=== PATIENT | female | born 1960 | race Caucasian/White ===

== ENCOUNTER 2018-10-14 22:18 | Outpatient (REF) | payer BC, SELFPAY ==
[2018-10-15 01:13] LABS: ALT 28 U/L (12-78); AST 15 U/L (15-37); Alkaline Phosphatase 98 U/L (46-116); Anion Gap 9.5 mmol/L (3-11); BUN 26 mg/dL (7-18); Bilirubin, Total 0.2 mg/dL (0.2-1.0); CO2 29.5 mmol/L (21.0-32.0); CREATININE 0.75 mg/dL (0.55-1.02); Calcium 9.5 mg/dL (8.5-10.1); Chloride 104 mmol/L (98-107); Cholesterol 169 mg/dL (50-200); Glucose 95 mg/dL (70-100); HDL Cholesterol 48 mg/dL (40-60); LDL CHOLESTEROL 99 mg/dL (<100); Potassium 4.4 mmol/L (3.5-5.1); Sodium 143 mmol/L (136-145); Total Protein 7.2 g/dL (6.4-8.2); Triglyceride 121 mg/dL (30-150)
== END 2018-10-14 22:38 ==
LOC: NCHCN 22:18
PROVIDERS: PCP Physician Assistant Medical; Visit Provider Physician Assistant Medical
DX: Z00.00 Encounter for general adult medical examination without abnormal findings (principal); R73.01 Impaired fasting glucose; I10 Essential (primary) hypertension
CPT/HCPCS: 80053; 80061; 83721

== ENCOUNTER 2019-02-22 06:06 | Day surgery (SDC) | payer MEDICAID, SELFPAY ==
[2019-02-22 06:32] VITALS: BP 137/83; PULSE 70; RESP 16; TEMP 36.8; O2SAT 99
--- NOTE | 2019-02-22 06:43 | W.COLOREPORT ---
Date of service: 02/22/19 Time of Service: 07: Colonoscopy Report Date of procedure: 02/22/19 Pre-op diagnosis general: Colon Cancer Screening Post-op diagnosis procedure note: same Procedure: Colonoscopy Surgeon: Licha Zepeda Anesthesia proc note operative: other (General/ ASA 2/Philip Benson, ROSE MARIE) Estimated blood loss (mL): 0 Pathology: none sent Complications: None Disposition: same day Indications: Mrs. Le is a pleasant 58 year old female who is here for a colonoscopy. Her last Colonoscopy was in 2008 and was normal. Risks, benefits and complications have been reviewed. Complications include but are not limited to bleeding, pain, perforation, missed small lesion/polyp, sore throat, aspiration and adverse reaction to the medications. Questions were entertained and answered to their satisfaction and they wished to proceed. No guarantees were given or implied. Prep: Miralax/Dulcolax Procedure Start Time: :26 Procedure End Time: :45 Retraction Time: 15 minutes Findings: Normal colon Procedure Description: After informed consent was obtained the patient was taken to the procedure room and placed in a left decubitous position. Monitors were applied and a time out was done. The patients name, date of , procedure, allergies to medications and metal in their body was reviewed. The patient was then sedated. Once sedated and comfortable a rectal exam was done. External exam was normal. Internal exam revealed a normal sphincter tone and no palpable masses. The scope was then introduced and retro-flexed. No internal hemorrhoids, polyps or masses were identified. The scope was then advanced to the cecum without difficulty. The TI and appendiceal orifice were identified. The prep was good. The scope was then slowly retracted over 15 minutes back into the rectum. There were no polyps and no diverticula. The scope was removed and the patient was woken up and taken back to Same day surgery in stable condition. The patient tolerated the procedure well and there were no immediate complications. Follow up: The patient should follow up in 10 years unless they develop changes in bowel habits or other new gastrointestinal complaints.
--- NOTE | 2019-02-22 06:46 | COLE_ITS ---
Date of service: 02/22/19 Time of Service: 07:26 Colonoscopy Report Date of procedure: 02/22/19 Pre-op diagnosis general: Colon Cancer Screening Post-op diagnosis procedure note: same Procedure: Colonoscopy Surgeon: Licha Zepeda Anesthesia proc note operative: other (General/ ASA 2/Philip Benson, ROSE MARIE) Estimated blood loss (mL): 0 Pathology: none sent Complications: None Disposition: same day Indications: Mrs. Le is a pleasant 58 year old female who is here for a colonoscopy. Her last Colonoscopy was in 2008 and was normal. Risks, benefits and complications have been reviewed. Complications include but are not limited to bleeding, pain, perforation, missed small lesion/polyp, sore throat, aspiration and adverse reaction to the medications. Questions were entertained and answered to their satisfaction and they wished to proceed. No guarantees were given or implied. Prep: Miralax/Dulcolax Procedure Start Time: :26 Procedure End Time: :45 Retraction Time: 15 minutes Findings: Normal colon Procedure Description: After informed consent was obtained the patient was taken to the procedure room and placed in a left decubitous position. Monitors were applied and a time out was done. The patients name, date of , procedure, allergies to medications and metal in their body was reviewed. The patient was then sedated. Once sedated and comfortable a rectal exam was done. External exam was normal. Internal exam revealed a normal sphincter tone and no palpable masses. The scope was then introduced and retro-flexed. No internal hemorrhoids, polyps or masses were identified. The scope was then advanced to the cecum without difficulty. The TI and appendiceal orifice were identified. The prep was good. The scope was then slowly retracted over 15 minutes back into the rectum. There were no polyps and no diverticula. The scope was removed and the patient was woken up and taken back to Same day surgery in stable condition. The patient tolerated the procedure well and there were no immediate comp lications. Follow up: The patient should follow up in 10 years unless they develop changes in bowel habits or other new gastrointestinal complaints.
--- NOTE | 2019-02-22 06:46 | W.PM.DSUDISC ---
Discharge Plan Disposition Patient Disposition: HOME Condition: Good Discharge Details Reason For Visit: Colonoscopy Attending Provider: Licha Zepeda Primary Care Provider: Jewel Figueroa Home Meds and New Rx's Prescriptions: Continued glucosamine-chondroitin 900 mg tablet PO RF: 0 lisinopril-hydrochlorothiazide 10-12.5 mg tablet 1 tab PO DAILY RF: 0 aspirin [Adult Low Dose Aspirin] 81 mg tablet,delayed release (DR/EC) 81 mg PO DAILY RF: 0 Glucos Chond Cplx Advanced 750 mg-100 mg- 125 mg-1.65 mg tablet 2 tab PO RF: 0 Discontinued polyethylene glycol 3350 17 gram/dose powder 238 g PO ONCE Qty: 238 RF: 0 bisacodyl [Dulcolax (bisacodyl)] 5 mg tablet,delayed release (DR/EC) 5 mg PO ONCE Qty: 4 RF: 0 Discharge Instructions Instructions: Colonoscopy (DC) Additional Instructions: Findings: Normal large bowel Follow up: 10 years Please call if you develop: fevers >101.5 Nausea or Vomiting Abdominal pain that is not transient DAY SURGERY UNIT POST COLONOSCOPY INSTRUCTIONS 1. Because there will be medication in your system for the next 24 hours, you may feel a little sleepy. Your coordination will be affected. Therefore: a. Do not drive or operate dangerous equipment for 24 hours. b. Do not drink alcohol beverages for 24 hours (not even beer). c. Plan to go home and rest for the day. 2. Generally there are no restrictions on your activity after a day or so has gone by, but you may feel a bit fatigued for a few days. 3 After you arrive home you may have a light meal and return to a normal diet as you can tolerate it without feeling sick to your stomach. 4. After surgery, you may feel pain or discomfort. This should be only transient, but if it persists please contact your doctor. 5. If there are any questions regarding the findings of your procedure, please feel free to contact your doctor. 6. If you are unable to contact your doctor with a problem, contact the hospital at [phone]. 7. Continue all your regular medications unless directed otherwise. I understand the above instructions and have no questions. Signature of Patient or Responsible Adult Escort Date/Time Name of Responsible Adult Escort Signature of Nurse Date/Time Activity:: Activity as Tolerated Diet:: As Tolerated Discharge Orders Discharge Orders: Discharge Order (Routine); Ordered 02/22/19 Ordered By: Licha Zepeda DS: Diagnosis Discharge Diagnosis (1) S/P colonoscopy: Status: Acute
[2019-02-22] MEDS: Lactated Ringers 1,000 ML 80 ML IV (06:49)
[2019-02-22 08:19] VITALS: BP 153/77; PULSE 61; RESP 16; TEMP 35.9; O2SAT 100
== END 2019-02-22 08:46 | disposition home or self-care (01) ==
PROVIDERS: PCP Physician Assistant Medical; Visit Provider Surgery
PROC: 0DJD8ZZ Inspection of Lower Intestinal Tract, Via Natural or Artificial Opening Endoscopic (ICD-10-PCS; CPT 45378; principal; 2019-02-22 07:30)
DX: Z12.11 Encounter for screening for malignant neoplasm of colon (principal); I10 Essential (primary) hypertension
CPT/HCPCS: 45378

== ENCOUNTER 2019-11-23 22:23 | Outpatient (REF) | payer MEDICAID, SELFPAY ==
[2019-11-23 21:08] LABS: Anion Gap 10.1 mmol/L (3-11); BUN 17 mg/dL (7-18); CO2 28.9 mmol/L (21.0-32.0); CREATININE 0.84 mg/dL (0.55-1.02); Calcium 9.7 mg/dL (8.5-10.1); Chloride 103 mmol/L (98-107); Glucose 91 mg/dL (74-106); Potassium 4.4 mmol/L (3.5-5.1); Sodium 142 mmol/L (136-145)
[2019-11-23 21:51] LABS: Hemoglobin A1C 6.1 % (3.8-5.6)
== END 2019-11-23 22:43 ==
LOC: NCHCN 22:23
PROVIDERS: PCP Physician Assistant Medical; Visit Provider Physician Assistant Medical
DX: I10 Essential (primary) hypertension (principal); R73.01 Impaired fasting glucose
CPT/HCPCS: 80048; 83036

== ENCOUNTER 2020-09-18 17:21 | Emergency (ER) | payer MEDICAID, SELFPAY ==
[2020-09-18 17:29] VITALS: BP 198/91; PULSE 115; RESP 20; TEMP 36.8; O2SAT 98
--- NOTE | 2020-09-18 17:45 | DI.CT_ITS ---
EXAM: CT ABDOMEN PELVIS W CLINICAL HISTORY: abdominal pain TECHNIQUE: Imaging Protocol: Axial computed tomography images with coronal and sagittal reformatted images were created and reviewed CONTRAST MATERIAL: Intravenous: Omnipaque 350 Contrast volume:100 mL Oral: No COMPARISON: CT RENAL COLIC WO CONTRAST from 05/09/2011 FINDINGS: ABDOMEN: Lung Bases: And atelectasis. Liver: Diffuse decreased attenuation suggesting fatty infiltration. Simple hepatic cysts are noted. No measurable mass. Portal, Superior Mesenteric, and Splenic Veins: Unremarkable. Gallbladder and Biliary Tract: The gallbladder is absent. There is unchanged dilatation of the extra hepatic bile ducts. Pancreas: Normal density, no abnormal calcifications or inflammatory process. Spleen: There is a 1.3 cm hypodense lesion in the spleen. Adrenals: No masses seen. Kidneys: Normal size, contour and axis. No radiodense stones or obstructive uropathy. Hypodensities a re seen in the kidneys bilaterally. They are too small for further characterization but likely refle ct small cysts. Abdominal Aorta: Abdominal portion non-dilated. Atherosclerosis. Bowel: No obstruction or bowel wall thickening. Appendix is unremarkable. Peritoneal Cavity: No ascites, collection or mesenteric inflammatory response. Lymph Nodes: Within normal limits. Bones: Unremarkable. Soft Tissues: Unremarkable. PELVIS: Bladder: Incompletely distended but grossly unremarkable. Reproductive Organs: Status post hysterectomy. Lymph Nodes: Within normal limits. Bones: Within normal limits. IMPRESSION: No acute abdominal or pelvic process. RADIATION DOSE DELIVERED: 914mGy.cm Total DLP DATA REPOSITORY: All CT scans at this facility are submitted to the National Radiology Data Registry (NRDR) Dose Index Registry (DIR) with the [employer] (A[employer]). RADIATION OPTIMIZATION: All CT scans at this facility use at least one of these dose optimization te chniques: automated exposure control; mA and/or kV adjustment per patient size (includes targeted exa ms where dose is matched to clinical indication); or iterative reconstruction.
--- NOTE | 2020-09-18 17:47 | ED.GENADUL_ITS ---
Discharge Plan Disposition Patient Disposition: HOME Condition: Stable Discharge Details Clinical Impression: Abdominal pain, Hypokalemia Primary Care Provider: Jewel Figueroa ED Provider: Elissa Juan Home Meds and New Rx's Prescriptions: Continued glucosamine-chondroitin 900 mg tablet PO RF: 0 lisinopril-hydrochlorothiazide 10-12.5 mg tablet 1 tab PO DAILY RF: 0 aspirin [Adult Low Dose Aspirin] 81 mg tablet,delayed release (DR/EC) 81 mg PO DAILY RF: 0 Glucos Chond Cplx Advanced 750 mg-100 mg- 125 mg-1.65 mg tablet 2 tab PO DAILY RF: 0 hydrochlorothiazide 12.5 mg tablet 12.5 mg PO DAILY RF: 0 Discharge Instructions Instructions: Hypokalemia (ED), Abdominal Pain (ED) Additional Instructions: Please return immediately to the emergency department if you develop any new or worsening symptoms, if your condition does not improve as expected, or if you become otherwise concerned. It is extremely important that you call soon as possible to make an appointment to be seen in follow-up for this visit by your primary care doctor. Referrals: Jewel Figueroa PA [Primary Care Provider] - Discharge Data Discharge Date/Time-TO BE ENTERED AT DEPARTURE: 09/19/20 00:06 Medical Decision Making Colleen Le is a 60-year-old woman with a history of hypertension who presented to the emergency department with suprapubic pain morning that became generalized abdominal pain, also with some left flank pain, felt similar to prior kidney stone. Accompanied by 1 episode of vomiting earlier this morning. On exam patient is well and nontoxic-appearing. She appears comfortable. There is mild generalized tenderness to palpation of the abdomen. No rebound, no guarding, no pulsatile mass, no other mass, no CVA tenderness to palpation. Concern for kidney stone, UTI, other. Exam/history at this time is not consistent with acute aortic pathology, acute coronary syndrome, sepsis, mesenteric ischemia. Plan for CT abdomen/pelvis, screening labs, IV fluid hydration. Will monitor and reassess. Potassium 2.9, will replete. CT negative for acute pathology. Patient reporting mild suprapubic pain at this time. Discussed plan for discharge pending potassium repletion, patient is amenable. Potassium running slowly due to burning with infusion. P.o. potassium given. Will recheck BMP. Repeat BMP okay. Okay for d/c home. I had a lengthy discussion with Patient regarding return to emergency department precautions, home care, and importance of outpatient follow-up. Pt verbalizes understanding of the plan and is amenable. Patientwith clear plan for outpatient follow-up. All questions were answered. Disposition decision was made weighing the risks and benefits of hospitalization versus outpatient treatment, the risk for further decompensation, and the patient's wishes. Medical Records Medical records reviewed: Yes I reviewed the patient's medical records. Imaging Data Radiologic Study: Attestation: I personally reviewed and interpreted this imaging study as follows: Radiologist's impression: Exam(s) Addendum created by Beny Lawrence MD on 09/18/2020 9:34:25 PM EST: Questionable 2 mm nonobstructing right renal calculus. 6 mm right renal cortical cyst, appears to be simple. The gallbladder is not identified. CBD is mildly dilated, approximately 13 mm within the proximal portion, tapers distally. Trace intrahepatic biliary ductal dilatation proximally. Initial report created on 09/18/2020 7:40:29 PM EST: PROCEDURE INFORMATION: Exam: CT Abdomen And Pelvis With Contrast Exam date and time: 09/18/2020 7:04 PM Age: 60 years old Clinical indication: Abdominal pain; Generalized TECHNIQUE: Imaging protocol: Computed tomography of the abdomen and pelvis with intravenous contrast. COMPARISON: No relevant prior studies available. FINDINGS: Lungs: Nonspecific bilateral dependent pleuroparenchymal changes in the lungs. Liver: 8 mm cyst between hepatic segments Nito numeral 8 and IV. Hepatic segment cyst measuring approximately 16 mm in diameter. Enlarged liver measures 17.4 cm in craniocaudal dimension. Gallbladder and bile ducts: No calcified stones. No ductal dilation. Pancreas: Unremarkable. No ductal dilation. Spleen: Hypodense splenic lesion, approximately 13 mm in diameter, possible cyst. Faint calcifications along the capsule of the spleen, may represent sequela of an old trauma or old splenic hemorrhage. Adrenal glands: Normal. No mass. Kidneys and ureters: Unremarkable. No hydronephrosis. Stomach and bowel: Unremarkable. No obstruction. No mucosal thickening. Appendix: Normal appendix. Intraperitoneal space: No free air. No significant fluid collection. Vasculature: Atherosclerotic distal abdominal aorta and branches. Lymph nodes: No enlarged lymph nodes. Urinary bladder: Unremarkable as visualized. Reproductive: Status post hysterectomy. Bones/joints: Unremarkable. No acute fracture. Soft tissues: The abdomen is obese. IMPRESSION: No acute intra-abdominal pathology. Lab Data Lab results reviewed: Yes I reviewed the patient's lab results. Labs: Laboratory Tests Range/Units 09/18/20 09/18/20 09/18/20 18:00 18:00 18:00 WBC (4.4-10.8) 10^3/uL 11.41 H RBC (3.93-5.22) 10^6/uL 4.36 Hgb (11.2-15.7) g/dL 11.1 L Hct (36.0-46.0) % 34.8 L MCV (80-95) fL 79.8 L MCH (27.0-33.0) pg 25.5 L MCHC (32.0-36.0) % 31.9 L RDW (11.7-14.6) % 19.1 H Plt Count (130-400) 10^3/uL 354 MPV (8.0-11.0) fL 9.9 Immature Gran % 0.5 Neutrophils % 79.8 Lymphocytes % 11.9 Monocytes % 6.4 Eosinophils % 1.0 Basophils % 0.4 Nucleated RBC % % 0 Absolute Neutrophils (1.2-6.7) 10^3/uL 9.11 H Absolute Lymphocytes (1.2-3.4) 10^3/uL 1.36 Absolute Monocytes (0.1-0.8) 10^3/uL 0.73 Absolute Eosinophils (0.0-0.7) 10^3/uL 0.11 Absolute Basophils (0.0-0.2) 10^3/uL 0.05 Sodium (136-145) mmol/L 136 Potassium (3.5-5.1) mmol/L 2.9 L* Chloride (98-107) mmol/L 99 Carbon Dioxide (21.0-32.0) mmol/L 28.7 Anion Gap (3-11) mmol/L 8.3 BUN (7-18) mg/dL 25 H Creatinine (0.55-1.02) mg/dL 0.88 Estimated GFR/1.73 m2 (mL/min/1.73m2) >= 60.00 Glucose (74-106) mg/dL 157 H Calcium (8.5-10.1) mg/dL 9.7 Magnesium (1.8-2.4) mg/dL 2.0 Total Bilirubin (0.2-1.0) mg/dL 0.2 AST (15-37) U/L 15 ALT (14-59) U/L 29 Alkaline Phosphatase (46-116) U/L 91 Total Protein (6.4-8.2) g/dL 7.4 Albumin (3.4-5.0) g/dL 3.9 Lipase (73-393) U/L 101 Urine Color (Yellow) Urine Clarity (Clear) Urine pH (5-8) Ur Specific [place] (1.005-1.025) Urine Protein (Negative) mg/dL Urine Ketones (Negative) mg/dL Urine Blood (Negative) Urine Nitrite (Negative) Urine Bilirubin (Negative) Urine Urobilinogen (Up TO 0.2) EU/dL Ur Leukocyte Esterase (Negative) Urine RBC (0-2) HPF Urine WBC (0-5) HPF Ur Epithelial Cells (Negative) HPF Urine Crystals (Negative) HPF Urine Bacteria (Negative) HPF Urine Mucus (Negative) Ur Culture Indicated? Urine Glucose (Negative) mg/dL Range/Units 09/18/20 18:53 WBC (4.4-10.8) 10^3/uL RBC (3.93-5.22) 10^6/uL Hgb (11.2-15.7) g/dL Hct (36.0-46.0) % MCV (80-95) fL MCH (27.0-33.0) pg MCHC (32.0-36.0) % RDW (11.7-14.6) % Plt Count (130-400) 10^3/uL MPV (8.0-11.0) fL Immature Gran % Neutrophils % Lymphocytes % Monocytes % Eosinophils % Basophils % Nucleated RBC % % Absolute Neutrophils (1.2-6.7) 10^3/uL Absolute Lymphocytes (1.2-3.4) 10^3/uL Absolute Monocytes (0.1-0.8) 10^3/uL Absolute Eosinophils (0.0-0.7) 10^3/uL Absolute Basophils (0.0-0.2) 10^3/uL Sodium (136-145) mmol/L Potassium (3.5-5.1) mmol/L Chloride (98-107) mmol/L Carbon Dioxide (21.0-32.0) mmol/L Anion Gap (3-11) mmol/L BUN (7-18) mg/dL Creatinine (0.55-1.02) mg/dL Estimated GFR/1.73 m2 (mL/min/1.73m2) Glucose (74-106) mg/dL Calcium (8.5-10.1) mg/dL Magnesium (1.8-2.4) mg/dL Total Bilirubin (0.2-1.0) mg/dL AST (15-37) U/L ALT (14-59) U/L Alkaline Phosphatase (46-116) U/L Total Protein (6.4-8.2) g/dL Albumin (3.4-5.0) g/dL Lipase (73-393) U/L Urine Color (Yellow) Yellow Urine Clarity (Clear) Clear Urine pH (5-8) 6.0 Ur Specific [place] (1.005-1.025) 1.020 Urine Protein (Negative) mg/dL Negative Urine Ketones (Negative) mg/dL Negative Urine Blood (Negative) Trace-intact H Urine Nitrite (Negative) Negative Urine Bilirubin (Negative) Negative Urine Urobilinogen (Up TO 0.2) EU/dL 0.2 Ur Leukocyte Esterase (Negative) Negative Urine RBC (0-2) HPF 0-2 Urine WBC (0-5) HPF 0-2 Ur Epithelial Cells (Negative) HPF Few Urine Crystals (Negative) HPF Negative Urine Bacteria (Negative) HPF Negative Urine Mucus (Negative) Negative Ur Culture Indicated? No Urine Glucose (Negative) mg/dL Negative ECG Data Attestation: I personally reviewed and interpreted this ECG (s) as follows: Interpretation: EKG shows sinus rhythm at 74, normal axis, no acute ischemic changes, nondiagnostic EKG HPI General Mode of arrival: ambulatory . Date/Time Provider Initiated Documentation: 09/18/20 17:46 . Limitations to Documentation: no limitations . Information obtained by: patient, RN notes reviewed and old records reviewed . HPI Narrative: Colleen Le is a 60-year-old woman with a history of hypertension presenting to emergency department with abdominal pain. Patient reports that this morning she noticed suprapubic pain and had one episode of nonbloody nonbilious vomiting. Patient reports that pain seemed to wax and wane. As it has progressed patient reports generalized abdominal pain, and pain in her left flank. Patient reports that she currently feels fairly well, with minimal pain. She reports that pain has been waxing and waning throughout the day. Patient reports history of kidney stones, and states that this feels similar to her as kidney stone she has had in the past. She denies any other pain, fevers, other vomiting, diarrhea, numbness, weakness, rash. Patient reports she has been eating and drinking as usual. She reports that she has had some mild constipation recently, and took MiraLAX this morning after suprapubic pain and vomiting, and did have a bowel movement subsequently that was normal. Patient does report that her lower abdominal pain feels like cramping, as if she needs to have a bowel movement. Patient reports that she does have this type of pain intermittently every few months or so. Related Data Home Medications Medication Instructions Recorded Confirmed aspirin 81 mg tablet,delayed 81 mg PO DAILY 12/14/18 09/18/20 release [id number] 2 tab PO DAILY tab 12/14/18 09/18/20 750 mg-100 mg-125 mg-1.65 mg tablet lisinopril 10 1 tab PO DAILY 12/14/18 09/18/20 mg-hydrochlorothiazide 12.5 mg tablet antiarthritic combination no.2 900 mg PO tab 01/25/19 01/25/19 mg tablet hydrochlorothiazide 12.5 mg PO DAILY 09/18/20 09/18/20 Allergies Allergy/AdvReac Type Severity Reaction Status Date / Time amoxicillin Allergy Severe Swelling/Ed Verified 09/18/20 17:35 jorge Cephalosporins Allergy Severe unknown Verified 09/18/20 17:35 amitriptyline Allergy Mild unknown Verified 09/18/20 17:35 metoprolol [From Lopressor] Allergy Mild unknown Verified 09/18/20 17:35 Penicillins Allergy Mild unknown Verified 09/18/20 17:35 rofecoxib [From Vioxx] Allergy Mild unknown Verified 09/18/20 17:35 General Stated Complaint: Abd Prob STEVE: 3 Review of Systems Narrative: Constitutional: denies fevers Eyes: denies eye pain ENT: denies ear pain, dental pain, sore throat Cardiovascular: denies chest pain Respiratory: denies SOB, cough GI: denies diarrhea, reports abdominal pain, vomiting : denies dysuria, reports left flank pain MSK: denies back pain, neck pain, arthralgias, myalgias Skin: denies rash Neuro: denies headaches, numbness, weakness [facility] Medical History Hypertension Surgical History (Updated 02/22/19 @ 06:46 by Licha Zepeda MD) H/O section History of colonoscopy History of partial hysterectomy Hx of cholecystectomy S/P colonoscopy (~02/22/19) 2009- Family History (Updated 02/22/19 @ 06:31 by Kristi Christian) Other COPD (chronic obstructive pulmonary disease) Diabetes Heart disease Social History Smoking/Tobacco Use Status: Former Tobacco Use Smoking risk assessment performed?: Yes Alcohol Intake: current Alcohol Intake frequency: a few times a month Alcohol type: wine Drug use: Never Substance use type: does not use Do you feel safe at home: Yes Do you feel safe in your relationship?: Yes Exam Narrative Exam Narrative: Constitutional: well and [id number], pleasant, conversing normally HENT: head atraumatic/normocephalic/normal inspection, mucous membranes moist Eyes: conjunctiva normal, sclera normal, pupils 3mm b/l Neck: no stridor, normal ROM, trachea midline Chest: normal inspection Resp: normal work of breathing, LCTAB Cardio: normal rate, normal rhythm, no murmur appreciated GI: abdomen soft, mild generalized tenderness to palpation, no rebound, no guarding, no pulsatile mass, no other mass, no CVA tenderness to palpation, non- distended Back: normal inspection, no rash Skin: warm, dry, normal color, no rash Neuro: alert, not altered, grossly non-focal, normal tone Ext: no edema Psych: normal mood, normal affect, normal behavior Course Vital Signs Vital signs: Vital Signs Temperature 36.8 C 09/18/20 17:29 Pulse 115 H 09/18/20 17:29 Respiratory Rate 20 09/18/20 17:29 Blood Pressure 198/91 H 09/18/20 17:29 Pulse Oximetry 98 09/18/20 17:29 Temperature 36.8 C 09/18/20 17:29 Temperature Source Temporal Artery Scan 09/18/20 17:29 Pulse 115 H 09/18/20 17:29 Respiratory Rate 20 09/18/20 17:29 Respiratory Effort Non-Labored 09/18/20 17:34 Blood Pressure 198/91 H 09/18/20 17:29 Blood Pressure Position Sitting 09/18/20 17:29 Pulse Oximetry 98 09/18/20 17:29 Oxygen Delivery Method Room Air 09/18/20 17:29 Oxygen Flow Rate 0 09/18/20 17:29 Pain Level 6 09/18/20 17:29
--- NOTE | 2020-09-18 18:00 | RT.EKG_ITS ---
APPROVED REPORT Exam: Resting ECG Patient Location: E HR:74 bpm ECG Measurements Heart Rate 74 AXIS ID 171 P 46 QRSd 77 QRS 20 QT 395 T 39 QTc 438 Conclusion Sinus rhythm...normal P axis, V-rate 60- 99 sinus rhythm at 74, normal axis, no acute ischemic changes, nondiagnostic EKG
[2020-09-18] MEDS: Normal Saline 250 ML 500 ML IV (18:07)
[2020-09-18 18:13] LABS: Abs Immature Grans 0.06 10^3/uL (0.0-0.06); Absolute Basophil Count 0.05 10^3/uL (0.0-0.2); Absolute Eosinophil Count 0.11 10^3/uL (0.0-0.7); Absolute Lymphocyte Count 1.36 10^3/uL (1.2-3.4); Absolute Monocyte Count 0.73 10^3/uL (0.1-0.8); Basophils % 0.4; HCT 34.8 % (36.0-46.0); HGB 11.1 g/dL (11.2-15.7); Immature Grans % 0.5; Lymphocytes % 11.9; MCH 25.5 pg (27.0-33.0); MCHC 31.9 % (32.0-36.0); MCV 79.8 fL (80-95); MPV 9.9 fL (8.0-11.0); Monocytes % 6.4; Neutrophils % 79.8; Nucleated RBC 0 %; Platelet Count 354 10^3/uL (130-400); RBC 4.36 10^6/uL (3.93-5.22); RDW 19.1 % (11.7-14.6); RDW-SD 54.4 fL; WBC 11.41 10^3/uL (4.4-10.8)
[2020-09-18 18:21] LABS: Absolute Neutrophil Count 9.11 10^3/uL (1.2-6.7)
[2020-09-18 18:27] LABS: ALT 29 U/L (14-59); AST 15 U/L (15-37); Albumin 3.9 g/dL (3.4-5.0); Alkaline Phosphatase 91 U/L (46-116); Anion Gap 8.3 mmol/L (3-11); BUN 25 mg/dL (7-18); Bilirubin, Total 0.2 mg/dL (0.2-1.0); CO2 28.7 mmol/L (21.0-32.0); CREATININE 0.88 mg/dL (0.55-1.02); Calcium 9.7 mg/dL (8.5-10.1); Chloride 99 mmol/L (98-107); Glucose 157 mg/dL (74-106); Lipase 101 U/L (73-393); Sodium 136 mmol/L (136-145); Total Protein 7.4 g/dL (6.4-8.2)
[2020-09-18 18:40] LABS: Potassium 2.9 mmol/L (3.5-5.1)
[2020-09-18 19:09] LABS: Bilirubin Negative (Negative); Blood Trace-intact (Negative); Clarity Clear (Clear); Glucose Negative (Negative); Ketones Negative (Negative); Leukocyte Esterase Negative (Negative); Nitrite Negative (Negative); Urobilinogen 0.2 EU/dL (Up TO 0.2)
[2020-09-18] MEDS: Omnipaque 350 MG/ML 100 ML BTL IJ (19:12)
[2020-09-18] MEDS: Normal Saline - Diluent 50 ML VIAL IV (19:13)
[2020-09-18 19:26] LABS: Bacteria Negative HPF (Negative); C & S Indicated? No; Crystals Negative HPF (Negative); Epithelial Cells Few HPF (Negative); Mucus Negative (Negative); RBC 0-2 HPF (0-2); WBC 0-2 HPF (0-5)
[2020-09-18] MEDS: POTASSIUM CHLORIDE 20 MEQ/100 ML BAG 50 MEQ IVPB ×2 (19:31→22:06)
--- NOTE | 2020-09-18 19:40 | DI.VRAD_ITS ---
Addendum created by Beny Lawrence MD on 09/18/2020 9:34:25 PM EST: Questionable 2 mm nonobstructing right renal calculus. 6 mm right renal cortical cyst, appears to be simple. The gallbladder is not identified. CBD is mildly dilated, approximately 13 mm within the proximal portion, tapers distally. Trace intrahepatic biliary ductal dilatation proximally. Initial report created on 09/18/2020 7:40:29 PM EST: PROCEDURE INFORMATION: Exam: CT Abdomen And Pelvis With Contrast Exam date and time: 09/18/2020 7:04 PM Age: 60 years old Clinical indication: Abdominal pain; Generalized TECHNIQUE: Imaging protocol: Computed tomography of the abdomen and pelvis with intravenous contrast. COMPARISON: No relevant prior studies available. FINDINGS: Lungs: Nonspecific bilateral dependent pleuroparenchymal changes in the lungs. Liver: 8 mm cyst between hepatic segments Nito numeral 8 and IV. Hepatic segment cyst measuring approximately 16 mm in diameter. Enlarged liver measures 17.4 cm in craniocaudal dimension. Gallbladder and bile ducts: No calcified stones. No ductal dilation. Pancreas: Unremarkable. No ductal dilation. Spleen: Hypodense splenic lesion, approximately 13 mm in diameter, possible cyst. Faint calcifications along the capsule of the spleen, may represent sequela of an old trauma or old splenic hemorrhage. Adrenal glands: Normal. No mass. Kidneys and ureters: Unremarkable. No hydronephrosis. Stomach and bowel: Unremarkable. No obstruction. No mucosal thickening. Appendix: Normal appendix. Intraperitoneal space: No free air. No significant fluid collection. Vasculature: Atherosclerotic distal abdominal aorta and branches. Lymph nodes: No enlarged lymph nodes. Urinary bladder: Unremarkable as visualized. Reproductive: Status post hysterectomy. Bones/joints: Unremarkable. No acute fracture. Soft tissues: The abdomen is obese. IMPRESSION: No acute intra-abdominal pathology. Dictated and Authenticated by: Beny Lawrence MD. Ordering:ASHISH Bowers MD
--- NOTE | 2020-09-18 20:10 | NUR.NOTE ---
Pt reports pain at LAC site, potassium slowed.
[2020-09-18 21:52] VITALS: BP 147/72; PULSE 68; RESP 16; TEMP 36.4; O2SAT 100
--- NOTE | 2020-09-18 22:00 | NUR.NOTE ---
Pt provided with jory covarrubias and akiko culp.
[2020-09-18] MEDS: Potassium Chloride 20 MEQ TABCR 40 MEQ PO (22:17)
[2020-09-18 23:34] LABS: Anion Gap 8.1 mmol/L (3-11); BUN 19 mg/dL (7-18); CO2 26.9 mmol/L (21.0-32.0); CREATININE 0.97 mg/dL (0.55-1.02); Calcium 8.7 mg/dL (8.5-10.1); Chloride 104 mmol/L (98-107); Estimated GFR 58.19 (mL/min/1.73m2); Glucose 193 mg/dL (74-106); Potassium 3.6 mmol/L (3.5-5.1); Sodium 139 mmol/L (136-145)
[2020-09-19 00:03] VITALS: BP 134/59; PULSE 80; RESP 16; O2SAT 97
== END 2020-09-19 00:06 | disposition home or self-care (01) ==
PROVIDERS: Emergency Provider Student in an Organized Health Care Education/Training Program; PCP Physician Assistant Medical
DX: E87.6 Hypokalemia (principal); R10.84 Generalized abdominal pain; I10 Essential (primary) hypertension; Z87.891 Personal history of nicotine dependence
CPT/HCPCS: 36415; 80048; 80053; 83690; 93005; 96361; 96365; 96366; 99285; 74177; 81003; 81015; 83735; 85025; 93010; 99284; J3480; J3490

== ENCOUNTER 2020-09-20 19:20 | Outpatient (REF) | payer MEDICAID, SELFPAY ==
[2020-09-20 20:16] LABS: Anion Gap 12.1 mmol/L (3-11); BUN 20 mg/dL (7-18); CO2 26.9 mmol/L (21.0-32.0); CREATININE 0.75 mg/dL (0.55-1.02); Chloride 100 mmol/L (98-107); Glucose 91 mg/dL (74-106); Potassium 3.5 mmol/L (3.5-5.1); Sodium 139 mmol/L (136-145)
== END 2020-09-20 19:40 ==
LOC: NCHCN 19:20
PROVIDERS: PCP Physician Assistant Medical; Visit Provider Physician Assistant Medical
DX: E87.6 Hypokalemia (principal)
CPT/HCPCS: 80048

== ENCOUNTER 2020-09-27 16:25 | Outpatient (REF) | payer MEDICAID, SELFPAY ==
[2020-09-27 20:50] LABS: BUN 20 mg/dL (7-18); CREATININE 0.85 mg/dL (0.55-1.02); Calcium 9.4 mg/dL (8.5-10.1); Chloride 101 mmol/L (98-107); Glucose 92 mg/dL (74-106); Sodium 139 mmol/L (136-145)
== END 2020-09-27 16:45 ==
LOC: NCHCN 16:25
PROVIDERS: PCP Physician Assistant Medical; Visit Provider Physician Assistant Medical
DX: E87.6 Hypokalemia (principal)
CPT/HCPCS: 80048

== ENCOUNTER 2021-12-26 15:28 | Outpatient (REF) | payer MEDICAID, SELFPAY ==
[2021-12-26 20:35] LABS: ALT 25 U/L (14-59); AST 16 U/L (15-37); Albumin 4.1 g/dL (3.4-5.0); Alkaline Phosphatase 101 U/L (46-116); Anion Gap 9.6 mmol/L (3-11); BUN 24 mg/dL (7-18); Bilirubin, Total 0.2 mg/dL (0.2-1.0); CO2 27.4 mmol/L (21.0-32.0); CREATININE 0.8 mg/dL (0.55-1.02); Calculated LDL 81 mg/dL (<100); Chloride 105 mmol/L (98-107); Cholesterol 157 mg/dL (<200); Glucose 97 mg/dL (74-106); HDL Cholesterol 47 mg/dL (40-60); Potassium 3.6 mmol/L (3.5-5.1); Sodium 142 mmol/L (136-145); Triglyceride 149 mg/dL (<150)
== END 2021-12-26 15:29 | disposition home or self-care (01) ==
LOC: NCHCN 15:28
PROVIDERS: PCP Physician Assistant Medical; Visit Provider Physician Assistant Medical
DX: R73.03 Prediabetes (principal); I10 Essential (primary) hypertension
CPT/HCPCS: 80053; 80061; 83036

== ENCOUNTER 2022-12-27 17:10 | Outpatient (REF) | payer MEDICAID, SELFPAY ==
[2022-12-27 19:09] LABS: HCT 37.9 % (36.0-46.0); HGB 12.6 g/dL (11.2-15.7); MCHC 33.2 % (32.0-36.0); MCV 87 fL (80-95); MPV 10.5 fL (8.0-11.0); Platelet Count 292 10^3/uL (130-400); RBC 4.34 10^6/uL (3.93-5.22); RDW 15.3 % (11.7-14.6); RDW-SD 49.1 fL; WBC 6.08 10^3/uL (4.4-10.8)
[2022-12-27 19:30] LABS: ALT 22 U/L (14-59); AST 16 U/L (15-37); Alkaline Phosphatase 92 U/L (46-116); Anion Gap 8.4 mmol/L (3-11); BUN 20 mg/dL (7-18); Bilirubin, Total 0.2 mg/dL (0.2-1.0); CO2 28.6 mmol/L (21.0-32.0); CREATININE 0.8 mg/dL (0.55-1.02); Calcium 9.5 mg/dL (8.5-10.1); Calculated LDL 85 mg/dL (<100); Chloride 102 mmol/L (98-107); Cholesterol 155 mg/dL (<200); Estimated GFR 82.23 (mL/min/1.73m2); Glucose 98 mg/dL (74-106); HDL Cholesterol 55 mg/dL (40-60); Potassium 3.6 mmol/L (3.5-5.1); Sodium 139 mmol/L (136-145); Total Protein 7.3 g/dL (6.4-8.2); Triglyceride 76 mg/dL (<150)
[2022-12-27 19:35] LABS: Hemoglobin A1C 5.8 % (<5.7)
== END 2022-12-27 17:11 | disposition home or self-care (01) ==
LOC: NCHCN 17:10
PROVIDERS: PCP Physician Assistant Medical; Visit Provider Physician Assistant Medical
DX: I10 Essential (primary) hypertension (principal); R73.03 Prediabetes; K76.0 Fatty (change of) liver, not elsewhere classified
CPT/HCPCS: 80053; 80061; 85027; 83036

== ENCOUNTER 2023-12-18 04:39 | Observation (INO) | payer MEDICARE, SELFPAY ==
[2023-12-18] VITALS (23 sets, daily range): BP systolic 121–210; BP diastolic 58–99; PULSE 68–104; RESP 5–18; TEMP 36.4–37.8; O2SAT 91–99
--- NOTE | 2023-12-18 04:30 | RT.EKG_ITS ---
APPROVED REPORT Exam: Resting ECG Reason for Exam: chest pain Patient Location: E HR:98 bpm ECG Measurements Heart Rate 98 AXIS KS 159 P 5 QRSd 75 QRS 1 QT 351 T 60 QTc 450 Conclusion Sinus rhythm.[address] ST depressions V5,V6, II
--- NOTE | 2023-12-18 05:00 | DI.CT_ITS ---
Exam(s) CT THORAX ABD/PEL CTA EXAM: CT THORAX ABD/PEL CTA CLINICAL HISTORY: eval aorta. TECHNIQUE: Imaging Protocol: Axial computed tomography images with coronal and sagittal reformatted images were created and reviewed CONTRAST MATERIAL: Intravenous: Omnipaque 350 Contrast volume:100 ml Oral: None COMPARISON: CT CT ABDOMEN PELVIS W from 09/18/2020 FINDINGS: CHEST: AORTA: The diameter of the ascending thoracic aorta is within normal limits. There is no evidence of aortic dissection. Only mild atherosclerotic changes. Diameter of the arch and descending thoracic aorta are within normal limits and there is no evidence of abdominal aortic aneurysm nor dissection. The celiac and superior mesenteric arteries are patent. There is calcification-calcified plaque at the origin of the right renal artery. Inferior mesenteric artery is patent. Aortic bifurcation is unremarkable. There is some calcified plaque on the medial wall the left common iliac artery but wit hout significant stenosis and no dissection. Right common iliac artery is unremarkable. Both youth ministry director al iliac arteries are unremarkable as are the bilateral common femoral arteries. PULMONARY ARTERIES: There are no intraluminal filling defects to suggest the presence of a acute pulm onary emboli. LUNGS: No infiltrates nor pleural effusions. No ominous pulmonary nodules.. MEDIASTINUM: There is no hilar nor mediastinal adenopathy. Visualized thyroid unremarkable. CARDIAC: Heart size is normal. There is mild thickening of the anterior pericardium. Maximum thickn ess 4 millimeters. ABDOMEN: There is no evidence of abdominal aortic aneurysm nor dissection.There is no aneurysmal dilatation of the common iliac arteries.The celiac and superior mesenteric arteries are patent. There is no ascites. LIVER: There are benign-appearing cysts in the liver, 1 of which has increased in size from 2020, pre viously measuring 1 cm and presently measuring 1.5 cm.. The largest cyst is located inferiorly in th e right hepatic lobe and measures 2.5 cm, unchanged. Hepatic steatosis is noted. GALLBLADDER/BILIARY: Gallbladder is not seen and presumed to be surgically absent. The CBD diameter is again noted to be enlarged, measuring 1.8 cm proximally and 0.8 cm distally, but exhibiting minima l change from the prior study. There are no radiopaque calculi seen in the lower CBD and no obvious mass at this level. STOMACH/SMALL BOWEL: The gastric wall appears thickened-edematous as does the pylorus and there is an I ileus appearance of the duodenal C-loop which is fluid-filled and exhibits diameter 3 cm. Distal to the ligament of Treitz is small-bowel loops exhibit normal diameter but many are fluid-filled and upper normal diameter. There is no evidence of small-bowel obstruction. No free air. No abscess. Colon is mostly collapsed. Appendix unremarkable.. PANCREAS: No evidence of pancreatic mass nor dilatation of the pancreatic duct. SPLEEN: Spleen is not enlarged. There are no intrasplenic lesions. Splenic and portal veins are fountain nt. ADRENALS: There are no significant adrenal masses. KIDNEYS: There is a small nonobstructive 2 millimeter calculus in the right kidney. No other calculi nor hydronephrosis. No solid renal masses.. ABDOMINAL AORTA: The abdominal aorta is not enlarged. LYMPH NODES: There is no retroperitoneal nor para-aortic adenopathy. No obvious mesenteric masses. ABDOMINAL WALL: No evidence of significant anterior abdominal wall hernia. PELVIS: LYMPH NODES: There is no intrapelvic nor inguinal adenopathy. GI: No evidence of appendicitis.There is no significant sigmoid diverticular disease. URINARY BLADDER: Partially collapsed. Slightly thickened wall either related to cystitis or under di stension REPRODUCTIVE: Uterus surgically absent. No abnormal adnexal masses. No free fluid in the pelvis. OSSEOUS: No fractures. No significant osseous lesions. IMPRESSION: 1. No evidence of aortic aneurysm nor aortic dissection, as per request. 2. Slight thickening of the anterior pericardium which probably indicates a small pericardial effusio n. Normal heart size. 3. No evidence of acute pulmonary emboli. 4. Abnormal appearing stomach and duodenal wall probably consistent with gastritis/duodenitis. Also multiple fluid filled but nondilated small bowel loops/enteritis pattern. The colon is collapsed. T here is no small bowel obstruction. 5. Previous cholecystectomy and hysterectomy. 6. Solitary small 2 mm nonobstructive calculus in the inferior pole region of the right kidney. First read by [facility]. Final report called by myself to ER physician 12/18/2023 8:30 a.m. RADIATION DOSE DELIVERED: Total DLP DATA REPOSITORY: All CT scans at this facility are submitted to the National Radiology Data Registry (NRDR) Dose Index Registry (DIR) with the [employer] (ACR). RADIATION OPTIMIZATION: All CT scans at this facility use at least one of these dose optimization te chniques: automated exposure control; mA and/or kV adjustment per patient size (includes targeted exa ms where dose is matched to clinical indication); or iterative reconstruction.
[2023-12-18 05:03] LABS: Abs Immature Grans 0.03 10^3/uL (0.0-0.06); Absolute Basophil Count 0.06 10^3/uL (0.0-0.2); Absolute Eosinophil Count 0.05 10^3/uL (0.0-0.7); Absolute Lymphocyte Count 1.06 10^3/uL (1.2-3.4); Absolute Monocyte Count 0.45 10^3/uL (0.1-0.8); Absolute Neutrophil Count 8.89 10^3/uL (1.2-6.7); Basophils % 0.6; Eosinophils % 0.5; HCT 44.8 % (36.0-46.0); HGB 15.3 g/dL (11.2-15.7); Immature Grans % 0.3; Lymphocytes % 10.1; MCH 30.5 pg (27.0-33.0); MCHC 34.2 % (32.0-36.0); MCV 89 fL (80-95); MPV 9.3 fL (8.0-11.0); Monocytes % 4.3; Neutrophils % 84.2; Platelet Count 342 10^3/uL (130-400); RBC 5.01 10^6/uL (3.93-5.22); RDW 13.1 % (11.7-14.6); RDW-SD 43.1 fL; WBC 10.54 10^3/uL (4.4-10.8)
[2023-12-18] MEDS: Ondansetron 4 MG/2 ML VIAL IVP (05:09)
[2023-12-18] MEDS: MORPHine 4 MG/ML SYR IVP (05:11)
--- NOTE | 2023-12-18 05:17 | ED.GENADUL_ITS ---
Discharge Plan Discharge Details Chief Complaint: Abd Prob Primary Care Provider: Jewel Figueroa ED Provider: Jessica Chavez Home Meds and New Rx's Prescriptions: No Action glucosamine-chondroitin 900 mg tablet 500 mg PO lisinopril-hydrochlorothiazide 10-12.5 mg tablet 1 tab PO DAILY Glucos Chond Cplx Advanced 750 mg-100 mg- 125 mg-1.65 mg tablet 2 tab PO DAILY Victoza 2-Vijay 0.6 mg/0.1 mL (18 mg/3 mL) pen injector 1.2 mg subcut DAILY HPI General Date/Time Provider Initiated Documentation: 12/18/23 04:56 . Limitations to Documentation: no limitations . Information obtained by: patient . HPI Narrative: 63-year-old female with past medical history of hypertension, prediabetes. Patient has limited appreciation of her medical history and medications. She presents with severe epigastric pain radiating to her back. Onset of symptoms last night. She states that has been constant throughout the day, but waxes and wanes in severity. She reports the coming and going nature of the pain is similar to prior kidney stones, but this pain and location is different. She reports several days ago she had left shoulder pain. Her daughter, nurse, was concerned and thought she should come in for an EKG, but she did not. She reports some epigastric burning heartburn type sensation associated with the pain. She reports 2 episodes of vomiting and that the burning improved after the vomiting. She does not smoke. Related Data Home Medications Medication Instructions Recorded Confirmed [id number] 2 tab PO DAILY 12/14/18 09/18/20 750 mg-100 mg-125 mg-1.65 mg tablet (Glucosamine Chondroit Complx Advan) lisinopril 10 1 tab PO DAILY 12/14/18 12/18/23 mg-hydrochlorothiazide 12.5 mg tablet antiarthritic combination no.2 900 500 mg PO 01/25/19 01/25/19 mg tablet (glucosamine-chondroitin) liraglutide 0.6 mg/0.1 mL (18 mg/3 1.2 mg subcut DAILY 12/18/23 12/18/23 mL) subcutaneous pen injector (Victoza 2-Vijay) Allergies Allergy/AdvReac Type Severity Reaction Status Date / Time amoxicillin Allergy Severe Swelling/Ed Verified 12/18/23 04:56 jorge Cephalosporins Allergy Severe unknown Verified 12/18/23 04:56 Penicillins Allergy Mild unknown Verified 12/18/23 04:56 General Stated Complaint: Abd Prob STEVE: 3 Exam Narrative Exam Narrative: Review of Systems: All systems reviewed & are unremarkable except as noted in HPI and below Well-developed, appears uncomfortable NCAT PERRL, normal conjunctiva RRR, no murmur, clear bilaterally, no crackles Unlabored respiratory effort Nondistended abdomen, soft, mild generalized tenderness in the epigastric area, no guarding or rebound, no CVA tenderness Extremities w/o deformity, no cyanosis, no edema No rashes or lesions. no focal neurologic deficits Appropriate mood and affect Course Vital Signs Vital signs: Vital Signs Temperature 36.4 C L 12/18/23 04:50 Pulse 104 H 12/18/23 04:50 Respiratory Rate 18 12/18/23 04:50 Blood Pressure 210/89 H 12/18/23 04:50 Pulse Oximetry 97 12/18/23 04:50 Temperature 36.4 C L 12/18/23 04:50 Temperature Source Temporal Artery Scan 12/18/23 04:50 Pulse 92 H 12/18/23 04:59 Pulse Rhythm Regular 12/18/23 04:59 Respiratory Rate 17 12/18/23 04:59 Respiratory Effort Normal 12/18/23 04:52 Respiratory Depth Normal 12/18/23 04:59 Respiratory Pattern Normal 12/18/23 04:59 Blood Pressure 134/99 H 12/18/23 04:59 Blood Pressure Mean 110 12/18/23 04:59 Blood Pressure Position Sitting 12/18/23 04:59 Pulse Oximetry 97 12/18/23 04:59 Oxygen Delivery Method Room Air 12/18/23 04:59 Oxygen Flow Rate 0 12/18/23 04:59 Pain Level 5 12/18/23 04:50 Lab/Test Results Lab/Test Results: Laboratory Tests Range/Units 12/18/23 04:50 WBC (4.4-10.8) 10^3/uL 10.54 RBC (3.93-5.22) 10^6/uL 5.01 Hgb (11.2-15.7) g/dL 15.3 Hct (36.0-46.0) % 44.8 MCV (80-95) fL 89 MCH (27.0-33.0) pg 30.5 MCHC (32.0-36.0) % 34.2 RDW (11.7-14.6) % 13.1 Plt Count (130-400) 10^3/uL 342 MPV (8.0-11.0) fL 9.3 Immature Gran % 0.3 Neutrophils % 84.2 Lymphocytes % 10.1 Monocytes % 4.3 Eosinophils % 0.5 Basophils % 0.6 Nucleated RBC % (0.0-0.3) % 0.0 Absolute Neutrophils (1.2-6.7) 10^3/uL 8.89 H Absolute Lymphocytes (1.2-3.4) 10^3/uL 1.06 L Absolute Monocytes (0.1-0.8) 10^3/uL 0.45 Absolute Eosinophils (0.0-0.7) 10^3/uL 0.05 Absolute Basophils (0.0-0.2) 10^3/uL 0.06 Medical Decision Making Emergent evaluation of epigastric abdominal pain. Initial differential includes ACS, aortic pathology, pancreatitis. Patient presents tachycardic, hypertensive. Vital signs did improve after getting into the room. Her EKG demonstrates depressions in V5 V6 and lead II. These are new from prior. Given the location of the symptoms and the radiation to the back, she was sent for CTA to evaluate the aorta. Lab work including cardiac enzymes have been ordered. Once the aorta has been evaluated, I will give aspirin if this test is normal. Nausea medication and pain medication were given. Will monitor closely. 0630 patient's symptoms resolved says that now she just feels hungry. initial trop and other lab work unremarkable. No elevation in lipase. No leukocytosis or anemia. CT read pending. 0720 signed out to oncoming provider pending CTA read, repeat EKG and trop. if CTA read is negative, aspirin can be giving. If patient is feeling better and repeat testing unremarkable, can likely be discharged home with PCP follow up. Medical Records Medical records reviewed: Yes I reviewed the patient's medical records. Lab Data Lab results reviewed: Yes I reviewed the patient's lab results. ECG Data Attestation: I personally reviewed and interpreted this ECG (s) as follows: Prior ECG tracings: available for review Interpretation: Sinus 98, ST depressions V5 V6 lead II, no ST elevations Quality:[facility] Related Social Needs: No Data to Display PFSH All Active Problems S/P colonoscopy (Acute ~02/22/19) 2009- Encounter for screening colonoscopy (Acute) Medical History Hypertension Surgical History History of partial hysterectomy H/O section Hx of cholecystectomy History of colonoscopy Family History Other COPD (chronic obstructive pulmonary disease) Diabetes Heart disease Social History Smoking/Tobacco Use Status: Former Tobacco Use Smoking risk assessment performed?: Yes Alcohol Intake: current Alcohol Intake frequency: a few times a month Alcohol type: wine Drug use: Never Substance use type: does not use Do you feel safe at home: Yes Do you feel safe in your relationship?: Yes Sign Out Sign Out Data: Sign Out Comment: 63y F with HTN, ? DM presents with epigastric pain, vomit x2. EKG with new depressions. Trop negative. pending: CTA read- if CTA read is n egative, aspirin can be given repeat EKG - eval for dynamic change trop#2 If patient is feeling better and repeat testing unremarkable, can likely be discharged home with PCP follow up. Last updated by Jessica Chavez MD at 12/18/23 07:25
[2023-12-18 05:18] LABS: Prothrombin Time 9.9 sec (9.1-11.1)
[2023-12-18 05:26] LABS: ALT 21 U/L (14-59); AST 15 U/L (15-37); Albumin 4.1 g/dL (3.4-5.0); Alkaline Phosphatase 94 U/L (46-116); Anion Gap 8.8 mmol/L (3-11); BUN 19 mg/dL (7-18); Bilirubin, Total 0.4 mg/dL (0.2-1.0); CO2 31.2 mmol/L (21.0-32.0); CREATININE 0.8 mg/dL (0.55-1.02); Calcium 9.5 mg/dL (8.5-10.1); Chloride 103 mmol/L (98-107); Estimated GFR 81.72 (mL/min/1.73m2); Glucose 127 mg/dL (74-106); Lipase 43 U/L (16-77); Magnesium 2.1 mg/dL (1.8-2.4); Potassium 3.3 mmol/L (3.5-5.1); Sodium 143 mmol/L (136-145); Total Protein 7.9 g/dL (6.4-8.2); Troponin I < 50 ng/L (< or =60)
[2023-12-18] MEDS: Omnipaque 350 MG/ML 100 ML BTL IJ (05:40)
[2023-12-18] MEDS: Normal Saline - Diluent 50 ML VIAL IJ (05:41)
[2023-12-18] MEDS: Famotidine 20 MG/2 ML VIAL IVP (06:49)
[2023-12-18] MEDS: Potassium Chloride Liquid 20 MEQ PKT PO (06:49)
--- NOTE | 2023-12-18 07:45 | RT.EKG_ITS ---
APPROVED REPORT Exam: Resting ECG Reason for Exam: repeat Patient Location: E HR:79 bpm ECG Measurements Heart Rate 79 AXIS [place] 165 P -13 QRSd 76 QRS -1 QT 390 T 44 QTc 447 Conclusion Sinus rhythm...normal P axis, V-rate 60- 99 Low voltage, precordial leads...precordial leads <1.0mV
--- NOTE | 2023-12-18 07:55 | DI.VRAD_ITS ---
PROCEDURE INFORMATION: Exam: CTA Chest With Contrast CTA Abdomen and Pelvis With Contrast Exam date and time: 12/18/2023 5:27 AM Age: 63 years old Clinical indication: Other: Upper back and anterior chest pain; Additional info: Eval aorta TECHNIQUE: Imaging protocol: Computed tomographic angiography of the chest with contrast. Exam focused on the arteries. Computed tomographic angiography of the abdomen and pelvis with contrast. Exam focused on the arteries. 3D rendering (Not supervised by radiologist): MIP and/or 3D reconstructed images were created by the technologist. Contrast material: OMNI 350; Contrast volume: 100 ml; Contrast route: INTRAVENOUS (IV); COMPARISON: CT ABDOMEN PELVIS W 09/18/2020 6:57 PM FINDINGS: Vascular: Thoracic aorta and abdominal aorta have normal caliber without flow-limiting stenosis or dissection. Very mild atherosclerotic calcifications of the aortic arch. Mild aortoiliac atherosclerotic calcifications. No significant stenosis at the origin of the celiac artery, SMA, or ANGEL. Calcification involves proximal renal arteries without definite flow limiting stenosis. Mild iliac artery atherosclerosis without significant stenosis of bilateral common, internal, or external iliac arteries. No appreciable coronary artery calcifications are identified on this non gated exam. Chest: Exam not tailored specifically for assessment of pulmonary arteries but no large or central pulmonary embolus is detected. No mediastinal adenopathy. A few borderline prominent axillary nodes, nonspecific. There are no pleural or pericardial effusions. No focal pulmonary consolidation or suspicious pulmonary mass. Minimal posterior dependent atelectasis or subpleural fibrosis. No acute osseous abnormality detected. Abdomen/pelvis: A few small hepatic cysts are present. No obvious acute abnormality of the liver, spleen, pancreas, adrenal glands, or kidneys is identified. Punctate nonobstructing stone in the lower pole of the right kidney. No hydronephrosis involving either kidney. The gallbladder is surgically absent. Common bile duct is dilated, but without significant change since 2020. The appendix is unremarkable. Images through the pelvis demonstrate no evidence of bowel obstruction or obvious acute pelvic abnormality. Prior hysterectomy. No acute osseous abnormality detected. IMPRESSION: 1. No evidence of aortic dissection or aneurysm. 2. No obvious acute abnormality detected within the chest, abdomen, or pelvis. Various incidental and nonacute findings as reported above. Dictated and Authenticated by: Winston Salmon MD. Ordering:[facility] Scott Fitzpatrick MD
--- NOTE | 2023-12-18 08:08 | W.EDPROG ---
Date of service: 12/18/23 Time of Service: 08:34 Medical Decision Making 730??care was signed out by Dr. Chavez, please see her documentation regarding initial ED presentation and course. Plan at signout was to follow-up on CTA, reassess patient, repeat EKG and troponin. 835??CTA was interpreted by radiology initially as no evidence of aortic dissection or aneurysm. No obvious acute abnormality detected within the chest, abdomen or pelvis. There is incidental and nonacute findings reported including liver cyst and renal stone and atherosclerotic calcifications. CTA was over read by radiology to include no PE, thick pericardium 3 to 4 mm with questionable concern for small pericardial effusion. Also of note duodenum and stomach concerning for gastroenteritis. Repeat EKG was reviewed and interpreted by me: Sinus rhythm, low voltage precordial leads, significant flattening of T waves laterally V4 to V6 as well as inferiorly 2 3 aVF compared to prior from earlier today. I did check with the tech who performed EKG and notes lead placement did not change as she used prior stickers. -- results were discussed with the patient. Patient notes pain improved. Given EKG changes and CT findings I do think the patient should have a formal echocardiogram and be hospitalized for further diagnostic workup and cardiac monitoring. 852 --I spoke with Dr. Camacho, on-call hospitalist, discussed ED presentation and course, he will admit the patient. Lab Data Lab results reviewed: Yes I reviewed the patient's lab results. Labs: Laboratory Tests Range/Units 12/18/23 04:50 WBC (4.4-10.8) 10^3/uL 10.54 RBC (3.93-5.22) 10^6/uL 5.01 Hgb (11.2-15.7) g/dL 15.3 Hct (36.0-46.0) % 44.8 MCV (80-95) fL 89 MCH (27.0-33.0) pg 30.5 MCHC (32.0-36.0) % 34.2 RDW (11.7-14.6) % 13.1 Plt Count (130-400) 10^3/uL 342 MPV (8.0-11.0) fL 9.3 Immature Gran % 0.3 Neutrophils % 84.2 Lymphocytes % 10.1 Monocytes % 4.3 Eosinophils % 0.5 Basophils % 0.6 Nucleated RBC % (0.0-0.3) % 0.0 Absolute Neutrophils (1.2-6.7) 10^3/uL 8.89 H Absolute Lymphocytes (1.2-3.4) 10^3/uL 1.06 L Absolute Monocytes (0.1-0.8) 10^3/uL 0.45 Absolute Eosinophils (0.0-0.7) 10^3/uL 0.05 Absolute Basophils (0.0-0.2) 10^3/uL 0.06 PT (9.1-11.1) sec 9.9 INR (0.9-1.1) 1.0 Sodium (136-145) mmol/L 143 Potassium (3.5-5.1) mmol/L 3.3 L Chloride (98-107) mmol/L 103 Carbon Dioxide (21.0-32.0) mmol/L 31.2 Anion Gap (3-11) mmol/L 8.8 BUN (7-18) mg/dL 19 H Creatinine (0.55-1.02) mg/dL 0.8 Est GFR (CKD-EPI 2020) (mL/min/1.73m2) 81.72 Glucose (74-106) mg/dL 127 H Calcium (8.5-10.1) mg/dL 9.5 Magnesium (1.8-2.4) mg/dL 2.1 Total Bilirubin (0.2-1.0) mg/dL 0.4 AST (15-37) U/L 15 ALT (14-59) U/L 21 Alkaline Phosphatase (46-116) U/L 94 Troponin I (< or =60) ng/L < 50 Total Protein (6.4-8.2) g/dL 7.9 Albumin (3.4-5.0) g/dL 4.1 Lipase (16-77) U/L 43 Quality:SDOH Health Related Social Needs: No Data to Display Sign Out Sign Out Data: Sign Out Comment: 63y F with HTN, ? DM presents with epigastric pain, vomit x2. EKG with new depressions. Trop negative. pending: CTA read- if CTA read is negative, aspirin can be given repeat EKG - eval for dynamic change trop#2 If patient is feeling better and repeat testing unremarkable, can likely be discharged home with PCP follow up. Last updated by Jessica Chavez MD at 12/18/23 07:25 Discharge Plan Disposition Patient Disposition: Admit to [facility] Condition: Stable Discharge Details Chief Complaint: Abd Prob Clinical Impression: Acute electrocardiogram changes, Hepatic cyst, Kidney stone on right side, Gastroenteritis Primary Care Provider: Jewel Figueroa ED Provider: Juanpablo Juan Home Meds and New Rx's Prescriptions: No Action glucosamine-chondroitin 900 mg tablet 500 mg PO lisinopril-hydrochlorothiazide 10-12.5 mg tablet 1 tab PO DAILY Glucos Chond Cplx Advanced 750 mg-100 mg- 125 mg-1.65 mg tablet 2 tab PO DAILY Victoza 2-Vijay 0.6 mg/0.1 mL (18 mg/3 mL) pen injector 1.2 mg subcut DAILY
--- NOTE | 2023-12-18 08:45 | DI.US_ITS ---
APPROVED REPORT EXAM: Comprehensive 2D, Doppler, and color-flow Echocardiogram Patient Location: In-Patient Room/Bed: [facility] Sil[place] Snapper: Kendal Abreu RDCS (AE) Indications: EKG Changes, Pericardial thickening on CT Other Information Study Quality: Adequate Conclusion Normal left ventricular wall thickness and chamber size. Ejection fraction is 60%. Wall motion is no rmal Normal right ventricular size and function Both atria are normal in size There is an atrial septal aneurysm There are no structural or hemodynamically significant valvular abnormalities Estimated right ventricular systolic pressure is 22 mmHg Wall motion Left Ventricle The left ventricle is normal size. The left ventricular systolic function is normal. The left ventric ular ejection fraction is within the normal range. There is normal left ventricular wall thickness. T here is normal LV segmental wall motion. There is no ventricular septal defect visualized. LVEF is 60 %. Right Ventricle The right ventricle is normal size. The right ventricular systolic function is normal. Atria The left atrium size is normal. The right atrium size is normal. Atrial septal aneurysm is present. Aortic Valve The aortic valve is normal in structure. Aortic valve is trileaflet. There is no aortic valvular sten osis. No aortic regurgitation is present. Mitral Valve The mitral valve is normal in structure. No evidence of mitral valve stenosis. Trace mitral regurgita tion. Tricuspid Valve The tricuspid valve is normal in structure. There is no tricuspid valve stenosis. Trace tricuspid reg urgitation. The RVSP is 22.7 mmHg. Pulmonic Valve The pulmonary valve is normal in structure. There is no pulmonic valvular stenosis. There is no pulmo gayle valvular regurgitation. Great Vessels The aortic root is normal in size. The ascending aorta is normal. Aortic arch is normal in caliber. I VC is normal in size and collapses >50% with inspiration. Pericardium There is no pericardial effusion. 2D Dimensions IVSD d PLAX 1.03 cm F: 0.6-1.0 Ao Root d 2.99 cm F: 2.7 - 3.3 LVPW d PLAX 1.00 cm F: 0.6 - 1.0 Ao Asc Diam d 3.30 cm F: 2.3 - 3.1 LVID d PLAX 4.00 cm F: 3.8 - 5.2 LVDs 2.70 cm F: 2.2 - 3.5 LV EF Teichholz 60.6 % FS 31.91 % LV EDV (Teich) 68.3 mL LV ESV (Teich) 26.9 mL M-Mode TAPSE 1.49 cm (M/F) >1.7 Auto EF LV EDV A4C 71.8 mL LV EDV A2C 81.9 mL LV EDV BP 75.9 mL LV ESV A4C 31.1 mL LV ESV A2C 36.3 mL LV ESV BP 33.6 mL LVEF(%) A4C 56.7 % LVEF(%) A2C 55.7 % LVEF(%) BP 55.7 % LV SV A4C 40.7 ml LV SV A2C 45.6 ml LV SV BP 42.3 ml LV CO A4C 2.8 L/min LV CO A2C 3.2 L/min LV CO BP 3.0 L/min HR A4C 69.10 BPM HR A2C 69.91 BPM LV EDV Index (BP) LA Volume LA Length A4C 4.6 cm LA Length A2C 4.9 cm LA Area A4C s 10.89 cm2 LA Area A2C s 15.48 cm2 LA Vol A4C A-L 22.13 mL LA Vol A2C A-L 41.24 mL LA Vol Biplane A-L 31.5 mL LA Vol/BSA A4C A-L LA Vol/BSA A2C A-L LA Vol/BSA BP A-L 18.8 mL/m2 LA Vol A4C MOD 20.3 mL LA Vol A2C MOD 38.7 mL LA Vol BP MOD 29.1 mL RA Volume RA Area A4C 7.0 cm2 RA ESV A4C (A-L) 12.3mL RA Vol/BSA A4C A-L RA Length A4C 3.3 cm RA ESV A4C (MOD) 11.6mL LV Diastology MV E' medial 0.080 (>0.07 m/s) MV E Vmax 0.70 (0.4-1.3 m/s) MV E/E' MED 8.73 (<14) MV A Vmax 0.90 (0.4-1.3 m/s) E/A Ratio 0.8 Aortic Valve AoV Vmax 1.56 m/s LVOT Vmax 1.14 m/s AoV Peak Grad 9.7 mmHg LVOT Peak Grad 5.2 mmHg AoV Area (Vmax) 2.04 cm2 LVOT VTI 0.299 m AoV VTI 0.298 m LVOT Mean Grad 3.2 mmHg AoV Mean Luis. 1.12 m/s LVOT SV 83.23 mL AoV Mean Grad 5.6 mmHg LVOT Diam s 1.85 cm AoV Area (VTI) 2.79 cm2 Velocity Ratio 0.73 Mitral Valve MV DT 304 (160-240 msec) MV Vmax TIPS 0.95 m/s MV Mean Grad 1.6 (<2mmHg) MV VTI 0.290 m Pulmonary Valve PV Vmax 0.87 (0.5-1.5 m/s) RVOT Vmax 0.65 m/s PV Peak Grad 3.0 mmHg RVOT Peak Gr. 1.7 mmHg PV Mean Luis 0.60 m/s RVOT VTI 0.154 m PV Mean Grad 1.6 mmHg RVOT Mean Gr. 0.8 mmHg Tricuspid Valve RA Pressure 3.00 mmHg TR Vmax 2.22 m/s TV S' 0.16 m/s TR Peak Grad 19.6 mmHg RVSP (TR) 22.7 mmHg
[2023-12-18 08:52] LABS: Troponin I < 50 ng/L (< or =60)
--- NOTE | 2023-12-18 08:54 | HPE_ITS ---
Date of service: 12/18/23 Time of Service: 09:50 Assessment and Plan Assessment and plan (1) Acute electrocardiogram changes: Status: Acute Assessment and plan: - While patient was being evaluated for epigastric and back pain large portion of workup was negative -However, patient did have EKG changes over a few hours that were significant enough to prompt admission under observation status -Follow-up telemetry -Echocardiogram ordered, will follow-up results (2) Gastroenteritis: Status: Acute Assessment and plan: - Given mild inflammatory findings on CT chest abdomen pelvis, patient's nausea, vomiting and overall improved symptoms likely due to viral gastroenteritis -Appears to be resolved at this time -Will offer patient antiemetics if nausea/vomiting recur (3) HTN (hypertension): Status: Chronic Assessment and plan: Continue home lisinopril/HCTZ History of Present Illness History of Present Illness Chief Complaint: chest, abdominal pain Narrative: 63-year-old female with past medical history of hypertension presenting the emergency department complaints of epigastric pain other been radiating to her back. Patient states that her symptoms began the night prior to presentation and that they have been constant throughout the day, though it waxes and wanes in severity. She said it feels somewhat similar to when she previously had kidney stones but that the location is different. She also states that few days ago she had some left shoulder pain as well as associated epigastric burning that feels like heartburn and was associated with 2 episodes of emesis that resulted in improvement of the epigastric burning. She denies any fever, lightheadedness, dizziness, chills, diarrhea or constipation. In the emergency department patient was noted as having normal vital signs, normal CBC and CMP. She had 3 negative troponins, but she did have an EKG which initially showed some mild less than [address] depressions in V5 and V6 but subsequent EKG showed flattening of T waves. Additionally, patient had CT abdomen and pelvis to rule out aortic dissection but did show some possible signs of gastritis and a questionable pericardial thickening. Given patient's EKG changes and questionable pericardial thickening on CT, emergency room physician paged hospitalist for patient to be admitted under observation status for telemetry and echocardiogram. Review of Systems All systems reviewed & are unremarkable except as noted in HPI and below PFSH All Active Problems (Updated 12/18/23 @ 09:56 by Paulino Camacho MD) HTN (hypertension) (Chronic) Gastroenteritis (Acute) Acute electrocardiogram changes (Acute) Kidney stone on right side (Acute) Hepatic cyst (Acute) S/P colonoscopy (Acute ~02/22/19) 2009- Encounter for screening colonoscopy (Acute) Medical History Hypertension Surgical History History of partial hysterectomy H/O section Hx of cholecystectomy History of colonoscopy Family History Other COPD (chronic obstructive pulmonary disease) Diabetes Heart disease Social History Smoking/Tobacco Use Status: Former Tobacco Use Smoking risk assessment performed?: Yes Alcohol Intake: current Alcohol Intake frequency: a few times a month Alcohol type: wine Drug use: Never Substance use type: does not use Do you feel safe at home: Yes Do you feel safe in your relationship?: Yes Meds Allergies and Home Medications Allergies Allergy/AdvReac Type Severity Reaction Status Date / Time amoxicillin Allergy Severe Swelling/Ed Verified 12/18/23 04:56 jorge Cephalosporins Allergy Severe unknown Verified 12/18/23 04:56 Penicillins Allergy Mild unknown Verified 12/18/23 04:56 Home Medications Medication Instructions Recorded Confirmed Type [id number] 2 tab PO DAILY 12/14/18 09/18/20 History 750 mg-100 mg-125 mg-1.65 mg tablet (Glucosamine Chondroit Complx Advan) lisinopril 10 1 tab PO DAILY 12/14/18 12/18/23 History mg-hydrochlorothiazide 12.5 mg tablet antiarthritic combination no.2 900 500 mg PO 01/25/19 01/25/19 History mg tablet (glucosamine-chondroitin) liraglutide 0.6 mg/0.1 mL (18 mg/3 1.2 mg subcut DAILY 12/18/23 12/18/23 History mL) subcutaneous pen injector (Victoza 2-Vijay) Exam Narrative Exam Narrative: Well-appearing female laying in bed in no acute distress, ANO x 4, heart regular rhythm, lungs clear to auscultation bilaterally, abdomen soft, nontender, nondistended Results Labs 12/18/23 04:50 12/18/23 04:50 Labs: Laboratory Results - last 24 hr 12/18/23 12/18/23 04:50 08:10 WBC 10.54 RBC 5.01 Hgb 15.3 Hct 44.8 MCV 89 MCH 30.5 MCHC 34.2 RDW 13.1 Plt Count 342 MPV 9.3 Immature Gran % 0.3 Neutrophils % 84.2 Lymphocytes % 10.1 Monocytes % 4.3 Eosinophils % 0.5 Basophils % 0.6 Nucleated RBC % 0.0 Absolute Neutrophils 8.89 H Absolute Lymphocytes 1.06 L Absolute Monocytes 0.45 Absolute Eosinophils 0.05 Absolute Basophils 0.06 PT 9.9 INR 1.0 Sodium 143 Potassium 3.3 L Chloride 103 Carbon Dioxide 31.2 Anion Gap 8.8 BUN 19 H Creatinine 0.8 Est GFR (CKD-EPI 2020) 81.72 Glucose 127 H Calcium 9.5 Magnesium 2.1 Total Bilirubin 0.4 AST 15 ALT 21 Alkaline Phosphatase 94 Troponin I < 50 < 50 Total Protein 7.9 Albumin 4.1 Lipase 43 Last Vital Signs Temp 97.5 F L 12/18/23 04:50 Pulse 71 12/18/23 06:31 Resp 17 12/18/23 06:31 BP 148/74 H 12/18/23 06:31 Pulse Ox 98 12/18/23 06:31 Time Spent Time spent with Patient: >75 minutes Time was spent: preparing to see the patient(eg.review tests), obtaining and/or reviewing separately otained hiistory, ordering medications,tests, procedures, referring, communicating with other health acute care certified nursing assistant, indepentently interpreting results, counseling the patient and care coordination
[2023-12-18] MEDS: Acetaminophen 325 MG TAB PO ×2 (17:38→23:09)
[2023-12-18] MEDS: Calcium Carbonate *TUMS* 500 MG CHEW 1000 MG PO ×2 (17:43→21:11)
[2023-12-18] MEDS: Normal Saline Flush 10 ML SYR IVP (21:12)
[2023-12-19 01:07] VITALS: PULSE 65
[2023-12-19 02:54] VITALS: BP 134/54; PULSE 74; RESP 18; TEMP 37.1; O2SAT 95
[2023-12-19] MEDS: Calcium Carbonate *TUMS* 500 MG CHEW 1000 MG PO (02:54)
[2023-12-19 06:41] VITALS: BP 128/71; PULSE 82; RESP 16; TEMP 36.6; O2SAT 96
[2023-12-19 06:52] LABS: HCT 40.7 % (36.0-46.0); HGB 13.7 g/dL (11.2-15.7); MCH 30.2 pg (27.0-33.0); MCHC 33.7 % (32.0-36.0); MCV 90 fL (80-95); MPV 9.6 fL (8.0-11.0); Platelet Count 281 10^3/uL (130-400); RBC 4.53 10^6/uL (3.93-5.22); RDW 13.2 % (11.7-14.6); RDW-SD 43.4 fL; WBC 6.35 10^3/uL (4.4-10.8)
--- NOTE | 2023-12-19 07:00 | RT.EKG_ITS ---
APPROVED REPORT Exam: Resting ECG Reason for Exam: f/u on changes seen in ED Patient Location: I HR:73 bpm ECG Measurements Heart Rate 73 AXIS AL 153 P -16 QRSd 83 QRS 2 QT 384 T 41 QTc 424 Conclusion Sinus rhythm...normal P axis, V-rate 50- 99 Normal Electrocardiogram
[2023-12-19 07:03] LABS: Anion Gap 11.3 mmol/L (3-11); BUN 16 mg/dL (7-18); CO2 28.7 mmol/L (21.0-32.0); CREATININE 0.9 mg/dL (0.55-1.02); Chloride 104 mmol/L (98-107); Estimated GFR 70.95 (mL/min/1.73m2); Glucose 179 mg/dL (74-106); Magnesium 1.8 mg/dL (1.8-2.4); Potassium 3.3 mmol/L (3.5-5.1); Sodium 144 mmol/L (136-145)
[2023-12-19] MEDS: hydroCHLOROthiazide 12.5 MG TAB PO (08:13)
[2023-12-19] MEDS: Lisinopril 10 MG TAB PO (08:13)
[2023-12-19] MEDS: Normal Saline Flush 10 ML SYR IVP (08:13)
--- NOTE | 2023-12-19 09:06 | W.PM.DS.N ---
Date of service: 12/19/23 Time of Service: 09:19 DS: Diagnosis Discharge Diagnosis (1) Acute electrocardiogram changes: Status: Acute Asessment and Plan: Patient initially presented to the ED with signs and symptoms that were ultimately determined to likely be due to viral gastritis. However, while patient was being evaluated in the emergency department despite having 3 negative troponins that she had EKG changes that included flattening of T waves that prompted patient to be admitted to observation status. She had an echocardiogram which was without any acute findings and repeat EKGs were unremarkable. Ultimately, it was determined that the patient was stable for discharge home. (2) Gastroenteritis: Status: Acute (3) HTN (hypertension): Status: Chronic Asessment and Plan: -continue home regimen Discharge Plan Disposition Patient Disposition: Home Condition: Good Discharge Details Reason For Visit: EKG changes Admit Date/Time: 12/18/23 08:54 Admit Provider: Paulino Camacho Attending Provider: Paulino Camacho Primary Care Provider: Jewel Figueroa Hospital Course Hospital Course: Patient initially presented to the ED with signs and symptoms that were ultimately determined to likely be due to viral gastritis. However, while patient was being evaluated in the emergency department despite having 3 negative troponins that she had EKG changes that included flattening of T waves that prompted patient to be admitted to observation status. She had an echocardiogram which was without any acute findings and repeat EKGs were unremarkable. Ultimately, it was determined that the patient was stable for discharge home. Home Meds and New Rx's Prescriptions: New pantoprazole [Protonix] 40 mg tablet,delayed release (DR/EC) 40 mg PO DAILY Qty: 90 0RF Continued glucosamine-chondroitin 900 mg tablet 500 mg PO DAILY lisinopril-hydrochlorothiazide 10-12.5 mg tablet 1 tab PO DAILY Glucos Chond Cplx Advanced 750 mg-100 mg- 125 mg-1.65 mg tablet 2 tab PO DAILY Victoza 2-Vijay 0.6 mg/0.1 mL (18 mg/3 mL) pen injector 1.2 mg subcut DAILY furosemide [Lasix] 20 mg tablet 20 mg PO DAILY Patient Comments: PRN for foot swelling, has never taken Discharge Instructions Stand Alone Forms: Nursing Discharge Form Referrals: Jewel Figueroa PA [Primary Care Provider] - 12/31/23 5:00 pm (keep your same appointment you had before! ) Activity:: Activity as Tolerated Equipment/Supplies:: No Equipment Needed Diet:: As Tolerated Discharge Orders Discharge Orders: Discharge Order (Routine); Ordered 12/19/23 Ordered By: Paulino Camacho DS: Summary Time Spent with Patient providing and/or coordinating discharge services: Greater than 30 minutes Status at Discharge Functional status at discharge: independent ambulation Overall status at discharge: patient is back to baseline Mental Status: mental status grossly normal Speech and Movement: speech and movement normal Mood: congruent mood Affect: normal affect Quality:SDOH Health Related Social Needs: No Data to Display Exam Narrative Exam Narrative: Well-appearing female laying in bed in no acute distress, ANO x 4, heart regular rhythm, lungs clear to auscultation bilaterally, abdomen soft, nontender, nondistended Psych Mental Status: mental status grossly normal Speech and Movement: speech and movement normal Mood: congruent mood Affect: normal affect DS: Data Vitals/I&O Vitals and I&O: Vital Signs Temperature 97.9 F 12/19/23 06:41 Temperature Source Tympanic 12/19/23 06:41 Pulse 82 12/19/23 06:41 Pulse Rhythm Regular 12/18/23 21:00 Pulse 72 12/18/23 06:31 Respiratory Rate 16 12/19/23 06:41 Respiratory Effort Normal 12/18/23 21:00 Respiratory Depth Normal 12/18/23 21:00 Respiratory Pattern Normal 12/18/23 21:00 Blood Pressure 128/71 12/19/23 06:41 Blood Pressure Mean 98 12/18/23 06:31 Blood Pressure Position Sitting 12/18/23 09:32 Pulse Oximetry 96 12/19/23 06:41 Oxygen Delivery Method Room Air 12/19/23 06:41 Oxygen Flow Rate 0 12/19/23 06:41 Pain Level 8 12/19/23 02:54 Comment lying on right side 12/19/23 02:54 Intake & Output 12/18/23 12/19/23 12/19/23 17:59 05:59 17:59 Intake Total 240 / 240 Output Total 450 / 450 Balance -210 / -210 Weight 155 lb 11.464 oz Intake: Oral 240 / 240 Output: Urine 450 / 450 Other: Urine Color Yellow Urine Appearance Clear Urine Odor Normal Voiding Methods Toilet Data Completed and Pending Labs on day of discharge: Labs from last 24 hours 12/19/23 06:08 WBC 6.35 RBC 4.53 Hgb 13.7 Hct 40.7 MCV 90 MCH 30.2 MCHC 33.7 RDW 13.2 Plt Count 281 MPV 9.6 Sodium 144 Potassium 3.3 L Chloride 104 Carbon Dioxide 28.7 Anion Gap 11.3 H BUN 16 Creatinine 0.9 Est GFR (CKD-EPI 2020) 70.95 Glucose 179 H Calcium 9.0 Magnesium 1.8 PFSH All Active Problems (Updated 12/18/23 @ 09:56 by Paulino Camacho MD) HTN (hypertension) (Chronic) Gastroenteritis (Acute) Acute electrocardiogram changes (Acute) Kidney stone on right side (Acute) Hepatic cyst (Acute) S/P colonoscopy (Acute ~02/22/19) 2008- Encounter for screening colonoscopy (Acute) Medical History Hypertension Surgical History History of partial hysterectomy H/O section Hx of cholecystectomy History of colonoscopy Family History Other COPD (chronic obstructive pulmonary disease) Diabetes Heart disease Social History Smoking/Tobacco Use Status: Former Tobacco Use Smoking risk assessment performed?: Yes Alcohol Intake: current Alcohol Intake frequency: a few times a month Alcohol type: wine Drug use: Never Substance use type: does not use Housing: house Do you feel safe at home: Yes Do you feel safe in your relationship?: Yes Time Spent with Patient Time Spent with Patient: <45 minutes Time was spent: preparing to see the patient(eg.review tests), obtaining and/or reviewing separately otained hiistory, ordering medications,tests, procedures, referring, communicating with other health healthcare administrative assistant, indepentently interpreting results, counseling the patient and care coordination
--- NOTE | 2023-12-19 13:35 | PDOC.CMPRO ---
Date of service: 12/19/23 Time of Service: 13:35 Care Management Progress Note Progress Note Text Progress Note Text: Colleen was admitted on 12/18/23 with EKG changes. Her troponins were negative and a repeat EKG and ECHO did not indicate an acute coronary process. Colleen was determined to be safe for discharge with no new services needed. She will follow up with her community providers and plan of care and transport with friend/family. SDOH(Care Management) Screening Will the Patient Participate in the Screening?: Declined to provide
== END 2023-12-19 10:26 | disposition home or self-care (01) ==
LOC: ER 08:53 → MS 09:30
PROVIDERS: Emergency Medicine; Admitting Provider Family Medicine; Emergency Provider Student in an Organized Health Care Education/Training Program; PCP Physician Assistant Medical; Visit Provider Family Medicine
DX: R94.31 Abnormal electrocardiogram [ECG] [EKG] (principal); A08.4 Viral intestinal infection, unspecified; N20.0 Calculus of kidney; R10.13 Epigastric pain; R73.03 Prediabetes; I10 Essential (primary) hypertension; Z79.899 Other long term (current) drug therapy; R11.10 Vomiting, unspecified; Z87.442 Personal history of urinary calculi; Z87.891 Personal history of nicotine dependence
CPT/HCPCS: 00123; 36415; 71275; 80048; 80053; 83690; 85027; 93005; 96374; 96375; 99285; 74174; 83735; 84484; 85025; 85610; 93010; 93306; 99223; 99238; G0378; J2270; J2405; J3490

== ENCOUNTER 2024-05-20 18:16 | Outpatient (REF) | payer MEDICARE, SELFPAY ==
--- OUTSIDE RECORDS SUMMARY | 2024-05-20 18:19 | XMS_ITS | Data Portability ---
Author Organization MD - [facility] Address [address] [place] [address] Care Team Providers Care Police Lieutenant Name Role Phone [facility] Dentist Assessment Encounter Date Assessment Date Assessment LastModified by Organization Details LastModified Time 05/20/2024 05/20/2024 Patient presents with symptoms of UTI. Results of dipstick were positive for UTI. Advised to drink clear fluids, Tylenol for pain and take prescribed medications as instructed. Patient encouraged to follow up within 1 week if not improving. Not available 05/20/2024 15:54:13 Plan of Treatment Reminders Order Date Submit Date Provider Last Modified By Organization Details Last Modified Time Details Appointments Acute 30 2023 03:30P M Not available Not available Not available Lab hemogl obin A1C, finger stick 2023 024 [email or web address] [facility], [address] [place], [address], 12/31/2023 18:46:52 urinal ysis, dipsti ck 2023 024 [facility], [address] [place], [address], 05/20/2024 17:08:48 cultur e, urine + sensit ivity 2023 024 [facility] (Registration ), [address] [place] [address] [place], [address], 05/20/2024 17:08:48 Referral None record ed. Procedures None record ed. Surgeries None record ed. Imaging None record ed. Medication Orders Victoz a 3-Vijay 0.6 mg/0.1 mL (18 mg/3 mL) subcut aneous pen inject or 2023 024 [facility], [address] [facility], [facility] [address], [place], [address], 11/19/2023 17:25:54 nitrof uranto in monohy drate/ macroc rystal s 100 mg capsul e 2023 024 [facility], [address] [place], [address], 05/20/2024 16:31:05 Patient TargetsNo targets recorded. Patient InstructionsNo instructions recorded. Reason for Referral None Reported. Results Created Date Observation Date Name Description Value Unit Range Abnormal Flag Note LastModifiedBy Organization Detail LastModifiedTime 12/18/19 24 12/18/2023 COMPL ETE BLOOD COUNT W/DIF F WBC 10.54 10_3/ uL 4.4-10 .8 normal Not Available [address] [facility] [place], [address] 12/19/2023 10:20:14 12/18/19 24 12/18/2023 COMPL ETE BLOOD COUNT W/DIF F RBC 5.01 10_6/ uL 3.93-5 .22 normal Not Available [address] [place], [address] 12/19/2023 10:20:14 12/18/19 24 12/18/2023 COMPL ETE BLOOD COUNT W/DIF F HGB 15.3 g/dL 11.2-1 5.7 normal Not Available [address] [place], [address] 12/19/2023 10:20:14 12/18/19 24 12/18/2023 COMPL ETE BLOOD COUNT W/DIF F HCT 44.8 % 36.0-4 6.0 normal Not Available [address] [place], [address] 12/19/2023 10:20:14 12/18/19 24 12/18/2023 COMPL ETE BLOOD COUNT W/DIF F MCV 89 fL 80-95 normal Not Available [address] [place], [address] 12/19/2023 10:20:14 12/18/19 24 12/18/2023 COMPL ETE BLOOD COUNT W/DIF F MCH 30.5 pg 27.0-3 3.0 normal Not Available [address] [place], [address] 12/19/2023 10:20:14 12/18/19 24 12/18/2023 COMPL ETE BLOOD COUNT W/DIF F MCHC 34.2 % 32.0-3 6.0 normal Not Available [address] [place], [address] 12/19/2023 10:20:14 12/18/19 24 12/18/2023 COMPL ETE BLOOD COUNT W/DIF F RDW 13.1 % 11.7-1 4.6 normal Not Available [address] [place], [address] 12/19/2023 10:20:14 12/18/19 24 12/18/2023 COMPL ETE BLOOD COUNT W/DIF F platelet count 342 10_3/ uL 130-40 0 normal Not Available [address] [place], [address] 12/19/2023 10:20:14 12/18/19 24 12/18/2023 COMPL ETE BLOOD COUNT W/DIF F MPV 9.3 fL 8.0-11 .0 normal Not Available [address] [place], [address] 12/19/2023 10:20:14 12/18/19 24 12/18/2023 COMPL ETE BLOOD COUNT W/DIF F neutrophils % 84.2 Not Available [address], [address] 12/19/2023 10:20:14 12/18/19 24 12/18/2023 COMPL ETE BLOOD COUNT W/DIF F lymphocytes % 10.1 Not Available [address] [place], [address] 12/19/2023 10:20:14 12/18/19 24 12/18/2023 COMPL ETE BLOOD COUNT W/DIF F monocytes % 4.3 Not Available [address] [place], [address] 12/19/2023 10:20:14 12/18/19 24 12/18/2023 COMPL ETE BLOOD COUNT W/DIF F eosinophils % 0.5 Not Available [address] [place], [address] 12/19/2023 10:20:14 12/18/19 24 12/18/2023 COMPL ETE BLOOD COUNT W/DIF F basophils % 0.6 Not Available [address] [place], [address] 12/19/2023 10:20:14 12/18/19 24 12/18/2023 COMPL ETE BLOOD COUNT W/DIF F immature grans % 0.3 Not Available [address] [place], [address] 12/19/2023 10:20:14 12/18/19 24 12/18/2023 COMPL ETE BLOOD COUNT W/DIF F nucleated RBC 0.0 % 0.0-0. 3 normal Not Available [address] [place], [address] 12/19/2023 10:20:14 12/18/19 24 12/18/2023 COMPL ETE BLOOD COUNT W/DIF F absolute neutrophil count 8.89 10_3/ uL 1.2-6. 7 high Not Available [address] [place], [address] 12/19/2023 10:20:14 12/18/19 24 12/18/2023 COMPL ETE BLOOD COUNT W/DIF F absolute lymphocyte count 1.06 10_3/ uL 1.2-3. 4 low Not Available [address] [place], [address] 12/19/2023 10:20:14 12/18/19 24 12/18/2023 COMPL ETE BLOOD COUNT W/DIF F absolute monocyte count 0.45 10_3/ uL 0.1-0. 8 normal Not Available [address] [place], [address] 12/19/2023 10:20:14 12/18/19 24 12/18/2023 COMPL ETE BLOOD COUNT W/DIF F absolute eosinophil count 0.05 10_3/ uL 0.0-0. 7 normal Not Available [address] [place], [address] 12/19/2023 10:20:14 12/18/19 24 12/18/2023 COMPL ETE BLOOD COUNT W/DIF F absolute basophil count 0.06 10_3/ uL 0.0-0. 2 normal Not Available [address] [place], [address] 12/19/2023 10:20:14 12/18/19 24 12/18/2023 PROTH ROMBI N TIME prothrombin time 9.9 sec 9.1-11 .1 normal Not Available [address] [place], [address] 12/19/2023 10:20:15 12/18/19 24 12/18/2023 PROTH ROMBI N TIME INR 1.0 0.9-1. 1 normal Recom karol d INR thera peuti c range s for orall y admin ister ed drugs are as follo ws: -Jase dard Inten sity 2.0 to 3.0 -High er Inten sity 3.0 to 4.5 Not Available [address] [place], [address] 12/19/2023 10:20:15 12/18/19 24 12/18/2023 COMPR EHENS HIRO METAB OLIC PANEL calcium 9.5 mg/dL 8.5-10 .1 normal Not Available [address] [place], [address] 12/19/2023 10:20:16 12/18/19 24 12/18/2023 COMPR EHENS HIRO METAB OLIC PANEL glucose 127 mg/dL 74-106 high Not Available Sourav sharif [address] [place], [address] 12/19/2023 10:20:16 12/18/19 24 12/18/2023 COMPR EHENS HIRO METAB OLIC PANEL BUN 19 mg/dL 7-18 high Not Available Sourav sharif [address] [place] [place], [address] 12/19/2023 10:20:16 12/18/19 24 12/18/2023 COMPR EHENS HIRO METAB OLIC PANEL creatinine 0.8 mg/dL 0.55-1 .02 normal Not Available [address] [place], [address] 12/19/2023 10:20:16 12/18/19 24 12/18/2023 COMPR EHENS HIRO METAB OLIC PANEL estimated GFR 81.72 mL/min /1.73m 2 The eGFR is calcu lated from a serum creat inine using the CKD-E PI 2020 equat ion. Other varia bles requi red for the equat ion are gende r and age; this equat ion does not inclu de a race coeff icien t. This equat ion has simil ar overa ll perfo rmanc e to previ ous equat ions excep t value s may diffe r, in parti cular , in patie nts with highe r value s of eGFR and young er-ag ed adult s. Not Available [address] [place], [address] 12/19/2023 10:20:16 12/18/19 24 12/18/2023 COMPR EHENS HIRO METAB OLIC PANEL total protein 7.9 g/dL 6.4-8. 2 normal Not Available [address] [place], [address] 12/19/2023 10:20:16 12/18/19 24 12/18/2023 COMPR EHENS HIRO METAB OLIC PANEL albumin 4.1 g/dL 3.4-5. 0 normal Not Available [address] [place], [address] 12/19/2023 10:20:16 12/18/19 24 12/18/2023 COMPR EHENS HIRO METAB OLIC PANEL bilirubin, total 0.4 mg/dL 0.2-1. 0 normal Not Available [address] [place], [address] 12/19/2023 10:20:16 12/18/19 24 12/18/2023 COMPR EHENS HIRO METAB OLIC PANEL alk phos 94 U/L 46-116 normal Not Available [address] [place], [address] 12/19/2023 10:20:16 12/18/19 24 12/18/2023 COMPR EHENS HIRO METAB OLIC PANEL sodium 143 mmol/ L 136-14 5 normal Not Available [address] [place], [address] 12/19/2023 10:20:16 12/18/19 24 12/18/2023 COMPR EHENS HIRO METAB OLIC PANEL potassium 3.3 mmol/ L 3.5-5. 1 low Not Available [address] [place], [address] 12/19/2023 10:20:16 12/18/19 24 12/18/2023 COMPR EHENS HIRO METAB OLIC PANEL chloride 103 mmol/ L 98-107 normal Not Available [address] [place], [address] 12/19/2023 10:20:16 12/18/19 24 12/18/2023 COMPR EHENS HIRO METAB OLIC PANEL CO2 31.2 mmol/ L 21.0-3 2.0 normal Not Available [address] [place], [address] 12/19/2023 10:20:16 12/18/19 24 12/18/2023 COMPR EHENS HIRO METAB OLIC PANEL anion gap 8.8 mmol/ L 3-11 normal Not Available [address] [place], [address] 12/19/2023 10:20:16 12/18/19 24 12/18/2023 COMPR EHENS HIRO METAB OLIC PANEL AST 15 U/L 15-37 normal Not Available Sourav [address] [place], [address] 12/19/2023 10:20:16 12/18/19 24 12/18/2023 COMPR EHENS HIRO METAB OLIC PANEL ALT 21 U/L 14-59 normal Not Available Sourav sharif [address] [place], [address] 12/19/2023 10:20:16 12/18/19 24 12/18/2023 MAGNE SIUM magnesium 2.1 mg/dL 1.8-2. 4 normal Not Available [address] [place], [address] 12/19/2023 10:20:16 12/18/19 24 12/18/2023 LIPAS E lipase 43 U/L 16-77 normal Not Available Sourav sharif [address] [place], [address] 12/19/2023 10:20:17 12/18/19 24 12/18/2023 TROPO LIVE I troponin I < 50 NG/L < or =60 Not Available [address] [place], [address] 12/19/2023 10:20:17 12/18/19 24 12/18/2023 TROPO LIVE I troponin I < 50 NG/L < or =60 Not Available [address] [place], [address] 12/19/2023 10:21:16 12/19/19 24 12/19/2023 COMPL ETE BLOOD COUNT NO DIFF WBC 6.35 10_3/ uL 4.4-10 .8 normal Not Available [address] [place], [address] 12/19/2023 10:25:57 12/19/19 24 12/19/2023 COMPL ETE BLOOD COUNT NO DIFF RBC 4.53 10_6/ uL 3.93-5 .22 normal Not Available [address] [place], [address] 12/19/2023 10:25:57 12/19/19 24 12/19/2023 COMPL ETE BLOOD COUNT NO DIFF HGB 13.7 g/dL 11.2-1 5.7 normal Not Available [address] [place], [address] 12/19/2023 10:25:57 12/19/19 24 12/19/2023 COMPL ETE BLOOD COUNT NO DIFF HCT 40.7 % 36.0-4 6.0 normal Not Available [address] [place], [address] 12/19/2023 10:25:57 12/19/19 24 12/19/2023 COMPL ETE BLOOD COUNT NO DIFF MCV 90 fL 80-95 normal Not Available [address] [place], [address] 12/19/2023 10:25:57 12/19/19 24 12/19/2023 COMPL ETE BLOOD COUNT NO DIFF MCH 30.2 pg 27.0-3 3.0 normal Not Available [address] [place], [address] 12/19/2023 10:25:57 12/19/19 24 12/19/2023 COMPL ETE BLOOD COUNT NO DIFF MCHC 33.7 % 32.0-3 6.0 normal Not Available [address] [place], [address] 12/19/2023 10:25:57 12/19/19 24 12/19/2023 COMPL ETE BLOOD COUNT NO DIFF RDW 13.2 % 11.7-1 4.6 normal Not Available [address] [place], [address] 12/19/2023 10:25:57 12/19/19 24 12/19/2023 COMPL ETE BLOOD COUNT NO DIFF platelet count 281 10_3/ uL 130-40 0 normal Not Available [address] [place], [address] 12/19/2023 10:25:57 12/19/19 24 12/19/2023 COMPL ETE BLOOD COUNT NO DIFF MPV 9.6 fL 8.0-11 .0 normal Not Available [address] [place], [address] 12/19/2023 10:25:57 12/19/19 24 12/19/2023 LASIC METAB OLIC PANEL calcium 9.0 mg/dL 8.5-10 .1 normal Not Available [address] [place], [address] 12/19/2023 10:25:58 12/19/19 24 12/19/2023 LASIC METAB OLIC PANEL glucose 179 mg/dL 74-106 high Not Available Sourav sharif [address] [place], [address] 12/19/2023 10:25:58 12/19/19 24 12/19/2023 LASIC METAB OLIC PANEL BUN 16 mg/dL 7-18 normal Not Available Sourav sharif [address] [place], [address] 12/19/2023 10:25:58 12/19/19 24 12/19/2023 LASIC METAB OLIC PANEL creatinine 0.9 mg/dL 0.55-1 .02 normal Not Available [address] [place], [address] 12/19/2023 10:25:58 12/19/19 24 12/19/2023 LASIC METAB OLIC PANEL estimated GFR 70.95 mL/min /1.73m 2 The eGFR is calcu lated from a serum creat inine using the CKD-E PI 2020 equat ion. Other varia bles requi red for the equat ion are gende r and age; this equat ion does not inclu de a race coeff icien t. This equat ion has simil ar overa ll perfo rmanc e to previ ous equat ions excep t value s may diffe r, in parti cular , in patie nts with highe r value s of eGFR and young er-ag ed adult s. Not Available [address] [place], [address] 12/19/2023 10:25:58 12/19/19 24 12/19/2023 LASIC METAB OLIC PANEL sodium 144 mmol/ L 136-14 5 normal Not Available [address] [place], [address] 12/19/2023 10:25:58 12/19/19 24 12/19/2023 LASIC METAB OLIC PANEL potassium 3.3 mmol/ L 3.5-5. 1 low Not Available [address] [place], [address] 12/19/2023 10:25:58 12/19/19 24 12/19/2023 LASIC METAB OLIC PANEL chloride 104 mmol/ L 98-107 normal Not Available [address] [place], [address] 12/19/2023 10:25:58 12/19/19 24 12/19/2023 LASIC METAB OLIC PANEL CO2 28.7 mmol/ L 21.0-3 2.0 normal Not Available [address] [place], [address] 12/19/2023 10:25:58 12/19/19 24 12/19/2023 LASIC METAB OLIC PANEL anion gap 11.3 mmol/ L 3-11 high Not Available [address] [place], [address] 12/19/2023 10:25:58 12/19/19 24 12/19/2023 MAGNE SIUM magnesium 1.8 mg/dL 1.8-2. 4 normal Not Available [address] [place], [address] 12/19/2023 10:25:59 12/31/19 24 12/31/2023 hemog lobin A1C, finge rstic k hemoglobin A1C 5.4 % <5.7 Not Available [facility] [address] [place], [address], 12/31/2023 12:22:50 05/20/20 24 05/20/2024 urina lysis , dipst ick Leukocytes Large Not Available [facility] [address] [place], [address], 05/20/2024 15:45:23 05/20/20 24 05/20/2024 urina lysis , dipst ick Nitrite positi ve Not Available [facility] [address] [place], [address], 05/20/2024 15:45:23 05/20/20 24 05/20/2024 urina lysis , dipst ick Urobilinogen .2 Not Available [address], [address], 05/20/2024 15:45:23 05/20/20 24 05/20/2024 urina lysis , dipst ick Protein Trace Not Available [address], [address], 05/20/2024 15:45:23 05/20/20 24 05/20/2024 urina lysis , dipst ick pH 6.0 Not Available [address], [address], 05/20/2024 15:45:23 05/20/20 24 05/20/2024 urina lysis , dipst ick Blood Large Not Available [address], [address], 05/20/2024 15:45:23 05/20/20 24 05/20/2024 urina lysis , dipst ick Specific [place] 1.010 Not Available [address], [address], 05/20/2024 15:45:23 05/20/20 24 05/20/2024 urina lysis , dipst ick Ketone Negati ve Not Available [address], [address], 05/20/2024 15:45:23 05/20/20 24 05/20/2024 urina lysis , dipst ick Bilirubin Negati ve Not Available [address], [address], 05/20/2024 15:45:23 05/20/20 24 05/20/2024 urina lysis , dipst ick Glucose Negati ve Not Available [facility] [address] [place], [address], 05/20/2024 15:45:23 05/20/20 24 05/20/2024 urina lysis , dipst ick Appearance Cloudy Not Available [facility] [address] [place], [address], 05/20/2024 15:45:23 05/20/20 24 05/20/2024 urina lysis , dipst ick Color Yellow Not Available [facility] [address] [place], [address], 05/20/2024 15:45:23 12/19/19 24 12/18/2023 vrad repor t Steve t Name: Colleen Le Unit #: [id number] Loc: ER Orderi ng Provid er: Shawn t #: [id number] Status : REG ER Primar y Care Provid er: Jorge sharif,Sowmya EVERETT Date of Exa m: Sex: F : 1959 Age: 63 Exam(s ) PROCED URE INFORM ATION: Exam: CTA Chest With Contra st CTA Abdome n and Pelvis With Contra st Exam date and time: 12/18/19 5:27 AM Age: 63 years old Clinic al indica tion: Other: Upper back and anteri or chest pain; Additi onal info: Eval aorta TECHNI QUE: Imagin g protoc ol: Comput ed tomogr aphic angiog fina of the chest with contra st. Exam focuse d on the arteri es. Comput ed tomogr aphic angiog fina of the abdome n and pelvis with contra st. Exam focuse d on the arteri es. 3D render ing (Not superv ised by radiol ogist) : MIP and/or 3D recons tructe d images were create d by the techno logist . Contra st materi al: OMNI 350; Contra st volume : 100 ml; Contra st route: INTRAV ENOUS (IV); COMPAR EZEKIEL: CT ABDOME N PELVIS W 09/18/19 6:57 PM FINDIN GS: Vascul ar: Thorac ic aorta and abdomi nal aorta have normal calibe r withou t flow-l imitin g stenos is or dissec tion. Very mild athero sclero tic calcif icatio ns of the aortic arch. Mild aortoi liac athero sclero tic calcif icatio ns. No signif icant stenos is at the origin of the celiac artery , SMA, or ANGEL. Calcif icatio n involv es proxim al renal arteri es withou t defini te flow limiti ng stenos is. Mild iliac artery athero sclero sis withou t signif icant stenos is of bilate ral common , internal audit manager al, or plumbing engineering draftsperson al iliac arteri es. No apprec iable weiner ry artery calcif icatio ns are identi fied on this non gated exam. Chest: Exam not tailor ed specif ically for assess ment of pulmon shaun arteri es but no large or centra l pulmon shaun embolu s is detect ed. No medias tinal adenop athy. A few border line promin ent axilla ry nodes, nonspe cific. There are no pleura l or perica rdial effusi ons. No focal pulmon shaun consol idatio n or suspic ious pulmon shaun mass. Minima l stencil machine operator ior depend ent atelec tasis or subple ural fibros is. No acute osseou s abnorm ality detect ed. Abdome n/pelv is: A few small hepati c cysts are presen t. No obviou s acute abnorm ality of the liver, spleen , pancre as, adrena l glands , or kidney s is identi fied. Puncta te nonobs tructi ng stone in the lower pole of the right kidney . No hydron ephros is involv ing either kidney . The gallbl adder is surgic ally absent . Common bile duct is dilate d, but withou t signif icant change since 2020. The append ix is unrema rkable . Images throug h the pelvis demons trate no eviden ce of bowel obstru ction or obviou s acute pelvic abnorm ality. Prior hyster ectomy . No acute osseou s abnorm ality detect ed. IMPRES NERI: 1. No eviden ce of aortic dissec tion or aneury sm. 2. No obviou s acute abnorm ality detect ed within the chest, abdome n, or pelvis . Variou s incide ntal and nonacu te findin gs as report ed above. Dictat ed and Authen ticate d by: Winston Salmon MD. Orderi ng:P.Elda Fitzpatrick MD Access ion#=[id number] Ordere d By: CC: ------ ------ ------ ------ ------ ------ ------ ------ ------ ------ ------ ------ ---- Dictat ed By: Report s vrad [id number] Transc ribed By: Di Merge [id number] This is privil eged, confid ential inform ation intend ed only for the provid er named. Any use or distri bution by any person other than this provid er is strict ly prohib ited. If you receiv e this report in error, please notify us immedi ately at and return the origin al report to us at the addres s above. Thank- you. [email or web address] [facility] [address] [place], [address] 12/19/2023 10:51:00 12/19/19 24 12/18/2023 CT imagi ng repor t Patien t Name: Colleen Le Unit #: [id number] Loc: ER Orderi ng Provid er: Mayra Chavez i, M.D. Accoun t #: [id number] Status : REG ER Primar y Care Provid er: Jorge sharif,Sowmya EVERETT Date of Exa m: Sex: F : 1959 Age: 63 Exam(s ) a CT:CT thorax abd/pe l CTA Exam(s ) CT THORAX ABD/PE L CTA EXAM: CT THORAX ABD/PE L CTA CLINIC AL HISTOR Y: eval aorta. TECHNI QUE: Imagin g Protoc ol: Axial comput ed tomogr aphy images with weiner l and sagitt al reform atted images were create d and review ed CONTRA ST MATERI AL: Intrav enous: Omnipa que [address] volume :100 ml Oral: None COMPAR EZEKIEL: CT CT ABDOME N PELVIS W from 2020 FINDIN GS: CHEST: AORTA: The diamet er of the ascend ing thorac ic aorta is within normal limits . There is no eviden ce of aortic dissec tion. Only mild athero sclero tic change s. Diamet er of the arch and descen ding t horaci c aorta are within normal limits and there is no eviden ce of abdomi nal aortic aneury sm nor dissec tion. The celiac and superi or mesent kiran arteri es are patent . There is calcif icatio n- calcif ied plaque at the origin of the right renal artery . Inferi or mesent kiran artery is patent . Aortic bifurc ation is unrema rkable . There is some calcif ied plaque on the medial wall the left common iliac artery but withou t signif icant stenos is and no dissec tion. Right common iliac artery is unrema rkable . Both plumbing engineering draftsperson al iliac arteri es are unrema rkable as are the bilate ral common femora l arteri es. PULMON SHAUN ARTERI ES: There are no intral uminal fillin g defect s to sugges t the presen ce of a acute pulmon shaun emboli . LUNGS: No infilt rates nor pleura l effusi ons. No ominou s pulmon shaun nodule s.. MEDIAS TINUM: There is no hilar nor medias tinal adenop athy. Visual ized thyroi d unrema rkable . CARDIA C: Heart size is normal . There is mild thicke mary of the anteri or perica rdium. Maximu m thickn ess 4 millim eters. ABDOME N: There is no eviden ce of abdomi nal aortic aneury sm nor dissec tion.T here is no aneury smal dilata tion of the common iliac arteri es.The celiac and superi or mesent kiran arteri es are patent . There is no ascite s. LIVER: There are benign -appea ring cysts in the liver, 1 of which has increa sed in size from 2020, previo usly measur ing 1 cm and presen tly measur ing 1.5 cm.. The larges t cyst is locate d inferi mehrdad in the right hepati c lobe and measur es 2.5 cm, unchan ged. Hepati c steato sis is noted. GALLBL ADDER/ BILIAR Y: Gallbl adder is not seen and presum ed to be surgic ally absent . The CBD diamet er is again noted to be enlarg ed, measur ing 1.8 cm proxim ally and 0.8 cm distal ly, but exhibi ting minima l change from the prior study. There are no radiop aque calcul i seen in the lower CBD and no obviou s mass at this level. STOMAC H/SMAL L BOWEL: The gastri c wall appear s thicke keturah-ed ematou s as does the pyloru s and there is an I ileus appear ance of the duoden al C-loop which is fluid- filled and exhibi ts diamet er 3 cm. Distal to the ligame nt of Treitz is small- bowel loops exhibi t normal diamet er but many are fluid- filled and upper normal diamet er. There is no eviden ce of small- bowel obstru ction. No free air. No absces s. Colon is mostly collap sed. Append ix unrema rkable .. PANCRE : No eviden ce of pancre atic mass nor dilata tion of the pancre atic duct. SPLEEN : Spleen is not enlarg ed. There are no intras plenic lesion s. Spleni c and portal veins are patent . ADRENA LS: There are no signif icant adrena l masses . KIDNEY S: There is a small nonobs tructi ve 2 millim eter calcul us in the right kidney . No other calcul i nor hydron ephros is. No solid renal masses .. ABDOMI NAL AORTA: The abdomi nal aorta is not enlarg ed. LYMPH NODES: There is no retrop eriton eal nor para-a ortic adenop athy. No obviou s mesent kiran masses . ABDOMI NAL WALL: No eviden ce of signif icant anteri or abdomi nal wall hernia . PELVIS : LYMPH NODES: There is no intrap elvic nor inguin al adenop athy. GI: No eviden ce of append icitis .There is no signif icant sigmoi d divert icular diseas e. URINAR Y BLADDE R: Partia lly collap sed. Slight ly thicke keturah wall either relate d to cystit is or under disten neri REPROD UCTIVE : Uterus surgic ally absent . No abnorm al adnexa l masses . No free fluid in the pelvis . OSSEOU S: No fractu res. No signif icant osseou s lesion s. IMPRES NERI: 1. No eviden ce of aortic aneury sm nor aortic dissec tion, as per reques t. 2. Slight thicke mary of the anteri or perica rdium which probab ly indica daniel a small perica rdial effusi on. Normal heart size. 3. No eviden ce of acute pulmon shaun emboli . 4. Abnorm al appear ing stomac h and duoden al wall probab ly consis tent with gastri tis/du odenit is. Also multip le fluid filled but nondil ated small bowel loops/ enteri tis patter n. The colon is collap sed. There is no small bowel obstru ction. 5. Previo us cholec ystect eb and hyster ectomy . 6. Solita ry small 2 mm nonobs tructi ve calcul us in the inferi or pole region of the right kidney . First read by Lucina PIERSON Tele diolog y. Final report called by myself to ER physic mary 2023 8:30 a.m. RADIAT ION DOSE DELIVE RED: Total DLP DATA REPOSI TORY: All CT scans at this facili ty are submit sandrita to the Nation al Radiol ogy Data Regist ry (NRDR) Dose Index Regist ry (DIR) with the Americ willard nascimento of Radiol ogy (ACR). RADIAT ION OPTIMI ZATION : All CT scans at this facili ty use at least one of these dose optimi zation techni ques: automa sandrita exposu re contro l; mA and/or kV adjust ment per patien t size (inclu amy target ed exams where dose is matche d to clinic al indica tion); or iterat hiro recons tructi on. 005: Total DLP = 0.00 mGy-cm Ordere d By: Mayra Chavez i, M.D. CC: ------ ------ ------ ------ ------ ------ ------ ------ ------ ------ ------ ------ ---- Dictat ed By: Alejo Serrano M.D. 832 Transc ribed By: Zach HOBBS,Raheel júnior 832 This is privil eged, confid ential inform ation intend ed only for the provid er named. Any use or distri bution by any person other than this provid er is strict ly prohib ited. If you receiv e this report in error, please notify us immedi josély at and return the origin al report to us at the addres s above. Thank- you. [email or web address] [facility] [address], [place], [address] 12/19/2023 10:51:01 12/19/19 24 12/18/2023 ultra sound imagi ng haylie lira Name: Colleen Le Unit #: [id number] Loc: MS Orderi ng Provid er: Marie Camacho M.D. Accoun t #: [id number] Status : ADM [place] Primar y Care Provid er: Jorge sharif,Sowmya EVERETT Date of Exa m: Sex: F Admiss ion Date: : 1959 Age: 63 ------ ------ --- APPROV ED REPORT ------ ------ -- EXAM: Compre hensiv e 2D, Dopple r, and color- flow Echoca rdiogr am Patien t Locati on: In-Pat ient Room/B ed: 206 Sonogr apher: Kendal Zamuda , RDCS (AE) Indica tions: EKG Change s, Perica rdial thicke mary on CT Other Inform ation Study Qualit y: Adequa te Conclu neri Normal left ventri cular wall thickn ess and chambe r size. Ejecti on fracti on is 60%. Wall motion is normal Normal right ventri cular size and functi on Both atria are normal in size There is an atrial septal aneury sm There are no struct ural or hemody namica lly signif icant valvul ar abnorm alitie s Estima sandrita right ventri cular systol ic pressu re is 22 mmHg Wall motion Left Ventri jason The left ventri jason is normal size. The left ventri cular systol ic functi on is normal . The left ventri cular ejecti on fracti on is within the normal range. There is normal left ventri cular wall thickn ess. There is normal LV segmen crista wall motion . There is no ventri cular septal defect visual ized. LVEF is 60%. Right Ventri jason The right ventri jason is normal size. The right ventri cular systol ic functi on is normal . Atria The left atrium size is normal . The right atrium size is normal . Atrial septal aneury sm is presen t. Aortic Valve The aortic valve is normal in struct ure. Aortic valve is trilea flet. There is no aortic valvul ar stenos is. No aortic regurg itatio n is presen t. Mitral Valve The mitral valve is normal in struct ure. No eviden ce of mitral valve stenos is. Trace mitral regurg itatio n. Tricus pid Valve The tricus pid valve is normal in struct ure. There is no tricus pid valve stenos is. Trace tricus pid regurg itatio n. The RVSP is 22.7 mmHg. Pulmon ic Valve The pulmon shaun valve is normal in struct ure. There is no pulmon ic valvul ar stenos is. There is no pulmon ic valvul ar regurg itatio n. Great Vessel s The aortic root is normal in size. The ascend ing aorta is normal . Aortic arch is normal in calibe r. IVC is normal in size and collap ses >50% with inspir ation. Perica rdium There is no perica rdial effusi on. 2D Dimens ions IVSD d PLAX 1.03 cm F: 0.6-1. 0 Ao Root d 2.99 cm F: 2.7 - 3.3 LVPW d PLAX 1.00 cm F: 0.6 - 1.0 Ao Asc Diam d 3.30 cm F: 2.3 - 3.1 LVID d PLAX 4.00 cm F: 3.8 - 5.2 LVDs 2.70 cm F: 2.2 - 3.5 LV EF Teichh olz 60.6 % FS 31.91 % LV EDV (Teich ) 68.3 mL LV ESV (Teich ) 26.9 mL M-Mode TAPSE 1.49 cm (M/F) >1.7 Auto EF LV EDV A4C 71.8 mL LV EDV A2C 81.9 mL LV EDV BP 75.9 mL LV ESV A4C 31.1 mL LV ESV A2C 36.3 mL LV ESV BP 33.6 mL LVEF(% ) A4C 56.7 % LVEF(% ) A2C 55.7 % LVEF(% ) BP 55.7 % LV SV A4C 40.7 ml LV SV A2C 45.6 ml LV SV BP 42.3 ml LV CO A4C 2.8 L/min LV CO A2C 3.2 L/min LV CO BP 3.0 L/min HR A4C 69.10 BPM HR A2C 69.91 BPM LV EDV Index (BP) LA Volume LA Length A4C 4.6 cm LA Length A2C 4.9 cm LA Area A4C s 10.89 cm2 LA Area A2C s 15.48 cm2 LA Vol A4C A-L 22.13 mL LA Vol A2C A-L 41.24 mL LA Vol Biplan e A-L 31.5 mL LA Vol/BS A A4C A-L LA Vol/BS A A2C A-L LA Vol/BS A BP A-L 18.8 mL/m2 LA Vol A4C MOD 20.3 mL LA Vol A2C MOD 38.7 mL LA Vol BP MOD 29.1 mL RA Volume RA Area A4C 7.0 cm2 RA ESV A4C (A-L) 12.3mL RA Vol/BS A A4C A-L RA Length A4C 3.3 cm RA ESV A4C (MOD) 11.6mL LV Diasto logy MV E' medial 0.080 (>0.07 m/s) MV E Vmax 0.70 (0.4-1 .3 m/s) MV E/E' MED 8.73 (<14) MV A Vmax 0.90 (0.4-1 .3 m/s) E/A Ratio 0.8 Aortic Valve AoV Vmax 1.56 m/s LVOT Vmax 1.14 m/s AoV Peak Grad 9.7 mmHg LVOT Peak Grad 5.2 mmHg AoV Area (Vmax) 2.04 cm2 LVOT VTI 0.299 m AoV VTI 0.298 m LVOT Mean Grad 3.2 mmHg AoV Mean Luis. 1.12 m/s LVOT SV 83.23 mL AoV Mean Grad 5.6 mmHg LVOT Diam s 1.85 cm AoV Area (VTI) 2.79 cm2 Veloci ty Ratio 0.73 Mitral Valve MV DT 304 (160-2 40 msec) MV Vmax TIPS 0.95 m/s MV Mean Grad 1.6 (<2mmH g) MV VTI 0.290 m Pulmon shaun Valve PV Vmax 0.87 (0.5-1 .5 m/s) RVOT Vmax 0.65 m/s PV Peak Grad 3.0 mmHg RVOT Peak Gr. 1.7 mmHg PV Mean Luis 0.60 m/s RVOT VTI 0.154 m PV Mean Grad 1.6 mmHg RVOT Mean Gr. 0.8 mmHg Tricus pid Valve RA Pressu re 3.00 mmHg TR Vmax 2.22 m/s TV S' 0.16 m/s TR Peak Grad 19.6 mmHg RVSP (TR) 22.7 mmHg Joss kaufman By: Marie Camacho M.D. CC: ------ ------ ------ ------ ------ ------ ------ ------ ------ ------ ------ ------ - Dictat ed By: Zuleima Llanos M.D. 1226 1237 Transc ribed By: Zuleima Llanos MD 1226 This is privil eged, confid ential inform ation intend ed only for the provid er named. Any use or distri bution by any person other than this provid er is strict ly prohib ited. If you receiv e this report in error, please notify us immedi ately at and return the origin al report to us at the addres s above. Thank- you. [email or web address] [facility] [address], [place], [address] 12/19/2023 10:51:01 Result Notes None recorded. Problems Name Problem SNOMED Code Status Onset Date Resolution Date Notes Provider Name and Address Organization Details Recorded Time Cristhian he 50800446 Active 200602/19/20 23 - Comments only - Jewel Wang PA-C - - HTN Today's BP suggests good control on LISINOPR IL-HCTZ 10-12.5m g QD and PRN LASIX 20mg QD for LE edema. Problem Code: I10; Problem Code Type: ICD-10; Not Available [facility] 3 05:20:36 Obesity 649906269 Active 200202/19/20 23 - Comments only - Jewel Wang PA-C - BMI stable @ 28. After some discussi on, Zuly has opted to continue on OZEMPIC on taper to stretch out current supply (specifi anh 0.25mg QWK x 1m then 0.25mg QOWK). If she finds appetite uncontro llable (+/- begins regainin g weight), will reach out to [facility] to explore other options VICTOZA vs METFORMI N vs. NAC (to address ?compuls hiro eating). Problem Code: E66.9; Problem Code Type: ICD-10; Not Available [facility] 3 05:20:36 General examinat ion of patient Active 201512/27/19 22 - Comments only - Jewel Wang PA-C - Td booster and SHINGRIX #1 administ ered today. Patient agrees to return to [facility] in a few weeks for administ ration of Moderna booster via [facility]. Martin jose order reprinte d to allow for scheduli ng at [facility]. Problem Code: Z00.8; Problem Code Type: ICD-10; Not Available [facility] 3 05:20:36 Prediabe daniel 214856727 Active 201612/31/19 23 - Comments only - Jewel Wang PA-C - Patient commende d on ongoing weight loss efforts. Repeat HBA1C collecte d today as monitori ng on OZEMPIC ?0.5mg QWK Problem Code: R73.03; Problem Code Type: ICD-10; Not Available [facility] 3 05:20:36 Pain of left knee joint 28849310511 4107 Completed 201703/11/2018 03/01/20 18 - Comments only - Jewel Wang PA-C - Patient denies indicati on for more advanced treatmen t interven tions at this time, however, is willing to initiate OTC GLUCOSAM INE/JOURDAN DROINTIN +/- OTC ALEVE. Patient agrees to contact [facility] if sxs should prove progress hiro, at which point we could consider for scheduli ng for x-ray imaging to determin e extent of OA contribu ting to sxs. Problem Code: M25.562; Problem Code Type: ICD-10; Not Available [facility] 3 05:20:36 Acquired absence of cervix and uterus 931269922 Active 2018 Problem Code: Z90.710; Problem Code Type: ICD-10; Not Available [facility] 3 05:20:36 Acute sinusiti s 57524526 Completed 201910/08/2019 09/25/19 20 - Comments only - Jewel Wang PA-C - Suspecte d secondar y process s/p influenz a. Will treat with RXd ZITHROMA X as ZPAK. OK to continue with supporti ve therapie s (OTC deconges tant free cold and cough preparat ions, NSAIDS/T YLENOL) for symptom control. Would expect for progress hiro improvem ent over the course of this upcoming weekend. F/U PRN. Problem Code: J01.90; Problem Code Type: ICD-10; Not Available [facility] 3 05:20:36 Acute bronchit is 56153950 Completed 201910/08/2019 Problem Code: J20.9; Problem Code Type: ICD-10; Not Available [facility] 3 05:20:36 Hypokale heriberto 81360749 Active 202009/20/19 21 - Comments only - Jewel Wang PA-C - Given patient demonstr ated pain resoluti on with ER K and fluid replacem ent, will repeat BMP today as monitori ng and consider for PO K suppleme ntation if indicate d. Colleen will otherwis e d/c from HCTZ 12.5mg QD and continue on LISINOPR IL/HCTZ 10/12.5m g combinat ion alone for BP control. Problem Code: E87.6; Problem Code Type: ICD-10; Not Available [facility] 3 05:20:37 Disorder of skin and/or subcutan eous tissue 71413463 Completed 202004/20/2021 04/06/20 21 - Comments only - Jewel Wang PA-C - After cleansin g the area with alcohol wipe, and paring down overlyin g keratoti c tissue with scalpel, patient was treated with multiple rounds of cryother apy with liquid nitrogen and area was dressed with bandage. Colleen agrees to call if lesion returns, at which point we will arrange for more definati ve excision al BX through ENT vs. dermatol ogy. Problem Code: L98.8; Problem Code Type: ICD-10; Not Available [facility] 3 05:20:37 Nonulcer dyspepsi a 9411620 Active 202112/27/19 22 - Comments only - Jewel Wang PA-C - Patient encourag ed to make efforts to ensure food chewed fully and consider to add OTC PROBIOTI C vs. KEFIR QD to restore digestiv e warner balance. Problem Code: K30; Problem Code Type: ICD-10; Not Available [facility] 3 05:20:37 Fatigue 73046497 Completed 202107/10/2022 Problem Code: R53.83; Problem Code Type: ICD-10; Not Available [facility] 3 05:20:37 Steatosi s of liver 966975438 Active 202102/19/20 23 - Comments only - Jewel Wang PA-C - FIB-4 score calculat ed @ 0.75 on 12/30/22 to suggest low risk for advanced liver fibrosis . Will continue to monitor. Problem Code: K76.0; Problem Code Type: ICD-10; Not Available [facility] 3 05:20:37 Benign lipomato us tumor 716633725 Completed 202201/10/2023 12/31/19 23 - Comments only - Jewel Wang PA-C - Patient reassure d lesion likely reflecti ve of benign lipoma. No indicati on for excision at this point due to minimall y botherso me, however, could consider to schedule for removal with [facility] if this becomes more problema tic in the future. Problem Code: D17.9; Problem Code Type: ICD-10; Not Available [facility] 3 05:20:37 Kidney stone 77459189 Completed 200606/11/2023 Not Available [facility] 3 05:20:37 [place]ushing 975751017 Completed 200206/11/2023 Problem Code: 782.62; Problem Code Type: ICD-9; Not Available [facility] 3 05:20:37 Lumbosac ral neuritis 89061701 Completed 201208/27/2017 Not Available [facility] 3 05:20:37 Insomnia 930018689 Completed 200208/27/2017 Problem Code: G47.00; Problem Code Type: ICD-10; Not Available [facility] 3 05:20:38 Shoulder joint pain 445842448 Completed 201108/27/2017 Problem Code: M25.519; Problem Code Type: ICD-10; Not Available [facility] 3 05:20:38 Hyperten sive disorder 76056580 Completed 200606/11/2023 12/28/19 21 - Comments only - Jewel Wang PA-C - Today's BP suggests fair control on LISINOPR IL-HCTZ 10-12.5m g QD and PRN LASIX 20mg QD. SHERRY MATTHEW [place] [facility]. 4 09:50:52 [facility] hyperten neri 66385089 Completed 200303/29/2015 Problem Code: 401.9; Problem Code Type: ICD-9; Not Available [facility] 3 05:20:38 Mammogra phy abnormal 412648427 Completed 201208/27/2017 Problem Code: 793.80; Problem Code Type: ICD-9; Not Available [facility] 3 05:20:38 Impaired fasting glycemia 694384902 Completed 201606/11/2023 11/23/19 20 - Comments only - Jewel Wang PA-C - Repeat HBA1C collecte d today as chaim ng. Problem Code: R73.01; Problem Code Type: ICD-10; Not Available [facility] 3 05:20:39 Shoulder pain 34146569 Completed 201106/11/2023 Not Available [facility] 3 05:20:39 Hyperten sive disorder 31030900 Active 202312/28/19 21 - Comments only - Jewel Wang PA-C - Today's BP suggests fair control on LISINOPR IL-HCTZ 10-12.5m g QD and PRN LASIX 20mg QD. SHERRY MATTHEW [place] [facility]. 4 09:50:51 Problem Notes None recorded. Procedures Surgical History None recorded. Imaging Results Imaging Date Name Status LastModified by Organiz ation Details LastModified Time 12/18/2023 vrad report completed [email or web address] [facility] [address] [place], [address] 12/19/2023 10:51:00 12/18/2023 CT imaging report completed [facility] [place] [id number] [place], [address] 12/19/2023 10:51:01 12/18/2023 ultrasound imaging report completed [facility] [place] [id number] [place], [address] 12/19/2023 10:51:01 Procedure Notes None recorded. Medical Equipment None Reported. Allergies Allergen ID Allergen Name Allergen Category Reaction Reaction Severity Criticality Documentation Date Start Date Code Code System Note Provider Name and Address Organization Details Recorded Time 34642 Medicinal product containin g penicilli n and acting as antibacte rial agent (product) medicatio n anaphylax is mild Not available 07/25/20232006 43292 05 SNOMED anaph ylaxi s Aller gyCod e: '8340 61'; Aller gyNam e: 'PENI CILLI N'; Aller gyCon ceptT ype: 'RX Norm' ; Not Available [facility] 3 16:07:14 79435 Lopressor medicatio n Not available Not available Not available 07/25/20232002 37025 4 RxNorm Aller gyCod e: '0014 47770 01'; Aller gyNam e: 'LOPR ESSOR '; Aller gyCon ceptT ype: 'NDC' ; Not Available [facility] 3 16:07:14 Medications Name Sig Start Date Stop Date Status Note LastModified by Organization Details LastModified Time Flomax 0.4 mg capsule 1 TAB QD 10/06 completed Not Available Not Available Not Available Klor-Con 10 mEq tablet,exte nded release Take 1 tablet by mouth daily 05/04 completed Not Available Not Available Not Available Vicodin 5 mg-500 mg tablet 1 TAB at bedtime 02/03 completed Not Available Not Available Not Available Medrol (Vijay) 4 mg tablets in a dose pack 1 TAB DIRECTED 01/26 completed Not Available Not Available Not Available Zithromax 250 mg tablet Take 2 by mouth today, then take 1 by mouth daily x 4 days 09/29 completed Not Available Not Available Not Available levothyroxi ne 25 mcg tablet 1TAB daily 10/06 completed Not Available Not Available Not Available Lasix 20 mg tablet Take 1 tab by mouth daily as needed for leg swelling 2018 active Not Available Not Available Not Avai lable pantoprazol e 40 mg tablet,rahel yed release TAKE ONE TABLET BY MOUTH EVERY DAY active Not Available Not Available No t Available lisinopril 10 mg tablet 1 tab daily 03/29 completed Not Available Not Available Not Available Glucosamine 500 mg tablet 2 tablet by mouth once a day 11/18 completed Not Available Not Available Not Available lisinopril 20 mg-hydrochl orothiazide 25 mg tablet Take 1 tablet every day by oral route. 2023 active Not Available Not Available Not Avai lable aspirin 81 mg tablet Take 1 tablet by mouth once a day 2014 active Not Available Not Available Not Avai lable lisinopril 5 mg tablet Take 1 by mouth daily 10/18 completed Not Available Not Available Not Available hydrochloro thiazide 25 mg tablet 1 tab daily 2012 active Not Available Not Available Not Avai lable mupirocin 2 % topical ointment Apply 1 a small amount to affected area twice a day 06/25 completed Not Available Not Available Not Available Aspir-81 mg tablet,rahel yed release take one tab by mouth daily 2014 active Not Available Not Available Not Avai lable lisinopril 10 mg-hydrochl orothiazide 12.5 mg tablet TAKE ONE TABLET BY MOUTH EVERY DAY 03/29 completed Not Available Not Available Not Available Tussionex Pennkinetic ER 10 mg-8 mg/5 mL suspension, extended release 5ML twice daily 06/20 completed Not Available Not Available Not Available metformin ER 500 mg tablet,exte nded release 24 hr Take 1 tablet by mouth every night 06/27 completed Not Available Not Available Not Available nitrofurant oin monohydrate /macrocryst als 100 mg capsule Take 1 capsule every 12 hours by oral route for 5 days, for urinary tract infection . 2023 active Not Available Not Available Not Avai lable [place]-3 1 daily 10/06 completed Not Available Not Available Not Available hydrochloro thiazide 12.5 mg tablet Take 1 tab by mouth daily (IN COMBINATI ON WITH LISINOPRI L/HCTZ) 09/20 completed Not Available Not Available Not Available Vyvanse 20 mg capsule Take 1 capsule every day by oral route. 11/18 completed Not Available Not Available Not Available Pen Needle 31 gauge x 11/28 Use 1 needle subcutane ously once a week WITH OZEMPIC 06/27 completed Not Available Not Available Not Available glucosamine sulfate 2KCl 500 mg-msm 166.6 mg-chondroi tin 400 mg tablet Take 1 tablet by mouth once a day 06/27 completed Not Available Not Available Not Available Victoza 3-Vijay 0.6 mg/0.1 mL (18 mg/3 mL) subcutaneou s pen injector INJECT 0.6MG SUBCUTANE OUSLY DAILY x 1 WEEK THEN INCREASE TO 1.2MG DAILY 2023 active Not Available Not Available Not Avai lable K-Tab 20 mEq tablet,exte nded release TAKE 1 TAB DAILY 10/18 completed Not Available Not Available Not Available Ozempic 0.25 mg or 0.5 mg (2 mg/1.5 mL) subcutaneou s pen injector Inject 0.5mg subcutane ously once a week 04/04 completed Not Available Not Available Not Available Vitals Date Recorded Body height Body mass index (BMI) Body weight Oxygen saturation Oxygen saturation in Arterial blood by Pulse oximetry Heart rate Systolic blood pressure Diastolic blood pressure Provider Name and Address Organization Details Last Updated DateTime 3 153.035 cm 29.3 kg/m2 82553.8 8 g 96 % 96 % 66 /min 154 mm[Hg] 62 mm[Hg] CARRIE SOSA MA [place] - [facility]. 3 16:57:46 Date Recorded Body height Oxygen saturation Oxygen saturation in Arterial blood by Pulse oximetry Heart rate Body mass index (BMI) Body weight Systolic blood pressure Diastolic blood pressure Provider Name and Address Organization Details Last Updated DateTime 4 153.035 cm 98 % 98 % 63 /min 30.8 kg/m2 24127.1 9 g 124 mm[Hg] 70 mm[Hg] CARRIE SOSA MA [facility] 4 16:45:47 Date Recorded Body height Oxygen saturation Oxygen saturation in Arterial blood by Pulse oximetry Heart rate Body mass index (BMI) Body weight Systolic blood pressure Diastolic blood pressure Provider Name and Address Organization Details Last Updated DateTime 4 153.035 cm 96 % 96 % 72 /min 29.6 kg/m2 63734.9 1 g 126 mm[Hg] 72 mm[Hg] Kyle Pack MA [facility] 4 17:09:25 Date Recorded Body height Heart rate Respiratory rate Oxygen saturation Oxygen saturation in Arterial blood by Pulse oximetry Body temperature Systolic blood pressure Diastolic blood pressure Provider Name and Address Organization Details Last Updated DateTime 4 153.035 cm 72 /min 18 /min 97 % 97 % 99.1 [degF] 126 mm[Hg] 64 mm[Hg] Radha richardson LPN [facility] 4 15:57:28 Social History Question Answer Notes LastModified by Organizat ion Details LastModified Time Tobacco Smoking Status Never Smoker Kyle Pack MA null, [facility] 12/31/2023 17:07:58 What Was The Date Of Your Most Recent Tobacco Screening? 12/31/2023 [email or web address] Information not available 12/31/2023 Do You Or Have You Ever Used Any Other Forms Of Tobacco Or Nicotine? No [email or web address] Information not available 12/31/2023 Sex: Female Functional Status None recorded. Mental Status None recorded. Family History Relationship Description Onset Age of this Age Resolved Age Notes Brother Family history of premature coronary heart disease Brother Family history of Hypercholesterolemia Brother Family history of Hypertension Brother Family history of malignant neoplasm LEUKEMIA, PROSTATE CA Brother Family history of diabetes mellitus type 1 Father Family history of premature coronary heart disease S/P CABG Father Family history of Hypercholesterolemia Father Family history of he art failure Father Family history of diabetes mellitus type 1 Mother Family history of Hypertension 86yo Mother No family history of respiratory disease 86yo Mother Family history of he art failure 86yo Sister Family history of Hypertension Sister Family history of ac jey medical disorder FIBROMYALGIA Sister Family history of diabetes mellitus type 1 Sister Family history of cardiovascular disease in first degree female relative less than 65 years of age Notes:*Problem: SONS x 3 - L &W without ongoing medical issues Medical History No medical history recorded. Gynecological HistoryNo gynecological history recorded. Obstetrics History GPAL:G 0 P 0 0 0 0 Immunizations Vaccine Type Date Status Provider Name and Address Organization Details Recorded Time Td (adult), 2 Lf tetanus toxoid, preservative free, adsorbed 12/26/2021 completed Not Available [facility] 07/25/2023 06:09:43 Tdap 10/23/2011 completed Not Available [facility] 06:09:43 zoster recombinant 12/26/[address] [facility] 07/25/2023 06:09:43 COVID-19, mRNA, LNP-S, PF, 100 mcg/0.5mL dose or 50 mcg/0.25mL dose 01/02/2021 completed Not Available [facility] 07/25/20 06:09:43 COVID-19, mRNA, LNP-S, PF, 100 mcg/0.5mL dose or 50 mcg/0.25mL dose 01/30/2021 completed Not Available [facility] 07/25/20 06:09:43 zoster recombinant 06/27/[address] [facility] 09/26/2023 05:31:39 Past Encounters Encounter ID Performer Location Encounter Start Date Encounter Closed Date Diagnosis/Indication Diagnosis SNOMED-CT Code Diagnosis ICD10 Code [id number] JEWEL WANG PA-C [address] [address] [address] 07/30/2023 16:41:14 07/30/2023 17:04:35 [id number] JEWEL WANG PA-C [facility] [address] [place] [address] 11/19/2023 16:34:48 11/19/2023 17:33:29 Hypertensive disorder [id number] I10 Obesity [id number] E66.9 Prediabetes [id number] R7 3.03 Steatosis of liver 1007 K76.0 [id number] JEWEL WANG PA-C [facility] [address] [place] [address] 12/31/2023 16:42:50 01/21/2024 21:16:43 Epigastric pain [id number] R10.13 Hypertensive disorder 38 693077 I10 Prediabetes [id number] R7 3.03 E66.9 Steatosis of liver 1007 K76.0 [id number] MESSI SRIVASTAVA, MILL CRANE OPERATOR-BC [facility] [address] [place] [address] 05/20/2024 15:18:34 05/20/2024 16:37:39 Dysuria 82026798 R30.0 Health Concerns Section Related Observation LastModified by Organization Detai ls LastModified Time None Recorded Concern Status LastModified by Organization Details LastModified Time None Recorded Advance Directives Directive None Recorded Payers Encounter Date Sequence Insurance Name Policy Number Policy Arreola Covered Member ID Arreola Member ID Guarantor Name 07/30/2023 1 [facility] (MEDICAID) Colleen Le [id number] Colleen Le 11/19/2023 1 [facility] (MEDICAID) Colleen Le [id number] Colleen Le 12/31/2023 1 *SELF PAY* Farzaneh Le 05/20/2024 2 [facility] [employer] - PLAN F (MEDICARE SUPPLEMENT) Colleen Le [id number] Colleen Le 05/20/2024 1 MEDICARE- [place] - [facility] - PART A (MEDICARE) Colleen Le [id number] 1 Colleen Le Notes Date Note Type Note Provider Name and Address Organization Details Recorded Time 07/30/2023 text/html HPI Notes: Nurse BP Check Reported by patient. Notes: Pt started on Vyvanse 06/27/2023- Elevated BP today CARRIE SOSA MA [facility], MD - [facility]. 07/30/2023 16:59:41 11/19/2023 text/html HPI Notes: 63 y/ o female presenting today for f/u HTN, FLD, and preDM/obesity. JEWEL WANG PA-C [address], [place], [address], [facility]. 11/19/2023 18:24:54 12/31/2023 text/html HPI Notes: 63 y/ o female presenting today for f/u 1m HTN, FLD, and preDM/obesity. Laurence sought evaluation via [facility] ED 12/18/23 with c/o severe epigastric pain with radiation to back that began the night prior. Ultimately was admitted to [facility] hospitalist service for management of acute gastroenteritis and EKG changes (flattening of T waves). Following telemetry monitoring, completion of echocardiogram, and troponin NEGATIVE x 3, she was d/c to home the following day on PROTONIX 40mg QD. On presentation today, patient reports abdominal sxs have resolved. No ongoing abdominal pain. Denies GERD sxs on PPI therapy as above. Without N/V or disruption of bowel function. No noted blood in stools or dark, tarry stools. Afebrile. [address], [place], [address], [facility]. 01/01/2024 11:43:14 05/20/2024 text/html HPI Notes: Onset around midnight last night of urinary urgency and frequency. Denies dysuria, fever, chills. Has not had a UTI in many years. 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 MESSI PHILIP, MILL CRANE OPERATOR- [address], [place], [address], [facility]. 05/20/2024 17:17:17 OBGyn Episode No OBEpisode recorded.
--- OUTSIDE RECORDS SUMMARY | 2024-05-20 18:20 | XMS_ITS | Encounter Summary ---
Author Organization [facility] Address [facility] [place] [address] Care Team Providers Care Crossbow Maker Name Role Phone Live ESCAMILLA MD, Zachary Menard Primary Care Provider Encounter Details Date Type Department Care Team (Latest Contact Info) Description 03/12/2013 10:00 AM EDT - 03/12/2013 11:59 PM EDT Hospital Encounter XRay at [address] [place] [address] [address], DR SANDERS Discharge Disposition: Home Social History Tobacco Use Types Packs/Day Years Used Date Smoking Tobacco: Never Assessed Sex and Gender Information Value Date Recorded Sex Assigned at Not on file Gender Identity Not on file Sexual Orientation Not on file documented as of this encounter Plan of Treatment Not on file documented as of this encounter Visit Diagnoses Not on filedocumented in this encounter Care Teams Crossbow Maker Relationship Specialty Start Date End Date Zachary Mancini III, MD [address] [address] PCP - General 08/07/10 03/16/13 documented as of this encounter
--- OUTSIDE RECORDS SUMMARY | 2024-05-20 18:20 | XMS_ITS | Encounter Summary ---
Author Organization [facility] [place] [address] Care Team Providers Care Post Graduate Intern Name Role Phone Unavailable Primary Care Provider Unavailabl e Encounter Details Date Type Department Care Team (Latest Contact Info) Description 11/07/2014 10:19 AM EST - 11/07/2014 11:59 PM EST Hospital Encounter Mammography at [facility] [place] [address] CLIN[address], DR MARILYN Chua, Lynda Sosa MD [address] [place] [address] Discharge Disposition: Home Social History Tobacco Use Types Packs/Day Years Used Date Smoking Tobacco: Never Assessed Sex and Gender Information Value Date Recorded Sex Assigned at Not on file Gender Identity Not on file Sexual Orientation Not on file documented as of this encounter Plan of Treatment Not on file documented as of this encounter Procedures Procedure Name Priority Date/Time Associated Diagnosis Comments MAMMO SCREENING CAD BILATERAL Routine 11/07/2014 11:07 AM EST documented in this encounter Results * Mammo digital bilateral Screening with CAD (11/07/2014 11:07 AM EST) Anatomical Region Laterality Modality Breast Bilateral Mammography 11/07/2014 11:0 7 AM EST Narrative 11/10/2014 10:09 AM EST REASON FOR EXAM: Screening ?? TECHNIQUE: Cranio-caudal (CC) and mediolateral oblique (MLO) views of the both breasts obtained with direct digital capture. The exam was evaluated by CAD Version 8.3.17. ?? RIGHT BREAST MAMMOGRAPHY ?? This is an indeterminate (ACR Category 0) mammogram of the Right breast. There is an area of focal asymmetry in the upper, outer Right breast, requiring additional imaging. ? LEFT BREAST MAMMOGRAPHY ?? This is a negative mammogram (ACR Category 1). There is a stable fibroglandular pattern without significant change as compared to prior studies. There is no mammographic evidence of cancer. ? The breasts are heterogeneously dense which limits mammographic sensitivity for the detection of malignancy. ? CONCLUSION ?? ASSESSMENT IS INCOMPLETE: Additional imaging recommended (ACR Category 0) of the Right breast. [facility] will contact the patient to schedule additional imaging. ?? The contralateral breast is NEGATIVE (ACR Category 1). Routine screening mammography is recommended of the Left breast with the frequency dependent on the patient's age and breast cancer risk factors. Procedure Note Shantelle Shields MD - 11/10/2014 REASON FOR EXAM: Screening TECHNIQUE: Cranio-caudal (CC) and mediolateral oblique (MLO) views of theboth breasts obtained with direct digital capture. The exam was evaluated byCAD Version 8.3.17. RIGHT BREAST MAMMOGRAPHY This is an indeterminate (ACR Category 0) mammogram of the Right breast.There is an area of focal asymmetry in the upper, outer Right breast, requiring additional imaging. LEFT BREAST MAMMOGRAPHY This is a negative mammogram (ACR Category 1). There is a stablefibroglandular pattern without significant change as compared to prior studies. There isno mammographic evidence of cancer. The breasts are heterogeneously dense which limits mammographicsensitivity for the detection of malignancy. CONCLUSION ASSESSMENT IS INCOMPLETE: Additional imaging recommended (ACR Category 0)of the Right breast. [facility] will contact the patient to schedule additional imaging. The contralateral breast is NEGATIVE (ACR Category 1). Routine screening mammography is recommended of the Left breast with the frequency dependenton the patient's age and breast cancer risk factors. Jewel EVERETT IMG MAMMO ORDERABL ES documented in this encounter Visit Diagnoses Not on filedocumented in this encounter
--- OUTSIDE RECORDS SUMMARY | 2024-05-20 18:20 | XMS_ITS | Encounter Summary ---
Author Organization [facility] [address] Care Team Providers Care Marketing Admin Name Role Phone Jewel Figueroa Primary Care Provider +1- [phone] Encounter Details Date Type Department Care Team (Latest Contact Info) Description 05/30/2023 1:48 PM EDT - 05/30/2023 11:59 PM EDT Hospital Encounter Mammography[place] [id number] Jewel Figueroa PA [address] [place] [address] Encounter for screening mammogram for breast cancer Discharge Disposition: Home Social History Tobacco Use [...] Date/Time Associated Diagnosis Comments MAMMO SCREENING CAD AND CARISA BILATERAL Routine 05/30/2023 2:42 PM EDT Encounter for screening mammogram for breast cancer documented in this encounter Results * Mammo Screening Cad and Carisa Bilateral (05/30/2023 2:42 PM EDT) Anatomical Region Laterality Modality Breast Bilateral Mammography Impressions 06/02/2023 7:06 AM EDT No mammographic evidence of malignancy. Routine annual screening mammography is recommended. FINAL ASSESSMENT: BI-RADS Category 1: Negative * ??Regular screening mammograms starting at age 40 reduces the risk of from breast cancer. * ??Yearly screening provides the most benefit. Women should discuss with their provider their preferred breast cancer screening schedule. * ??Women should report any breast changes to a health care provider right away. * ??Some women, because of their family history, a genetic tendency, or other factors, should be screened with annual breast MRI as well as with mammograms. Thank you for letting us participate in the care of this patient. ??If you are a health care provider and have any questions regarding this report, please contact the number below. ??For patients who have questions please contact the health personal care attendant that requested your imaging first. ? Electronically signed by: Shantelle Shields MD, [facility] ([phone]), at 06/02/2023 7:06 AM Narrative 06/02/2023 7:06 AM EDT EXAMINATION: MAMMO SCREENING CAD AND CARISA BILATERAL REASON FOR EXAM: Screening TECHNIQUE: CC and MLO views were obtained of BOTH breasts. 2D and 3D tomosynthesis images were obtained. Computer aided detection was used. COMPARISON: Comparison was made to the prior relevant examinations. BREAST DENSITY: There are scattered areas of fibroglandular density. FINDINGS: There are no suspicious microcalcifications, masses, or areas of distortion. Stable appearance. Jewel EVERETT IMG MAMMO ORDERABL ES documented in this encounter Visit Diagnoses Diagnosis Encounter for screening mammogram for breast cancer documented in this encounter Care Teams Marketing Admin Relationship Specialty Start Date End Date Jewel Figueroa PA [address] [place] [address] PCP - General Family Medicine 04/16/21 documented as of this encounter
--- OUTSIDE RECORDS SUMMARY | 2024-05-20 18:20 | XMS_ITS | Encounter Summary ---
[place] [address] Care Team Providers Care Edger Automatic Name Role Phone Jewel Figueroa Primary Care Provider +1- [phone] Encounter Details Date Type Department Care Team (Latest Contact Info) Description 05/30/2023 Travel Social History Tobacco Use Types Packs/Day Years Used Date Smoking Tobacco: Never Assessed Sex and Gender Information Value Date Recorded Sex Assigned at Not on file Gender Identity Not on file Sexual Orientation Not on file documented as of this encounter Plan of Treatment Not on file documented as of this encounter Visit Diagnoses Not on filedocumented in this encounter Care Teams Edger Automatic Relationship Specialty Start Date End Date eJwel Figueroa PA [address] [place] [address] PCP - General Family Medicine 04/16/21 documented as of this encounter
--- OUTSIDE RECORDS SUMMARY | 2024-05-20 18:20 | XMS_ITS | Encounter Summary ---
Author Organization [facility] [place] [address] Care Team Providers Care Street Light Repairer Name Role Phone Unavailable Primary Care Provider Unavailabl e Encounter Details Date Type Department Care Team (Latest Contact Info) Description 11/15/2014 2:47 PM EST - 11/15/2014 11:59 PM EST Hospital Encounter Mammography at [facility] [place] [address] CLIN[address], DR MARILYN Chua, Lynda Sosa MD [address] [place] [address] Abnormal mammogram, unspecified Discharge Disposition: Home Social History Tobacco Use [...] Name Priority Date/Time Associated Diagnosis Comments MAMMO CALL BACK DIAGNOSTIC EXTRA VIEW UNILATERAL Routine 11/15/2014 3:14 PM EST Abnormal mammogram, unspecified documented in this encounter Results * Mammo call back diagnostic extra view unilateral (11/15/2014 3:14 PM EST) Anatomical Region Laterality Modality Breast N/A Mammography 11/15/2014 3:14 PM EST Narrative 11/15/2014 4:26 PM EST DIAGNOSTIC MAMMOGRAPHY AND ULTRASOUND OF THE RIGHT BREAST CLINICAL HISTORY: Abnormal Screening. ??Questionable mass right upper outer quadrant TECHNIQUE AND VIEWS OBTAINED: Images acquired with direct digital capture Right true lateral, right true lateral with terms synthesis, right spot CC and right spot MLO tumor synthesis. ??Tomographic imaging was performed The exam was evaluated by CAD version 8.3.17. COMPARISONS: 2011, 2012 BREAST DENSITY: Scattered fibroglandular density FINDINGS MAMMOGRAPHY: There is a low-density 5 mm mass in the upper outer quadrant of the right breast with possibly some subtle architectural distortion in the MLO view but not in the other views. No other areas concern FINDINGS ULTRASOUND: There is a small cluster of simple cysts at 10:00 7 cm from the nipple concordant with the mammographic abnormality. The largest is 5 mm in size. A BB was placed over this area with postprocedural mammograms which confirmed concordance with the mammographic abnormality DIAGNOSTIC SUMMARY: RIGHT BREAST LESION 1 BIRADS 2. Benign finding FINDING: simple cyst SIZE: 5 mm LOCATION: Upper outer quadrant at 10 OClock 7 cm from the nipple RECOMMENDATION: Return to annual mammographic screening Procedure Note Maryam Jenkins MD - 11/15/2014 DIAGNOSTIC MAMMOGRAPHY AND ULTRASOUND OF THE RIGHT BREAST CLINICAL HISTORY: Abnormal Screening. Questionable mass right upperouter quadrant TECHNIQUE AND VIEWS OBTAINED: Images acquired with direct digital capture Right true lateral, right true lateral with terms synthesis, right spot CCand right spot MLO tumor synthesis. Tomographic imaging was performed The exam was evaluated by CAD version 8.3.17. COMPARISONS: 2011, 2012 BREAST DENSITY: Scattered fibroglandular density FINDINGS MAMMOGRAPHY: There is a low-density 5 mm mass in the upper outer quadrant of the rightbreast with possibly some subtle architectural distortion in the MLO view but notin the other views. No other areas concern FINDINGS ULTRASOUND: There is a small cluster of simple cysts at 10:00 7 cm from the nipple concordant with the mammographic abnormality. The largest is 5 mm in size.A BB was placed over this area with postprocedural mammograms which confirmed concordance with the mammographic abnormality DIAGNOSTIC SUMMARY: RIGHT BREAST LESION 1 BIRADS 2. Benign finding FINDING: simple cyst SIZE: 5 mm LOCATION: Upper outer quadrant at 10 OClock 7 cm from the nipple RECOMMENDATION: Return to annual mammographic screening Shantelle Shields MD IMG MAMMO ORD ERABLES documented in this encounter Visit Diagnoses Diagnosis Abnormal mammogram, unspecified documented in this encounter
--- OUTSIDE RECORDS SUMMARY | 2024-05-20 18:20 | XMS_ITS | Encounter Summary ---
Author Organization [facility] [place] [address] Care Team Providers Care Granite Polisher Apprentice Name Role Phone Unavailable Primary Care Provider Unavailabl e Encounter Details Date Type Department Care Team (Latest Contact Info) Description 03/26/2013 9:53 AM EDT - 03/26/2013 11:59 PM EDT Hospital Encounter Mammography at [facility] [place] [address] Zuleima Zepeda MD [address] [place] [address] [address] [place], [place] [id number] Abnormal mammogram, unspecified Discharge Disposition: Home Social [...] Name Priority Date/Time Associated Diagnosis Comments MAMMO DIRECT DIGITAL UNILATERAL Routine 03/26/2013 10:48 AM EDT Abnormal mammogram, unspecified documented in this encounter Results * Mammo direct digital unilateral (03/26/2013 10:48 AM EDT) Anatomical Region Laterality Modality Breast N/A Mammography 03/26/2013 10:4 8 AM EDT Narrative 03/26/2013 1:17 PM EDT DIAGNOSTIC LEFT MAMMOGRAPHY ON 03/26/13: ?? CLINICAL INDICATION: Area of focal asymmetry in the retroareolar/deep central Left breast noted on recent interpretation of outside mammograms. ?? TECHNIQUE: Left spot ML, ML, CC, XCCL and spot CC views obtained with direct digital capture. ?? FINDINGS: This is a negative mammogram (ACR Category 1). There is a stable fibroglandular pattern without significant change as compared to prior studies. There is no mammographic evidence of cancer. ? The study includes additional views. An initial area of concern in the Left breast completely effaces on the additional views. ?? The previously seen focal asymmetry in the central Left breast is not seen on today's exam. ? CONCLUSION ?? This is a NEGATIVE mammogram (ACR Category 1). Routine screening mammography is recommended with the frequency dependent on the patient's age and breast cancer risk factors. ?? Findings were discussed with the patient. ?? A letter has been sent to this patient by the [facility]. Procedure Note Shantelle Shields MD - 03/26/2013 DIAGNOSTIC LEFT MAMMOGRAPHY ON 03/26/13: CLINICAL INDICATION: Area of focal asymmetry in the retroareolar/deepcentral Left breast noted on recent interpretation of outside mammograms. TECHNIQUE: Left spot ML, ML, CC, XCCL and spot CC views obtained withdirect digital capture. FINDINGS: This is a negative mammogram (ACR Category 1). There is a stable fibroglandular pattern without significant change as compared to priorstudies. There is no mammographic evidence of cancer. The study includes additional views. An initial area of concern in theLeft breast completely effaces on the additional views. The previously seen focal asymmetry in the central Left breast is not seenon today's exam. CONCLUSION This is a NEGATIVE mammogram (ACR Category 1). Routine screeningmammography is recommended with the frequency dependent on the patient's age and breastcancer risk factors. Findings were discussed with the patient. A letter has been sent to this patient by the [facility]. Shantelle Shields MD IMG MAMMO ORD ERABLES documented in this encounter Visit Diagnoses Diagnosis Abnormal mammogram, unspecified documented in this encounter
--- OUTSIDE RECORDS SUMMARY | 2024-05-20 18:20 | XMS_ITS | Encounter Summary ---
[place] [address] Care Team Providers Care Diagnostic Imaging Manager Name Role Phone Jweel Figueroa Primary Care Provider +1- [phone] Encounter Details Date Type Department Care Team (Latest Contact Info) Description 01/09/2022 3:10 PM EDT - 01/09/2022 11:59 PM EDT Hospital Encounter Mammography/[place] [id number] Jewel Figueroa PA [address] [place] [address] Screening mammogram for breast cancer Discharge Disposition: Home [...] MAMMO SCREENING CAD AND CARISA BILATERAL Routine 01/09/2022 3:23 PM EDT Screening mammogram for breast cancer documented in this encounter Results * Mammo Screening Cad and Carisa Bilateral (01/09/2022 3:23 PM EDT) Anatomical Region Laterality Modality Breast Bilateral Mammography Impressions 01/10/2022 8:47 AM EDT BIRADS CATEGORY 0: INCOMPLETE MAMMOGRAM. Needs additional imaging evaluation. RECOMMENDATION: The patient will be contacted regarding the additional imaging. Thank you for letting us participate in the care of this patient. ??If you are a health care provider and have any questions regarding this report, please contact the number below. ??For patients who have questions please contact the health foster care therapist that requested your imaging first. ? Electronically signed by: Maryam Jenkins MD, [facility] ([phone]), at 01/10/2022 8:47 AM Narrative 01/10/2022 8:47 AM EDT REASON FOR EXAM: Screening TECHNIQUE: CC and MLO views were obtained of the Bilateral breast.Computer aided detection was used. 3D tomosynthesis images were obtained in addition to 2D images. FINDINGS: Breast density:There are scattered areas of fibroglandular density. Left breast. ??There are no suspicious microcalcifications, masses, or areas of distortion. No changes compared to prior studies. The Right breast is abnormal and additional imaging is required. There is a ??1.7 cm isolated enlarged round RIGHT axillary node, not seen previously. The RIGHT breast itself is normal Jewel EVERETT IMG MAMMO ORDERABL ES documented in this encounter Visit Diagnoses Diagnosis Screening mammogram for breast cancer documented in this encounter Care Teams Diagnostic Imaging Manager Relationship Specialty Start Date End Date Jewel Figueroa PA [address] [place] [address] PCP - General Family Medicine 04/16/21 documented as of this encounter
--- OUTSIDE RECORDS SUMMARY | 2024-05-20 18:20 | XMS_ITS | Encounter Summary ---
Author Organization [facility] [place] [address] Care Team Providers Care Accounts Executive Name Role Phone Live ESCAMILLA MD, Zachary Menard Primary Care Provider Encounter Details Date Type Department Care Team (Late st Contact Info) Description 02/05/2013 Orders [place] [address] Maryam Jenkins MD [facility] [place] [address] Social History Tobacco Use Types Packs/Day Years Used Date Smoking Tobacco: Never Assessed Sex and Gender Information Value Date Recorded Sex Assigned at Not on file Gender Identity Not on file Sexual Orientation Not on file documented as of this encounter Plan of Treatment Not on file documented as of this encounter Visit Diagnoses Not on filedocumented in this encounter Care Teams Accounts Executive Relationship Specialty Start Date End Date Zachary Mancini III, MD [address] [place] [address] PCP - General 08/07/10 03/16/13 documented as of this encounter
--- OUTSIDE RECORDS SUMMARY | 2024-05-20 18:20 | XMS_ITS | Encounter Summary ---
Author Organization [facility] Address [facility] [place] [address] Care Team Providers Care Die Maker Bench Stamping Name Role Phone Live ESCAMILLA MD, Zachary Sailaja Primary Care Provider Encounter Details Date Type Department Care Team (Late st Contact Info) Description 11/11/2011 [place] [address] Maryam Jenkins MD [facility] [place] [address] Social History Tobacco Use Types Packs/Day Years Used Date Smoking Tobacco: Never Assessed Sex and Gender Information Value Date Recorded Sex Assigned at Not on file Gender Identity Not on file Sexual Orientation Not on file documented as of this encounter Plan of Treatment Not on file documented as of this encounter Procedures Procedure Name Priority Date/Time Associated Diagnosis Comments FILM LIBRARY STORAGE ONLY MAMMO Routine 11/11/2011 2:50 PM EST documented in this encounter Results * Film Library- Storage only Mammo (11/11/2011 2:50 PM EST) 11/11/2011 2:50 PM EST Narrative RAD - 05/10/2014 11:43 PM EDT This is a non-reportable exam. Procedure Note Jignesh Waite - 05/10/2014 This is a non-reportable exam. Maryam Jenkins MD [facility] FILM LIBRARY ORD ERABLES [facility] [address] [facility] [place] [address] documented in this encounter Visit Diagnoses Not on filedocumented in this encounter Care Teams Die Maker Bench Stamping Relationship Specialty Start Date End Date Zachary Mancini III, MD [address] [place] [address] PCP - General 08/07/10 03/16/13 documented as of this encounter
--- OUTSIDE RECORDS SUMMARY | 2024-05-20 18:20 | XMS_ITS | Encounter Summary ---
Author Organization [facility] Address [facility] [place] [address] Care Team Providers Care Academic Success Coordinator Name Role Phone Live ESCAMILLA MD, Zachary Menard Primary Care Provider Encounter Details Date Type Department Care Team (Late st Contact Info) Description 03/12/2013 External Results XRay at [address] [place] [address] Zuleima Zepeda MD [address] [place] [address] [place] [address] Social History Tobacco Use Types Packs/Day Years Used Date Smoking Tobacco: Never Assessed Sex and Gender Information Value Date Recorded Sex Assigned at Not on file Gender Identity Not on file Sexual Orientation Not on file documented as of this encounter Plan of Treatment Not on file documented as of this encounter Procedures Procedure Name Priority Date/Time Associated Diagnosis Comments MAMMOGRAM SCAN Routine 02/05/2013 MAMMOGRAM SCAN Routine 02/02/2013 MAMMOGRAM SCAN Routine 11/11/2011 MAMMOGRAM SCAN Routine 11/06/2011 MAMMOGRAM SCAN Routine 03/20/2010 documented in this encounter Results * Scan Doc: Mammogram (02/05/2013) Anatomical Region Laterality Modality Other Zuleima Zepeda MD MEDIA MGR SCAN EXT O RDR/RSLT * Scan Doc: Mammogram (02/02/2013) Anatomical Region Laterality Modality Other Zuleima Zepeda MD MEDIA MGR SCAN EXT O RDR/RSLT * Scan Doc: Mammogram (11/11/2011) Anatomical Region Laterality Modality Other Zuleima Zepeda MD MEDIA MGR SCAN EXT O RDR/RSLT * Scan Doc: Mammogram (11/06/2011) Anatomical Region Laterality Modality Other Zuleima Katelyn COHEN MGR SCAN EXT O RDR/RSLT * Scan Doc: Mammogram (03/20/2010) Anatomical Region Laterality Modality Other Zuleima Katelyn COHEN MGR SCAN EXT O RDR/RSLT documented in this encounter Visit Diagnoses Not on filedocumented in this encounter Care Teams Academic Success Coordinator Relationship Specialty Start Date End Date Zachary Mancini III, MD [address] [address] PCP - General 08/07/10 03/16/13 documented as of this encounter
--- OUTSIDE RECORDS SUMMARY | 2024-05-20 18:20 | XMS_ITS | Encounter Summary ---
Author Organization [facility] Address [facility] [place] [address] Care Team Providers Care Braid Maker Name Role Phone Unavailable Primary Care Provider Unavailabl e Encounter Details Date Type Department Care Team (Late st Contact Info) Description 03/17/2013 [place] [address] Shantelle Shields MD [facility] [address] DIAGNOSTIC [place] [address] Abnormal mammogram, unspecified (Primary Dx) Social History Tobacco Use Types Packs/Day Years Used Date Smoking Tobacco: Never Assessed Sex and Gender Information Value Date Recorded Sex Assigned at Not on file Gender Identity Not on file Sexual Orientation Not on file documented as of this encounter Plan of Treatment Not on file documented as of this encounter Results * Mammo direct digital [...] this encounter Visit Diagnoses Diagnosis Abnormal mammogram, unspecified- Primary Abnormal mammogram, unspecified documented in this encounter
--- OUTSIDE RECORDS SUMMARY | 2024-05-20 18:20 | XMS_ITS | Encounter Summary ---
Author Organization [facility] [place] [address] Care Team Providers Care Instrumentation Chemist Name Role Phone Lynda Chua MD Primary Care Provider [phone] Encounter Details Date Type Department Care Team (Latest Contact Info) Description 11/23/2018 9:34 AM EDT - 11/23/2018 11:59 PM EDT Hospital Encounter Mammography/[place] [id number] Jewel Figueroa PA [address] [place] [address] Encounter for screening mammogram for breast cancer [...] MAMMO SCREENING CAD AND CARISA BILATERAL Routine 11/23/2018 9:46 AM EDT Encounter for screening mammogram for breast cancer documented in this encounter Results * Mammo Screening Cad and Carisa Bilateral (11/23/2018 9:46 AM EDT) Anatomical Region Laterality Modality Breast Bilateral Mammography Narrative 11/23/2018 10:08 AM EDT BILATERAL MAMMOGRAPHY REASON FOR EXAM: Screening TECHNIQUE: CC and MLO views were obtained of each breast using standard 2-D mammography as well as 3-D tomosynthesis. Computer aided detection was used. This is compared with prior images. FINDINGS: There are scattered areas of fibroglandular density. There are no suspicious microcalcifications, masses, or areas of distortion. The pattern is stable. CONCLUSION: No mammographic evidence of malignancy. RECOMMENDATION: Medical organizations agree that annual screening mammography beginning at age 40 saves the most lives. The risks of screening are negligible compared to dying from breast cancer or suffering from more aggressive treatment required when detected at a later stage. No woman is at low risk for breast cancer. Some women, because of their family history, a genetic tendency, or certain other factors, should be screened with breast MRI along with mammograms. (The number of women who fall into this category is very small). The patient and health care provider should discuss the patient history and decide if earlier screening and breast MRI are appropriate. Screening should continue as long as a woman is in good health and is expected to live 10 years or longer. Screening mammography may not detect 10-15% of breast cancers. Women should report any breast changes to a health care provider right away. A result letter has been sent to this patient by the [facility]. BIRADS CATEGORY 1: NEGATIVE Jewel [place]ERETT IMG MAMMO ORDERABL ES documented in this encounter Visit Diagnoses Diagnosis Encounter for screening mammogram for breast cancer documented in this encounter Care Teams Instrumentation Chemist Relationship Specialty Start Date End Date Lynda Chua MD [address] [place] [address] PCP - General Family Medicine 04/15/16 04/15/21 documented as of this encounter
--- OUTSIDE RECORDS SUMMARY | 2024-05-20 18:20 | XMS_ITS | Encounter Summary ---
Author Organization [facility] Address [facility] [place] [address] Care Team Providers Care Provider Service Representative Name Role Phone Unavailable Primary Care Provider Unavailabl e Encounter Details Date Type Department Care Team (Late st Contact Info) Description 11/08/2014 Orders [place] [address] Shantelle Shields MD [facility] [place] [address] Abnormal mammogram, unspecified Social History Tobacco Use Types Packs/Day Years Used Date Smoking Tobacco: Never Assessed Sex and Gender Information Value Date Recorded Sex Assigned at Not on file Gender Identity Not on file Sexual Orientation Not on file documented as of this encounter Plan of Treatment Not on file documented as of this encounter Results * Mammo Breast Ultrasound Limited (11/15/2014 3:44 PM EST) Anatomical Region Laterality Modality Breast N/A Mammography 11/15/2014 3:44 PM EST Narrative 11/15/2014 4:26 PM EST [...] Shantelle Shields MD IMG MAMMO ORD ERABLES * Mammo call back diagnostic extra view [...] encounter Visit Diagnoses Diagnosis Abnormal mammogram, unspecified Abnormal mammogram, unspecified Abnormal mammogram, unspecified documented in this encounter
--- OUTSIDE RECORDS SUMMARY | 2024-05-20 18:20 | XMS_ITS | Encounter Summary ---
Author Organization [facility] Address [facility] [place] [address] Care Team Providers Care Cost Recovery Technician Name Role Phone Jewel Figueroa Primary Care Provider [phone] Encounter Details Date Type Department Care Team (Latest Contact Info) Description 01/14/2022 3:03 PM EDT - 01/14/2022 11:59 PM EDT Hospital [place] [address] Maryam Jenkins MD 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 Advise a 4 month follow-up right axillary ultrasound to confirm this benign impression. These results were provided to the patient on the day of her visit. BI-RADS Category 3: Probably Benign Finding. Short interval follow-up or continued surveillance mammography Thank you for letting us participate in the care of this patient. ??If you are a health care provider and have any questions regarding this report, please contact the number below. ??For patients who have questions please contact the health childcare center administrator that requested your imaging first. ? Narrative 01/14/2022 3:46 PM EDT EXAMINATION: MAMMO US AXILLA RIGHT CLINICAL HISTORY: abnormal mammo Patient had Covid a few months ago and had a vaccine in her right arm about 3 weeks ago, right arm still sore TECHNIQUE: High-resolution ultrasound was performed of the right axilla. COMPARISON: Mammogram 01/09/2022 FINDINGS: There is smooth cortical thickening of 2 lymph nodes in the right axilla. The larger measures 1.7 cm in maximal diameter with cortical thickening to 0.6 cm. The smaller lymph node measures 0.9 cm in diameter with cortical thickening up to 0.5 cm in diameter. Maryam Jenkins MD IMG MAMMO ORDERABLES documented in this encounter Visit Diagnoses Diagnosis Abnormal finding on breast imaging Other (abnormal) findings on radiological examination of breast documented in this encounter Care Teams Cost Recovery Technician Relationship Specialty Start Date End Date Jewel Figueroa PA [address] [place] [address] PCP - General Family Medicine 04/16/21 documented as of this encounter
--- OUTSIDE RECORDS SUMMARY | 2024-05-20 18:20 | XMS_ITS | Encounter Summary ---
Author Organization [facility] [address] Care Team Providers Care Value Stream Manager Name Role Phone Lynda Chua MD Primary Care Provider [phone] Encounter Details Date Type Department Care Team (Latest Contact Info) Description 04/15/2016 10:34 AM EDT - 04/15/2016 11:59 PM EDT Hospital [place] [id number] Lynda Chua MD [address] [place], [place] [address] Encounter for screening mammogram for malignant neoplasm of breast Discharge Disposition: Home Social History Tobacco Use [...] MAMMO SCREENING CAD AND CARISA BILATERAL Routine 04/15/2016 10:55 AM EDT Encounter for screening mammogram for malignant neoplasm of breast documented in this encounter Results * Mammo Digital Bilateral Screening With CAD and Tomosynthesis (04/15/2016 10:55 AM EDT) Anatomical Region Laterality Modality Breast Bilateral Mammography Narrative 04/15/2016 11:57 AM EDT BILATERAL MAMMOGRAPHY REASON FOR EXAM: Screening. TECHNIQUE: CC and MLO views were obtained of each breast using standard 2-D mammography as well as 3-D tomosynthesis. Computer aided detection was used. Comparison: This is compared with prior images. FINDINGS: There are scattered areas of fibroglandular density. There are no suspicious microcalcifications, masses, or areas of distortion. The pattern is stable. Right upper and outer breast focal asymmetry is stable. CONCLUSION: No mammographic evidence of malignancy. RECOMMENDATION: Routine screening. A result letter has been sent to this patient by the [facility]. BIRADS CATEGORY 2: Benign findings. * ??The [employer] and The Society of Breast Imaging recommend annual screening beginning at age 40 for the general female population. * ??Screening should continue as long as a woman is in good health and is expected to live 10 more years or longer. * ??All women should be familiar with the known benefits, limitations, and potential harms linked to breast cancer screening. They also should know how their breasts normally look and feel and report any breast changes to a health care provider right away. * ??Some women, because of their family history, a genetic tendency, or certain other factors, should be screened with MRIs along with mammograms. (The number of women who fall into this category is very small.) The patient and health care provider should discuss the patient history and decide if earlier screening and breast MRI are appropriate. Lynda Chua MD IMG MAMMO ORDERABLES documented in this encounter Visit Diagnoses Diagnosis Encounter for screening mammogram for malignant neoplasm of breast Other screening mammogram documented in this encounter Care Teams Value Stream Manager Relationship Specialty Start Date End Date Lynda Chua MD [address] [place] [address] PCP - General Family Medicine 04/15/16 04/15/21 documented as of this encounter
--- OUTSIDE RECORDS SUMMARY | 2024-05-20 18:20 | XMS_ITS | Continuity of Care Document ---
Author Organization [place] - [facility] Address [address] [place] [address] Care Team Providers Care Insurance Follow Up Specialist Name Role Phone [facility] Dentist Assessment Encounter Date Assessment Date Assessment LastModified by Organization Details LastModified Time 05/20/2024 05/20/2024 Patient presents with symptoms of UTI. Results of dipstick were positive for UTI. Advised to drink clear fluids, Tylenol for pain and take prescribed medications as instructed. Patient encouraged to follow up within 1 week if not improving. [email or web address] Not available 05/20/2024 15:54:13 Plan of Treatment Reminders Order Date Submit Date Provider Last Modified By Organization Details Last Modified Time Details Appointments Acute 30 2023 03:30P M Not available Not available Not available Lab urinal ysis, dipsti ck 2023 024 [facility], [address] [place], [address], 05/20/2024 17:08:48 cultur e, urine + sensit ivity [address] [facility] (Registration ), [address] [place] [address] [place], [address], 05/20/2024 17:08:48 Referral None record ed. Procedures None record ed. Surgeries None record ed. Imaging None record ed. Medication Orders nitrof uranto in monohy drate/ macroc rystal s 100 mg capsul e 2023 024 [facility], [address] [place], [address], 05/20/2024 16:31:05 Patient TargetsNo targets recorded. Patient InstructionsNo instructions recorded. Reason for Referral None Reported. Results Created Date Observation Date Name Description Value Unit Range Abnormal Flag Note LastModifiedBy Organization Detail LastModifiedTime 05/20/20 24 05/20/2024 urina lysis , dipst ick Leukocytes Large Not Available [facility] [address] [place], [address], 05/20/2024 15:45:23 05/20/20 24 05/20/2024 urina lysis , dipst ick Nitrite positi ve Not Available [facility] [address] [place], [address], 05/20/2024 15:45:23 05/20/20 24 05/20/2024 urina lysis , dipst ick Urobilinogen .2 Not Available [facility] [address] [place], [address], 05/20/2024 15:45:23 05/20/20 24 05/20/2024 urina lysis , dipst ick Protein Trace Not Available [facility] [address] [place], [address], 05/20/2024 15:45:23 05/20/20 24 05/20/2024 urina lysis , dipst ick pH 6.0 Not Available [facility] [address] [place], [address], 05/20/2024 15:45:23 05/20/20 24 05/20/2024 urina lysis , dipst ick Blood Large Not Available [facility] [address] [place], [address], 05/20/2024 15:45:23 05/20/20 24 05/20/2024 urina lysis , dipst ick Specific [place] 1.010 Not Available [address], [address], 05/20/2024 15:45:23 05/20/20 24 05/20/2024 urina lysis , dipst ick Ketone Negati ve Not Available [address], [address], 05/20/2024 15:45:23 05/20/20 24 05/20/2024 urina lysis , dipst ick Bilirubin Negati ve Not Available [address], [address], 05/20/2024 15:45:23 05/20/20 24 05/20/2024 urina lysis , dipst ick Glucose Negati ve Not Available [address], [address], 05/20/2024 15:45:23 05/20/20 24 05/20/2024 urina lysis , dipst ick Appearance Cloudy Not Available [address], [address], 05/20/2024 15:45:23 05/20/20 24 05/20/2024 urina lysis , dipst ick Color Yellow Not Available [address], [address], 05/20/2024 15:45:23 Result Notes None recorded. Problems Name Problem SNOMED Code Status Onset Date Resolution Date Notes Provider Name and Address Organization Details Recorded Time Cristhian jang nohemimariza luceroon 75029870 Active 200602/19/20 23 - Comments only - Jewel Figueroa PA-C - - HTN Today's BP suggests good control on LISINOPR IL-HCTZ 10-12.5m g QD and PRN LASIX 20mg QD for LE edema. Problem Code: I10; Problem Code Type: ICD-10; Not Available [facility] 3 05:20:36 Obesity 518728173 Active 200202/19/20 23 - Comments only - Jewel Figueroa PA-C - BMI stable @ 28. After some discussi on, Zuly has opted to continue on OZEMPIC on taper to stretch out current supply (specifi anh 0.25mg QWK x 1m then 0.25mg QOWK). If she finds appetite uncontro llable (+/- begins regainin g weight), will reach out to [facility] to explore other options VICTOZA vs METFORMI N vs. NAC (to address ?compuls alicia eating). Problem Code: E66.9; Problem Code Type: ICD-10; Not Available [facility] 3 05:20:36 General examinat ion of patient Active 201512/27/19 22 - Comments only - Jewel Figueroa PA-C - Td booster and SHINGRIX #1 administ ered today. Patient agrees to return to [facility] in a few weeks for administ ration of Moderna booster via [facility]. Mammogra m order reprinte d to allow for scheduli ng at [facility]. Problem Code: Z00.8; Problem Code Type: ICD-10; Not Available [facility] 3 05:20:36 Prediabe daniel 617874288 Active 201612/31/19 23 - Comments only - Jewel Figueroa PA-C - Patient commende d on ongoing weight loss efforts. Repeat HBA1C collecte d today as monitori ng on OZEMPIC ?0.5mg QWK Problem Code: R73.03; Problem Code Type: ICD-10; Not Available [facility] 3 05:20:36 Pain of left knee joint [id number] 4107 Completed 201703/11/2018 03/01/20 18 - Comments only - Jewel Figueroa PA-C - Patient denies indicati on for more advanced treatmen t interven tions at this time, however, is willing to initiate OTC GLUCOSAM INE/JOURDAN DROINTIN +/- OTC ALEVE. Patient agrees to contact [facility] if sxs should prove progress alicia, at which point we could consider for scheduli ng for x-ray imaging to determin e extent of OA contribu ting to sxs. Problem Code: M25.562; Problem Code Type: ICD-10; Not Available [facility] 3 05:20:36 Acquired absence of cervix and uterus 414310462 Active 2018 Problem Code: Z90.710; Problem Code Type: ICD-10; Not Available [facility] 3 05:20:36 Acute sinusiti s 38429022 Completed 201910/08/2019 09/25/19 20 - Comments only - Jewel Figueroa PA-C - Suspecte d secondar y process s/p influenz a. Will treat with RXd ZITHROMA X as ZPAK. OK to continue with supporti ve therapie s (OTC deconges tant free cold and cough preparat ions, NSAIDS/T YLENOL) for symptom control. Would expect for progress alicia improvem ent over the course of this upcoming weekend. F/U PRN. Problem Code: J01.90; Problem Code Type: ICD-10; Not Available [facility] 3 05:20:36 Acute bronchit is 35885508 Completed 201910/08/2019 Problem Code: J20.9; Problem Code Type: ICD-10; Not Available [facility] 3 05:20:36 Hypokale heriberto 69912120 Active 202009/20/19 21 - Comments only - Jewel Figueroa PA-C - Given patient demonstr ated pain [...] E87.6; Problem Code Type: ICD-10; Not Available [facility] 3 05:20:37 Disorder of skin and/or subcutan eous tissue 29372241 Completed 202004/20/2021 04/06/20 21 - Comments only - Jewel Figueroa PA-C - After cleansin g the area [...] L98.8; Problem Code Type: ICD-10; Not Available [facility] 3 05:20:37 Nonulcer dyspepsi a 0810688 Active 202112/27/19 22 - Comments only - Jewel Figueroa PA-C - Patient encourag ed to make efforts to ensure food chewed fully and consider to add OTC PROBIOTI C vs. KEFIR QD to restore digestiv e warner balance. Problem Code: K30; Problem Code Type: ICD-10; Not Available [facility] 3 05:20:37 Fatigue 93333091 Completed 202107/10/2022 Problem Code: R53.83; Problem Code Type: ICD-10; Not Available [facility] 3 05:20:37 Steatosi s of liver 628595202 Active 202102/19/20 23 - Comments only - Jewel Figueroa PA-C - FIB-4 score calculat ed @ 0.75 on 12/30/22 to suggest low risk for advanced liver fibrosis . Will continue to monitor. Problem Code: K76.0; Problem Code Type: ICD-10; Not Available [facility] 3 05:20:37 Benign lipomato us tumor 395815597 Completed 202201/10/2023 12/31/19 23 - Comments only - Jewel Figueroa PA-C - Patient reassure d lesion likely reflecti ve of benign lipoma. No indicati on for excision at this point due to minimall y botherso me, however, could consider to schedule for removal with [facility] if this becomes more problema tic in the future. Problem Code: D17.9; Problem Code Type: ICD-10; Not Available [facility] 3 05:20:37 Kidney stone 25726199 Completed 200606/11/2023 Not Available [facility] 3 05:20:37 [place] 912729462 Completed 200206/11/2023 Problem Code: 782.62; Problem Code Type: ICD-9; Not Available [facility] 3 05:20:37 Lumbosac ral neuritis 98864864 Completed 201208/27/2017 Not Available [facility] 3 05:20:37 Insomnia 635176338 Completed 200208/27/2017 Problem Code: G47.00; Problem Code Type: ICD-10; Not Available [facility] 3 05:20:38 Shoulder joint pain 052593985 Completed 201108/27/2017 Problem Code: M25.519; Problem Code Type: ICD-10; Not Available [facility] 3 05:20:38 Hyperten sive disorder 06046752 Completed 200606/11/2023 12/28/19 21 - Comments only - Jewel Figueroa PA-C - Today's BP suggests fair control on LISINOPR IL-HCTZ 10-12.5m g QD and PRN LASIX 20mg QD. CARRIE SOSA [facility] [place], [place] - [facility]. 4 09:50:52 [facility] hyperten neri 58911321 Completed 200303/29/2015 Problem Code: 401.9; Problem Code Type: ICD-9; Not Available [facility] 3 05:20:38 Mammogra phy abnormal 138033943 Completed 201208/27/2017 Problem Code: 793.80; Problem Code Type: ICD-9; Not Available [facility] 3 05:20:38 Impaired fasting glycemia 572212302 Completed 201606/11/2023 11/23/19 20 - Comments only - Jewel Figueroa PA-C - Repeat HBA1C collecte d today as chaim braxton. Problem Code: R73.01; Problem Code Type: ICD-10; Not Available [facility] 3 05:20:39 Shoulder pain 82714855 Completed 201106/11/2023 Not Available [facility] 3 05:20:39 Hyperten sive disorder 83037711 Active 202312/28/19 21 - Comments only - Jewel Figueroa PA-C - Today's BP suggests fair control on LISINOPR IL-HCTZ 10-12.5m g QD and PRN LASIX 20mg QD. SHERRY [place], [place] - [facility]. 4 09:50:51 Problem Notes None recorded. Medical Equipment None Reported. Allergies Allergen ID Allergen Name Allergen Category Reaction Reaction Severity Criticality Documentation Date Start Date Code Code System Note Provider Name and Address Organization Details Recorded Time 73997 Medicinal product containin g penicilli n and acting as antibacte rial agent (product) medicatio n anaphylax is mild Not available 07/25/20232006 38450 05 SNOMED anaph ylaxi s Aller gyCod e: '8340 61'; Aller gyNam e: 'PENI CILLI N'; Aller gyCon ceptT ype: 'RX Norm' ; Not Available [facility] 3 16:07:14 20512 Lopressor medicatio n Not available Not available Not available 07/25/2023200234 4 RxNorm Aller gyCod e: '0014 21171 01'; Aller gyNam e: 'LOPR ESSOR '; Aller gyCon ceptT ype: 'NDC' ; Not Available [facility] 3 16:07:14 Medications Name Sig Start Date [...] Not Available Not Available Not Avai lable [place]-3 1 daily 10/06 completed Not Available Not Available Not Available hydrochloro thiazide 12.5 mg tablet Take 1 tab by mouth daily (IN COMBINATI ON WITH LISINOPRI L/HCTZ) 09/20 completed Not Available Not Available Not Available Vyvanse 20 mg capsule Take 1 capsule every day by oral route. 11/18 completed Not Available Not Available Not Available Pen Needle 31 gauge x /16 Use 1 needle subcutane ously once a [...] Not Available Vitals Date Recorded Body height Heart rate Respiratory rate Oxygen saturation Oxygen saturation in Arterial blood by Pulse oximetry Body temperature Systolic blood pressure Diastolic blood pressure Provider Name and Address Organization Details Last Updated DateTime 09/05/202 4 153.035 cm 72 /min 18 /min 97 % 97 % 99.1 [degF] 126 mm[Hg] 64 mm[Hg] Radha richardson LPN [facility] 15:57:28 Social History Question Answer Notes LastModified by Organizat ion Details LastModified Time Tobacco Smoking Status Never Smoker Kyle Pakc MA null, [facility] 12/31/2023 17:07:58 What Was The Date Of Your Most Recent Tobacco Screening? 12/31/2023 Information not available 12/31/2023 Do You Or Have You Ever Used Any Other Forms Of Tobacco Or Nicotine? No [email or web address] Information not available 12/31/2023 Sex: Female Functional [...] preservative free, adsorbed 12/26/2021 completed Not Available [facility] 07/25/2023 06:09:43 Tdap 10/23/2011 completed Not Available [facility] 06:09:43 zoster recombinant 12/26/2021 completed Not Available [facility] 07/25/2023 06:09:43 COVID-19, mRNA, LNP-S, PF, 100 mcg/0.5mL dose or 50 mcg/0.25mL dose 01/02/2021 completed Not Available [facility] 07/25/20 06:09:43 COVID-19, mRNA, LNP-S, PF, 100 mcg/0.5mL dose or 50 mcg/0.25mL dose 01/30/2021 completed Not Available [facility] 07/25/20 06:09:43 zoster recombinant 06/27/2023 completed Not Available [facility] 09/26/2023 05:31:39 Past Encounters Encounter ID Performer Location Encounter Start Date Encounter Closed Date Diagnosis/Indication Diagnosis SNOMED-CT Code Diagnosis ICD10 Code [id number] MESSI SRIVASTAVA [facility] [address] [place] [address] 05/20/2024 15:18:34 05/20/2024 16:37:39 Dysuria 28900815 R30.0 Health Concerns Section Related Observation LastModified by Organization Detai ls LastModified Time None Recorded Concern Status LastModified by Organization Details LastModified Time None Recorded Payers Encounter Date Sequence Insurance Name Policy Number Policy Arreola Covered Member ID Arreola Member ID Guarantor Name 05/20/2024 2 [employer] - PLAN F (MEDICARE SUPPLEMENT) Colleen Le [id number] Colleen Le 05/20/2024 1 MEDICARE- [place] - [facility] - PART A (MEDICARE) Colleen Le [id number] 1 Colleen Le Notes Date Note Type Note Provider Name and Address Organization Details Recorded Time 05/20/2024 text/html HPI Notes: Onset around midnight last night of urinary urgency and frequency. Denies dysuria, fever, chills. Has not had a UTI in many years. 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 [address], [place], [address], [facility]. 05/20/2024 17:17:17 OBGyn Episode No OBEpisode recorded.
--- OUTSIDE RECORDS SUMMARY | 2024-05-20 18:20 | XMS_ITS | Encounter Summary ---
[place] [address] Care Team Providers Care Band Instrument Repairer Name Role Phone Lynda Chua MD Primary Care Provider [phone] Encounter Details Date Type Department Care Team (Late st Contact Info) Description 10/19/2018 Telephone Mammography/[place] [phone] Jewel Figueroa PA [address] [place], [place] [address] Social History Tobacco Use Types Packs/Day Years Used Date Smoking Tobacco: Never Assessed Sex and Gender Information Value Date Recorded Sex Assigned at Not on file Gender Identity Not on file Sexual Orientation Not on file documented as of this encounter Plan of Treatment Not on file documented as of this encounter Visit Diagnoses Not on filedocumented in this encounter Care Teams Band Instrument Repairer Relationship Specialty Start Date End Date Lynda Chua MD [address] [place], [place] [address] PCP - General Family Medicine 04/15/16 04/15/21 documented as of this encounter
--- OUTSIDE RECORDS SUMMARY | 2024-05-20 18:20 | XMS_ITS | Encounter Summary ---
[place] [address] Care Team Providers Care Wood Carving Lathe Operator Name Role Phone Jewel Figueroa Primary Care Provider [phone] Encounter Details Date Type Department Care Team (Late st Contact Info) Description 05/14/2022 Telephone Mammography/[place] [id number] Stella Dooley Social History Tobacco Use Types Packs/Day Years Used Date Smoking Tobacco: Never Assessed Sex and Gender Information Value Date Recorded Sex Assigned at Not on file Gender Identity Not on file Sexual Orientation Not on file documented as of this encounter Plan of Treatment Not on file documented as of this encounter Visit Diagnoses Not on filedocumented in this encounter Care Teams Wood Carving Lathe Operator Relationship Specialty Start Date End Date Jewel Figueroa PA [address] [place] [address] PCP - General Family Medicine 04/16/21 documented as of this encounter
--- OUTSIDE RECORDS SUMMARY | 2024-05-20 18:20 | XMS_ITS | Encounter Summary ---
Author Organization [facility] Address [facility] [place] [address] Care Team Providers Care Electronic Parts Salesperson Name Role Phone Unavailable Primary Care Provider Unavailabl e Encounter Details Date Type Department Care Team (Late st Contact Info) Description 11/07/2014 10:20 AM EST - 11/07/2014 11:59 PM EST Hospital Encounter XRay at [address] [place] [address] Social History Tobacco Use Types Packs/Day Years Used Date Smoking Tobacco: Never Assessed Sex and Gender Information Value Date Recorded Sex Assigned at Not on file Gender Identity Not on file Sexual Orientation Not on file documented as of this encounter Plan of Treatment Not on file documented as of this encounter Procedures Procedure Name Priority Date/Time Associated Diagnosis Comments DXA CENTRAL SPINE, HIP, AND/OR WHOLE BODY (GENERIC) Routine 11/07/2014 10:52 AM EST documented in this encounter Results * Dexa central-spine, hip, and/or whole body (11/07/2014 10:52 AM EST) Anatomical Region Laterality Modality C-spine, Hip N/A Radiographic Jena ging 11/07/2014 10:5 2 AM EST Impressions 11/10/2014 11:08 AM EST IMPRESSION: Normal by WHO criteria. Estimating Fracture Risk: ? The relationship between bone mineral density (BMD) and risk of fracture is well established. As BMD decreases, risk increases. Quantifying risk is difficult and is usually limited to estimation of the relative risk - a term which may have limited value when trying to discuss an individual's risk. Estimating the absolute risk for a patient requires an understanding of the incidence rate in a given population and consideration of multiple, partially independent, risk factors in addition to BMD. ? The World Health Organization (WHO) has developed a fracture risk prediction tool that calculates a ten-year risk of major osteoporotic fracture based on femoral neck bone density measurements and nine clinical risk factors for individuals who have not been treated for osteoporosis. This is available through an interactive web-based interface (http://www.shef.ac.uk/FRAX/) and can be used to estimate a given patient's absolute risk of major osteoporotic fracture or hip fracture over the next 10 years. These estimates may prove useful when discussing risk with a patient. It is important, however, to understand the tool's limitations and how a given individual's risk might differ from the tool's estimate. The tool does not take into account the dose-response associated with most risk factors. For example, the significant increase in risk associated with multiple prior fractures compared to a single prior fracture is not taken into account. Similarly, the location of a previous fracture, the amount of glucocorticoids and number of cigarettes smoked are not considered. These limitations are discussed in a Frequently Asked Questions section of the FRAX website which you are encouraged to review. ? DEXA data sheets with BMD measurements and plots are available in [employer] under the imaging tab. Paper copies will be sent to providers without [employer] access. If you have received this report without the data sheet and do not have access to [employer], please contact Radiology Accounts Payable Assistant at [phone] Friday thru Friday 8am-4pm. Narrative 11/10/2014 11:08 AM EST EXAMINATION: DXA CENTRAL-SPINE,HIP, AND/OR WHOLE BODY CLINICAL HISTORY: BASELINE TECHNIQUE: Scans were acquired at the lumbar spine, left hip. COMPARISON: None FINDINGS: Lowest T-score at a diagnostic region of interest: T-score: 0.1, CLARITZA: Femoral neck, WHO diagnosis: Normal. Procedure Note Greyson Leon MD - 11/10/2014 EXAMINATION: DXA CENTRAL-SPINE,HIP, AND/OR WHOLE BODY CLINICAL HISTORY: BASELINE TECHNIQUE: Scans were acquired at the lumbar spine, left hip. COMPARISON: None FINDINGS: Lowest T-score at a diagnostic region of interest: T-score: 0.1, CLARITZA: Femoral neck, WHO diagnosis: Normal. IMPRESSION IMPRESSION: Normal by WHO criteria. Estimating Fracture Risk: ? The relationship between bone mineral density (BMD) and risk of fractureis well established. As BMD decreases, risk increases. Quantifying risk isdifficult and is usually limited to estimation of the relative risk - a term which mayhave limited value when trying to discuss an individual's risk. Estimatingthe absolute risk for a patient requires an understanding of the incidencerate in a given population and consideration of multiple, partially independent,risk factors in addition to BMD. ? The World Health Organization (WHO) has developed a fracture riskprediction tool that calculates a ten-year risk of major osteoporotic fracture basedon femoral neck bone density measurements and nine clinical risk factorsfor individuals who have not been treated for osteoporosis. This isavailable through an interactive web-based interface (http://www.shef.ac.uk/FRAX/)and can be used to estimate a given patient's absolute risk of majorosteoporotic fracture or hip fracture over the next 10 years. These estimates mayprove useful when discussing risk with a patient. It is important, however, to understand the tool's limitations and how a given individual's risk mightdiffer from the tool's estimate. The tool does not take into account thedose-response associated with most risk factors. For example, the significant increasein risk associated with multiple prior fractures compared to a single priorfracture is not taken into account. Similarly, the location of a previous fracture,the amount of glucocorticoids and number of cigarettes smoked are notconsidered. These limitations are discussed in a Frequently Asked Questions sectionof the FRAX website which you are encouraged to review. ? DEXA data sheets with BMD measurements and plots are available in E-DHunder the imaging tab. Paper copies will be sent to providers without [employer] access.If you have received this report without the data sheet and do not haveaccess to [employer], please contact Radiology Accounts Payable Assistant at [phone] Friday thruFriday 8am-4pm. Jewel EVERETT IMG DEXA ORDERABLE S documented in this encounter Visit Diagnoses Not on filedocumented in this encounter
--- OUTSIDE RECORDS SUMMARY | 2024-05-20 18:20 | XMS_ITS | Encounter Summary ---
[place] [address] Care Team Providers Care Student Dean Name Role Phone Lynda Chua MD Primary Care Provider [phone] Encounter Details Date Type Department Care Team (Latest Contact Info) Description 10/29/2017 2:25 PM EST - 10/29/2017 11:59 PM EST Hospital [place] [address] Lynda Chua MD [address] [place], [place] [id number] Encounter for routine history and physical exam in female patient Discharge Disposition: Home Social History Tobacco Use [...] MAMMO SCREENING CAD AND CARISA BILATERAL Routine 10/29/2017 2:46 PM EST Encounter for routine history and physical exam in female patient documented in this encounter Results * Mammo Screen CAD and Carisa Bilat (Generic) (10/29/2017 2:46 PM EST) Anatomical Region Laterality Modality Breast Bilateral Mammography Narrative 10/30/2017 10:32 AM EST BILATERAL MAMMOGRAPHY REASON FOR EXAM: Screening TECHNIQUE: [...] CONCLUSION: No mammographic evidence of malignancy. RECOMMENDATION: The [employer] and The Society of Breast Imaging recommend annual screening beginning at age 40 for the general female population. Screening should continue as long as a woman is in good health and is expected to live 10 more years or longer. All women should be familiar with the known benefits, limitations, and potential harms linked to breast cancer screening. They should also know how their breasts normally look and feel and report any breast changes to a health care provider right away. Some women - because of their family history, a genetic tendency, or certain other factors - should be screened with MRIs along with mammograms. (The number of women who fall into this category is very small.) The patient and health care provider should discuss the patient history and decide if earlier screening and breast MRI are appropriate. A result letter has been sent to this patient by [facility]. BIRADS CATEGORY 1: NEGATIVE Lynda Chua MD IMG MAMMO ORDERABLES documented in this encounter Visit Diagnoses Diagnosis Encounter for routine history and physical exam in female patient documented in this encounter Care Teams Student Dean Relationship Specialty Start Date End Date Lynda Chua MD [address] [place] [address] PCP - General Family Medicine 04/15/16 04/15/21 documented as of this encounter
--- OUTSIDE RECORDS SUMMARY | 2024-05-20 18:20 | XMS_ITS | Encounter Summary ---
Author Organization [facility] [place] [address] Care Team Providers Care Casting Cleaner Name Role Phone Live ESCAMILLA MD, Zachary Menard Primary Care Provider Encounter Details Date Type Department Care Team (Late st Contact Info) Description 03/12/2013 Orders Only Radiology [facility] [place] [id number] Zuleima Zepeda MD [address] [place] [address] [place], [place] [id number] Social History Tobacco Use Types Packs/Day Years Used Date Smoking Tobacco: Never Assessed Sex and Gender Information Value Date Recorded Sex Assigned at Not on file Gender Identity Not on file Sexual Orientation Not on file documented as of this encounter Plan of Treatment Not on file documented as of this encounter Procedures Procedure Name Priority Date/Time Associated Diagnosis Comments REQUEST FOR 2ND READ MAMMO Routine 03/12/2013 10:05 AM EDT documented in this encounter Results * Request for 2nd read Mammo (03/12/2013 10:05 AM EDT) Anatomical Region Laterality Modality Other 03/12/2013 10:0 5 AM EDT Narrative 03/16/2013 12:31 PM EDT INTERPRETATION OF OUTSIDE MAMMOGRAMS (PERFORMED ON 02/05/13 AND 02/02/13) FROM [facility] DATED 03/15/13: ?? DIAGNOSTIC IMAGING SUMMARY: ?? LEFT BREAST LESION 1: INCOMPLETE (BIRADS Category 0). ?? Finding: Focal asymmetry. ?? Size: 7mm. ?? Location: Deep central mid Left breast in the retroareolar line, 5.5cm from the nipple. ?? Recommendation: Additional mammographic images including Left ML. Repeat ultrasound at the discretion of the radiologist. Given that ultrasound is somewhat compress machine operator dependent and benefits from real-time imaging, a repeat ultrasound of the Left breast may be helpful for further evaluation. ? RIGHT BREAST: This is a (BIRADS Category 1) NEGATIVE Right mammogram. The next Right mammogram is recommended in one year. ?? NARRATIVE: ?? CLINICAL INDICATION: I have been asked to consult on this patient by Dr. Zuleima Zepeda because she believes a review of this study may change or alter the care of this patient. ?? TECHNIQUE: Bilateral mammogram dated 02/02/13 with additional views of the Left breast dated 02/05/13 and comparisons dated 11/11/11, 11/06/11, 03/20/10 and 01/29/08 are reviewed. Report of an outside ultrasound of the Left breast dated 02/05/13 is reviewed. ?? FINDINGS: ? LEFT BREAST: This is a (BIRADS Category 0) INCOMPLETE Left breast for a 7mm focal asymmetry in the deep central retroareolar Left breast, 5.5cm from the nipple. By report, targeted ultrasound of the Left breast to the area of focal asymmetry shows no sonographic abnormality. ? RIGHT BREAST: This is (BIRADS Category 1) NEGATIVE Right mammogram. There is an unremarkable fibroglandular pattern in the Right breast, stable compared to prior studies. ?? The breasts are of scattered density. ?? Procedure Note Shantelle Shields MD - 03/16/2013 INTERPRETATION OF OUTSIDE MAMMOGRAMS (PERFORMED ON 02/05/13 AND 02/02/13)FROM [facility] DATED 03/15/13: DIAGNOSTIC IMAGING SUMMARY: LEFT BREAST LESION 1: INCOMPLETE (BIRADS Category 0). Finding: Focal asymmetry. Size: 7mm. Location: Deep central mid Left breast in the retroareolar line, 5.5cmfrom the nipple. Recommendation: Additional mammographic images including Left ML. Repeat ultrasound at the discretion of the radiologist. Given that ultrasound is somewhat compress machine operator dependent and benefits from real-time imaging, a repeat ultrasound of the Left breast may be helpful for further evaluation. RIGHT BREAST: This is a (BIRADS Category 1) NEGATIVE Right mammogram. Thenext Right mammogram is recommended in one year. NARRATIVE: CLINICAL INDICATION: I have been asked to consult on this patient by Dr.Mary Zepeda because she believes a review of this study may change or alter thecare of this patient. TECHNIQUE: Bilateral mammogram dated 02/02/13 with additional views of theLeft breast dated 02/05/13 and comparisons dated 11/11/11, 11/06/11, 03/20/10 and01/29/08 are reviewed. Report of an outside ultrasound of the Left breast dated02/05/13 is reviewed. FINDINGS: LEFT BREAST: This is a (BIRADS Category 0) INCOMPLETE Left breast for a7mm focal asymmetry in the deep central retroareolar Left breast, 5.5cm fromthe nipple. By report, targeted ultrasound of the Left breast to the area offocal asymmetry shows no sonographic abnormality. RIGHT BREAST: This is (BIRADS Category 1) NEGATIVE Right mammogram. Thereis an unremarkable fibroglandular pattern in the Right breast, stable comparedto prior studies. The breasts are of scattered density. Zuleima Zepeda MD IMG OUTSIDE INTERPRE TATION ORDERABLES documented in this encounter Visit Diagnoses Not on filedocumented in this encounter Care Teams Casting Cleaner Relationship Specialty Start Date End Date Zachary Mancini III, MD [address] [address] PCP - General 08/07/10 03/16/13 documented as of this encounter
--- OUTSIDE RECORDS SUMMARY | 2024-05-20 18:20 | XMS_ITS | Clinical Summary ---
Author Organization [facility] [place] [address] Care Team Providers Care Truck Chauffeur Name Role Phone Jewel Figueroa Primary Care Provider [phone] Family History Medical History Relation Comments Breast Cancer Neg Hx Social History Tobacco Use Types Packs/Day Years Used Date Smoking Tobacco: Never Assessed Sex and Gender Information Value Date Recorded Sex Assigned at Not on file Gender Identity Not on file Sexual Orientation Not on file Plan of Treatment Health Maintenance Due Date Last Done Comments CT Colonography 1958 Colonoscopy 1958 Colorectal Cancer Screening 1958 FIT DNA 1958 FIT 1958 Sigmoidoscopy (10 year) with FIT yearly 1958 Sigmoidoscopy 1958 HIV screen 1976 Hepatitis C Screening 1976 Tdap adult 1977 Tetanus vaccine 1977 HPV test 1988 PAP Smear 1988 Breast Cancer Share Decision Needed 1998 Zoster vaccine (1 of 2) 2008 Advance Directive 2013 Covid-19 Vaccine ( - 2022-2 4 season) 2023 Pneumoccocal Vaccine: 65+ (1 of 1 - PCV) 2023 Influenza (Flu) vaccine (1 o f 1 - Influenza standard series) 05/16/2024 Breast Cancer screening 05/30/2025 05/30/20, 01/09/2022, 11/23/2018, Additional history exists Bone Density Scan 11/07/2029 11/07/2014 Procedures Procedure Name Priority Date/Time Associated Diagnosis Comments MAMMO SCREENING CAD AND CARISA BILATERAL Routine 05/30/2023 2:42 PM EDT Encounter for screening mammogram for breast cancer DXA CENTRAL SPINE, HIP, AND/OR WHOLE BODY (GENERIC) Routine 11/07/2014 10:52 AM EST from Last 3 Months or Most Recently Relevant to Health Maintenance Results * Mammo Screening Cad and Carisa [...] who have questions please contact the health customer care associate that requested your imaging first. ? Narrative 06/02/2023 7:06 AM EDT EXAMINATION: MAMMO [...] appearance. Jewel EVERETT IMG MAMMO ORDERABL ES * Dexa central-spine, hip, and/or whole body [...] BMD measurements and plots are available in [employer] under the imaging tab. Paper copies will be sent to providers without [employer] access. If you have received this report without the data sheet and do not have access to [employer], please contact Radiology Community Services Officer at [phone] Friday thru Friday 8am-4pm. Narrative 11/10/2014 11:08 [...] copies will be sent to providers without [employer] access.If you have received this report without the data sheet and do not haveaccess to [employer], please contact Radiology Community Services Officer at [phone] Friday thruFriday 8am-4pm. Jewel EVERETT IMG DEXA ORDERABLE S from Last 3 Months or Most Recently Relevant to Health Maintenance Care Teams Truck Chauffeur Relationship Specialty Start Date End Date Jewel Figueroa PA [address] [place] [address] PCP - General Family Medicine 04/16/21
--- OUTSIDE RECORDS SUMMARY | 2024-05-20 18:20 | XMS_ITS | Encounter Summary ---
Author Organization [facility] [place] [address] Care Team Providers Care Vp Strategy Name Role Phone Jewel Figueroa Primary Care Provider [phone]- [phone] Encounter Details Date Type Department Care Team (Latest Contact Info) Description 05/21/2022 3:05 PM EDT - 05/21/2022 11:59 PM EDT Hospital En[place] [address] Angelia Birch MD [facility] [place] [address] Abnormal finding on breast imaging Discharge Disposition: [...] Diagnosis Comments MAMMO US AXILLA RIGHT Routine 05/21/2022 3:28 PM EDT Abnormal finding on breast imaging documented in this encounter Results * Mammo US Axilla Right (05/21/2022 3:28 PM EDT) Anatomical Region Laterality Modality Breast Right Mammography Impressions 05/21/2022 3:53 PM EDT No suspicious axillary lymphadenopathy. RECOMMENDATION: BI-RADS Category 1: Negative * ??Resume annual screening mammography. Regular screening mammograms starting between age 40 and 50 reduces the risk of from breast cancer. * ??All screening tests have both risks and benefits. These risks and benefits should be assessed for each individual patient through discussion with their provider to determine their preferred breast cancer screening schedule. * ??Women should report any breast changes to a health care provider right away. * ??Some women, because of their family history, a genetic tendency, or other factors, should be screened with annual breast MRI as well as with mammograms. (The number of women who fall into this category is very small). Patients and health care providers should discuss the history of each patient to decide if earlier screening and/or breast MRI are appropriate. * ??Screening should continue as long as a woman is in good health and is expected to live 10 years or longer. * ??Screening mammography may not detect 10-15% of breast cancers. I have personally reviewed the image(s) and the resident's interpretation and agree with the findings, Maryam Jenkins MD at 05/21/2022 3:53 PM Thank you for letting us participate in the care of this patient. ??If you are a health care provider and have any questions regarding this report, please contact the number below. ??For patients who have questions please contact the health hearing care practitioner that requested your imaging first. ? Electronically signed by: Maryam Jenkins MD, [facility] ([phone]), at 05/21/2022 3:53 PM Narrative 05/21/2022 3:53 PM EDT EXAMINATION: MAMMO US AXILLA RIGHT CLINICAL HISTORY: 4 month f/u TECHNIQUE: High-resolution ultrasound imaging of the RIGHT axilla was obtained. Color-flow spectral Doppler imaging was performed. COMPARISON: RIGHT axillary ultrasound 01/14/2022 FINDINGS: Interval decreased prominence of RIGHT axillary lymphadenopathy with multiple normal-appearing RIGHT axillary lymph note, with cortical thickness previously measuring 0.5 cm, now measures 0.3 cm. Angelia Birch MD IMG MAMMO ORDERABL ES documented in this encounter Visit Diagnoses Diagnosis Abnormal finding on breast imaging Other (abnormal) findings on radiological examination of breast documented in this encounter Care Teams Vp Strategy Relationship Specialty Start Date End Date Jewel Figueroa PA [address] [place] [address] PCP - General Family Medicine 04/16/21 documented as of this encounter
--- OUTSIDE RECORDS SUMMARY | 2024-05-20 18:20 | XMS_ITS | Encounter Summary ---
Author Organization [facility] [place] [address] Care Team Providers Care Fifth Hand Name Role Phone Unavailable Primary Care Provider Unavailabl e Encounter Details Date Type Department Care Team (Latest Contact Info) Description 11/15/2014 2:48 PM EST - 11/15/2014 11:59 PM EST Hospital Encounter Mammography at [facility] [place] [address] Abnormal mammogram, unspecified Social History Tobacco Use [...] Name Priority Date/Time Associated Diagnosis Comments MAMMO BREAST US LIMITED Routine 11/15/2014 3:44 PM EST Abnormal mammogram, unspecified documented in this encounter Results * Mammo Breast Ultrasound [...]
== END 2024-05-20 18:17 | disposition home or self-care (01) ==
LOC: NCHCN 18:16
PROVIDERS: PCP Physician Assistant Medical; Visit Provider Nurse Practitioner Family
DX: R30.0 Dysuria (principal)
CPT/HCPCS: 87077; 87086; 87186

== ENCOUNTER 2025-01-05 17:33 | Outpatient (REF) | payer MEDICARE, SELFPAY ==
[2025-01-05 20:56] LABS: Abs Immature Grans 0.03 10^3/uL (0.0-0.06); Absolute Basophil Count 0.06 10^3/uL (0.0-0.2); Absolute Eosinophil Count 0.16 10^3/uL (0.0-0.7); Absolute Lymphocyte Count 2.14 10^3/uL (1.2-3.4); Absolute Neutrophil Count 5.29 10^3/uL (1.2-6.7); Basophils % 0.7 %; Immature Grans % 0.4 %; Lymphocytes % 26.2 %; MCH 30.7 pg (27.0-33.0); MCHC 33.3 % (32.0-36.0); MCV 92 fL (80-95); MPV 10.6 fL (8.0-11.0); Monocytes % 6.1 %; Neutrophils % 64.6 %; Platelet Count 331 10^3/uL (130-400); RBC 4.23 10^6/uL (3.93-5.22); RDW 13.8 % (11.7-14.6); RDW-SD 46.8 fL; WBC 8.18 10^3/uL (4.4-10.8)
[2025-01-05 21:09] LABS: ALT 29 U/L (14-59); AST 20 U/L (15-37); Albumin 3.9 g/dL (3.4-5.0); Alkaline Phosphatase 97 U/L (46-116); Anion Gap 6.3 mmol/L (3-11); BUN 23 mg/dL (7-18); Bilirubin, Total 0.2 mg/dL (0.2-1.0); CO2 32.7 mmol/L (21.0-32.0); Calcium 9.9 mg/dL (8.5-10.1); Chloride 104 mmol/L (98-107); Estimated GFR 62.13 (mL/min/1.73m2); Glucose 172 mg/dL (74-106); Potassium 3.9 mmol/L (3.5-5.1); Sodium 143 mmol/L (136-145); Total Protein 7.1 g/dL (6.4-8.2)
[2025-01-05 21:26] LABS: Calculated LDL 74 mg/dL (<100); Cholesterol 165 mg/dL (<200); HDL Cholesterol 54 mg/dL (>or=50); Triglyceride 188 mg/dL (<150)
[2025-01-05 21:50] LABS: Hemoglobin A1C 5.8 % (<5.7)
== END 2025-01-05 17:34 | disposition home or self-care (01) ==
LOC: NCHCN 17:33
PROVIDERS: PCP Physician Assistant Medical; Visit Provider Physician Assistant Medical
DX: I10 Essential (primary) hypertension (principal); R73.03 Prediabetes
CPT/HCPCS: 80053; 80061; 83036; 85025

== ENCOUNTER 2025-02-13 11:17 | Emergency (ER) | payer MEDICARE, SELFPAY ==
--- NOTE | 2025-02-13 11:15 | RT.EKG_ITS ---
APPROVED REPORT Exam: Resting ECG Reason for Exam: Syncopal episode yesterday. Patient Location: E HR:103 bpm ECG Measurements Heart Rate 103 AXIS VA 160 P 77 QRSd 73 QRS 24 QT 334 T 54 QTc 439 Conclusion Sinus tachycardia, rate 103 No interval abnormalities No STEMI Compared to priors, no significant changes other than rate.
[2025-02-13 11:21] VITALS: BP 123/77; PULSE 118; RESP 18; TEMP 37.4; O2SAT 96
--- NOTE | 2025-02-13 11:45 | DI.CT_ITS ---
Exam(s) CT ABDOMEN PELVIS W EXAM: CT ABDOMEN PELVIS W CLINICAL HISTORY: Lower b/l abd pain. TECHNIQUE: Imaging Protocol: Axial computed tomography images with coronal and sagittal reformatted images were created and reviewed CONTRAST MATERIAL: Intravenous: Omnipaque-350 75cc Oral: None COMPARISON: CT CT THORAX ABD/PEL CTA from 12/18/2023 FINDINGS: VISUALIZED LUNG BASES: No nodules nor pleural effusions evident. ABDOMEN: There is no ascites. LIVER: There few benign cysts in the liver again noted, the largest measuring 1.4 cm, unchanged. The re are no solid focal liver lesions. However, there is some dilatation of intrahepatic ducts as well as the CBD, CBD measuring up to 2.0 cm. Gallbladder surgically absent. GALLBLADDER/BILIARY: Gallbladder surgically absent. CBD is dilated up to 2 cm. There is no obvious calculus in CBD nor mass in the CBD and duodenal wall nor in the pancreatic head. PANCREAS: No evidence of pancreatic mass nor dilatation of the pancreatic duct. SPLEEN: Spleen size is normal. There is some capsular calcification on the lateral aspect of the spl een again noted. No significant splenic lesions. Splenic and portal veins are patent. ADRENALS: There are no significant adrenal masses. KIDNEYS:No cysts evident. No solid renal masses. No calculi nor hydronephrosis.. ABDOMINAL AORTA: Abdominal aorta is not enlarged. LYMPH NODES:There is no retroperitoneal nor paraaortic adenopathy. ABDOMINAL WALL: No evidence of significant anterior abdominal wall nor inguinal hernia. GI: There is abnormal appearance of the left side of the colon from the level of the splenic flexure down to the upper sigmoid. There is abnormal circumferential edema-thickening of the wall of the col on measuring up to 9 mm thickness over significantly to the left side of the colon consistent with co litis pattern. There does not appear to be obvious diverticular disease at this level. There is mil d dilatation of the colon proximal to this level. The mid-lower sigmoid appears unremarkable. PELVIS: GI: No evidence of appendicitis.No evidence of sigmoid diverticulitis. LYMPH NODES: There is no intrapelvic nor inguinal adenopathy. REPRODUCTIVE: Uterus is surgically absent. There are no abnormal adnexal masses nor free fluid in th e pelvis. URINARY BLADDER: There is diffuse thickening of the urinary bladder wall but this may be related to u nder distension here. OSSEOUS: No fractures and no significant osseous lesions. IMPRESSION: 1. There is abnormal circumferential edema-thickening of the entire colon wall for a distance of appr oximately 16 cm in left side of the colon starting at the level of the splenic flexure and extending down into the upper sigmoid. The mid-lower sigmoid it is not involved. Appearance is that of coliti s. There are no obvious diverticuli. Also cannot exclude ischemic colitis given the distribution al though the inferior mesenteric artery is noted to be patent, as is the superior mesenteric artery and celiac artery. First consideration is for colitis but cannot exclude neoplastic involvement, includ ing lymphoma. 2. Again noted is evidence of previous cholecystectomy and hysterectomy. The CBD diameter is again n oted be enlarged measuring up to 2 cm. There does not appear to be a radiopaque calculus in the lowe r CBD nor obvious mass in the lower CBD and duodenal junction nor pancreatic head mass. Correlation with appropriate blood work is recommended. The amount of dilatation biliary tree is more than expec sandrita in a post cholecystectomy patient. 3. Stable benign-appearing small liver cysts 4. Some peripheral capsular calcification in lateral aspect of the spleen is again noted. No splenom egaly. Report by myself to ER physician 02/13/2025 at 2:30 p.m. RADIATION DOSE DELIVERED: 427.2mGy.cm Total DLP DATA REPOSITORY: All CT scans at this facility are submitted to the National Radiology Data Registry (NRDR) Dose Index Registry (DIR) with the [employer] (ACR). RADIATION OPTIMIZATION: All CT scans at this facility use at least one of these dose optimization te chniques: automated exposure control; mA and/or kV adjustment per patient size (includes targeted exa ms where dose is matched to clinical indication); or iterative reconstruction.
[2025-02-13 12:29] LABS: Abs Immature Grans 0.04 10^3/uL (0.0-0.06); Absolute Basophil Count 0.05 10^3/uL (0.0-0.2); Absolute Eosinophil Count 0.06 10^3/uL (0.0-0.7); Absolute Lymphocyte Count 1.47 10^3/uL (1.2-3.4); Absolute Monocyte Count 0.96 10^3/uL (0.1-0.8); Absolute Neutrophil Count 10.33 10^3/uL (1.2-6.7); Basophils % 0.4 %; Eosinophils % 0.5 %; HCT 42.1 % (36.0-46.0); HGB 14.7 g/dL (11.2-15.7); Immature Grans % 0.3 %; Lymphocytes % 11.4 %; MCH 30.8 pg (27.0-33.0); MCHC 34.9 % (32.0-36.0); MCV 88 fL (80-95); MPV 9.6 fL (8.0-11.0); Monocytes % 7.4 %; Platelet Count 380 10^3/uL (130-400); RBC 4.78 10^6/uL (3.93-5.22); WBC 12.91 10^3/uL (4.4-10.8)
[2025-02-13 12:40] VITALS: BP 123/77; PULSE 118; RESP 18; TEMP 37.4; O2SAT 96
[2025-02-13 12:43] LABS: ALT 21 U/L (14-59); AST 15 U/L (15-37); Alkaline Phosphatase 86 U/L (46-116); BUN 12 mg/dL (7-18); Bilirubin, Total 0.6 mg/dL (0.2-1.0); Calcium 9.9 mg/dL (8.5-10.1); Chloride 98 mmol/L (98-107); Estimated GFR 62.13 (mL/min/1.73m2); Glucose 126 mg/dL (74-106); Lipase 26 U/L (<78); Magnesium 1.8 mg/dL (1.8-2.4); Potassium 3.1 mmol/L (3.5-5.1); Sodium 140 mmol/L (136-145); Total Protein 7.4 g/dL (6.4-8.2); Troponin I 12 ng/L (<or=51)
--- NOTE | 2025-02-13 12:58 | ED.GENADUL_ITS ---
Discharge Plan Disposition Patient Disposition: Home Condition: Stable Discharge Details Clinical Impression: Colitis Primary Care Provider: Jewel Figueroa ED Provider: Namita Al Home Meds and New Rx's Prescriptions: New ondansetron 4 mg tablet,disintegrating 4 mg PO Q8H PRNQty: 10 0RF No Action glucosamine-chondroitin 900 mg tablet 500 mg PO DAILY lisinopril-hydrochlorothiazide 10-12.5 mg tablet 1 tab PO DAILY Glucos Chond Cplx Advanced 750 mg-100 mg- 125 mg-1.65 mg tablet 2 tab PO DAILY liraglutide [Victoza 2-Vijay] 0.6 mg/0.1 mL (18 mg/3 mL) pen injector 1.2 mg subcut DAILY furosemide [Lasix] 20 mg tablet 20 mg PO DAILY Patient Comments: PRN for foot swelling, has never taken pantoprazole [Protonix] 40 mg tablet,delayed release (DR/EC) 40 mg PO DAILY Qty: 90 0RF Discharge Instructions Instructions: Colitis (DC) Additional Instructions: You were seen in the emergency department today for evaluation of abdominal pain and loose stools. In our department, you had a full physical examination performed, had laboratory studies that were reassuring, though your potassium is slightly low. We did provide you with a potassium pill here in the emergency department, and you can increase your dietary potassium by eating foods such as bananas and potatoes. Your CT scan shows some inflammation in your large intestine, a condition known as colitis. For most people, this is an infectious condition, and can be caused by viruses or bacteria. Your blood vessels look safe and healthy and we are not concerned that your colon is not getting enough oxygen. It is important that you maintain good hydration, and can trial the brat diet (bananas, rice, apples, toast) to maintain good nutrition while your body heals. You need to follow-up with your primary care provider for reassessment in the next few days to ensure that you are improving rather than worsening. Reasons to come back to the emergency department include fever or chills, sudden change or worsening of your abdominal pain, or if your stools transition to bloody. Thank you for allowing us to be part of your care. HPI General Mode of arrival: ambulatory . Date/Time Provider Initiated Documentation: 02/13/25 11:40 . Limitations to Documentation: no limitations . Information obtained by: patient and old records reviewed . HPI Narrative: This is a 64-year-old female patient with a past medical history significant for hypertension and kidney stones presenting for evaluation of lower abdominal pain. She reports that this pain started around 230 yesterday, felt like a cramping in her bilateral lower abdomen. She states that she went to the bathroom, and was attempting to have a bowel movement. She reports that she had a loss of consciousness, did not fall or sustain trauma, states that afterwards she laid down and had improvement in her symptoms, but over the night has had waxing and waning cramping-like lower abdominal pain. She states that she has not noted any blood in her stool, but did have two loose stools, and has not had pain during urination. She has not noted any vaginal discharge or postmenopausal bleeding. She has not had a fever, has been tolerating oral intake including maintaining her hydration. Has a history of cholecystectomy but otherwise no abdominal surgeries. Related Data Home Medications ?Medication ?Instructions ?Recorded ?Confirmed [id number] 2 tab PO DAILY 12/14/18 02/13/25 750 mg-100 mg-125 mg-1.65 mg tablet (Glucosamine Chondroit Complx Advan) lisinopril 10 1 tab PO DAILY 12/14/18 02/13/25 mg-hydrochlorothiazide 12.5 mg tablet antiarthritic combination no.2 900 500 mg PO DAILY 01/25/19 02/13/25 mg tablet (glucosamine-chondroitin) liraglutide 0.6 mg/0.1 mL (18 mg/3 1.2 mg subcut DAILY 12/18/23 02/13/25 mL) subcutaneous pen injector (Victoza 2-Vijay) furosemide 20 mg tablet (Lasix) 20 mg PO DAILY 12/19/23 02/13/25 pantoprazole 40 mg tablet,delayed 40 mg PO DAILY #90 tabs 12/19/23 02/13/25 release (Protonix) ondansetron 4 mg disintegrating 4 mg PO Q8H PRN #10 tabs 02/13/25 tablet Previous Rx's ?Medication ?Instructions ?Recorded pantoprazole 40 mg tablet,delayed 40 mg PO DAILY #90 tabs 12/19/23 release (Protonix) ondansetron 4 mg disintegrating 4 mg PO Q8H PRN #10 tabs 02/13/25 tablet Allergies Allergy/AdvReac Type Severity Reaction Status Date / Time amoxicillin Allergy Severe Swelling/Ed Verified 02/13/25 11:28 jorge Cephalosporins Allergy Severe unknown Verified 02/13/25 11:28 Penicillins Allergy Mild unknown Verified 02/13/25 11:28 General Stated Complaint: Abd Prob STEVE: 3 Exam Narrative Exam Narrative: Gen: Awake and alert, in no apparent distress HEENT: Non-icteric sclera Neck: Supple Lungs: No apparent respiratory distress, normal respiratory effort. CV: Appears well perfused, strong distal pulses Abdomen: Non-distended, soft, tender to palpation in the lower abdomen without rigidity, rebound, or guarding. No overlying skin changes MSK: Moves 4 extremities without apparent limitation in ROM Skin: Visualized skin without rashes, cyanosis. Neuro: Normal Gait, no obvious focal deficits or facial asymmetry. Speaks in full, clear sentences. Psych: Appropriate for situation. Course Vital Signs Vital signs: Vital Signs Temperature 37.4 C 02/13/25 11:21 Pulse 118 H 02/13/25 11:21 Respiratory Rate 18 02/13/25 11:21 Blood Pressure 123/77 02/13/25 11:21 Pulse Oximetry 96 02/13/25 11:21 Temperature 37.4 C 02/13/25 12:40 Temperature Source Oral 02/13/25 11:21 Pulse 118 H 02/13/25 12:40 Respiratory Rate 18 02/13/25 12:40 Blood Pressure 123/77 02/13/25 12:40 Blood Pressure Position Sitting 02/13/25 11:21 Pulse Oximetry 96 02/13/25 12:40 Oxygen Delivery Method Room Air 02/13/25 12:40 Oxygen Flow Rate 0 02/13/25 11:21 Pain Level 6 02/13/25 12:40 Lab/Test Results Lab/Test Results: Laboratory Tests Range/Units 02/13/25 12:15 WBC (4.4-10.8) 10^3/uL 12.91 H RBC (3.93-5.22) 10^6/uL 4.78 Hgb (11.2-15.7) g/dL 14.7 Hct (36.0-46.0) % 42.1 MCV (80-95) fL 88 MCH (27.0-33.0) pg 30.8 MCHC (32.0-36.0) % 34.9 RDW (11.7-14.6) % 13.0 Plt Count (130-400) 10^3/uL 380 MPV (8.0-11.0) fL 9.6 Immature Gran % % 0.3 Neutrophils % % 80.0 Lymphocytes % % 11.4 Monocytes % % 7.4 Eosinophils % % 0.5 Basophils % % 0.4 Nucleated RBC % (0.0-0.3) % 0.0 Absolute Neutrophils (1.2-6.7) 10^3/uL 10.33 H Absolute Lymphocytes (1.2-3.4) 10^3/uL 1.47 Absolute Monocytes (0.1-0.8) 10^3/uL 0.96 H Absolute Eosinophils (0.0-0.7) 10^3/uL 0.06 Absolute Basophils (0.0-0.2) 10^3/uL 0.05 Sodium (136-145) mmol/L 140 Potassium (3.5-5.1) mmol/L 3.1 L Chloride (98-107) mmol/L 98 Carbon Dioxide (21.0-32.0) mmol/L 31.0 Anion Gap (3-11) mmol/L 11.0 BUN (7-18) mg/dL 12 Creatinine (0.55-1.02) mg/dL 1.0 Est GFR (CKD-EPI 2020) (mL/min/1.73m2) 62.13 Glucose (74-106) mg/dL 126 H Calcium (8.5-10.1) mg/dL 9.9 Magnesium (1.8-2.4) mg/dL 1.8 Total Bilirubin (0.2-1.0) mg/dL 0.6 AST (15-37) U/L 15 ALT (14-59) U/L 21 Alkaline Phosphatase (46-116) U/L 86 Troponin I (<or=51) ng/L 12 Total Protein (6.4-8.2) g/dL 7.4 Albumin (3.4-5.0) g/dL 4.0 Lipase (<78) U/L 26 Medical Decision Making This is a 64-year-old female patient presenting for evaluation of abdominal pain. My differential includes but is not limited to diverticulitis, appendicitis, urinary tract infection, renal stones, considered bowel obstruction. Considered upper abdominal conditions including pancreatitis, hepatitis, cholecystitis, gastritis, gastroenteritis, though these are less consistent with the patient's history and physical examination. Considered metabolic and arthritic derangements, kidney injury. No chest pain to suggest ACS. Exam and history less concerning for mesenteric ischemia or aortic pathology. Will obtain laboratory studies to include CBC, CMP, magnesium, troponin, urinalysis, and lipase. -I independently interpreted the laboratory studies, which show no significant leukocytosis, anemia, or thrombocytopenia. The chemistry panel is without essie dence of electrolyte abnormality, kidney dysfunction, or liver injury other than a slightly low potassium to 3.1, which will be repleted orally. Lipase is low, and initial troponin is negative. Her 1 hour repeat troponin is without interval change, making active ischemia highly unlikely. I reviewed the patient's CT scan, and discussed the findings with the radiologist. She does have thickening of her colon without evidence of diverticulitis, abscess, or perforation, concerning for colitis. Her vessels appear patent, and she did have a CTA performed in December that did not show any vascular abnormalities to significantly increase my concern for mesenteric ischemia. I did obtain a lactate as a precaution, this was not elevated at 0.9. On repeat review of her history, the patient has not been on any antibiotics recently, had travel or exposure to unsanitary water sources, and has not had liquidy stool nor she had increased risk of C. difficile. I am most concerned for infectious colitis in this patient without a prior diagnosis of autoimmune colitis, and with a reassuring ischemic colitis workup. The patient tolerated oral intake in the emergency department, has controlled pain and is hemodynamically appropriate. I feel that it is appropriate for trial of outpatient management, and counseled her on adequate hydration, bland diet, and Tylenol/ibuprofen as needed for management of her pain. I recommended that she follow-up with her primary care provider in the next few days for reassessment, and had an extended conversation with her regarding return precautions. At this time, the patient has had a full medical evaluation and is safe for discharge to home. They are hemodynamically stable, ambulatory, and tolerating PO. They are understanding of the follow-up plan and return precautions. They left our facility without incident. Namita Al MD Medical Records Medical records reviewed: Yes I reviewed the patient's medical records. Lab Data Lab results reviewed: Yes I reviewed the patient's lab results. Quality:SDOH Health Related Social Needs: No Data to Display PFSH All Active Problems (Updated 02/13/25 @ 14:51 by Namita Al MD) Colitis (Acute) HTN (hypertension) (Chronic) Gastroenteritis (Acute) Kidney stone on right side (Acute) Hepatic cyst (Acute) S/P colonoscopy (Acute ~02/22/19) 2009- Encounter for screening colonoscopy (Acute) Medical History Hypertension Surgical History History of partial hysterectomy H/O section Hx of cholecystectomy History of colonoscopy Family History Other COPD (chronic obstructive pulmonary disease) Diabetes Heart disease Social History Smoking/Tobacco Use Status: Former Tobacco Use Smoking risk assessment performed?: Yes Alcohol Intake: current Alcohol Intake frequency: a few times a month Alcohol type: wine Drug use: Never Substance use type: does not use Housing: house Do you feel safe at home: Yes Do you feel safe in your relationship?: Yes
[2025-02-13 13:09] LABS: Bilirubin Negative (Negative); Blood Trace-intact (Negative); Clarity Clear (Clear); Glucose Negative (Negative); Ketones 40 mg/dL (Negative); Leukocyte Esterase Negative (Negative); Nitrite Negative (Negative); Specific Gravity 1.015 (1.005-1.025)
[2025-02-13] MEDS: Omnipaque 350 MG/ML 100 ML BTL 75 ML IJ (13:13)
[2025-02-13] MEDS: Normal Saline - Diluent 50 ML VIAL IJ (13:13)
[2025-02-13 13:19] LABS: Bacteria Rare HPF (Negative); C & S Indicated? No; Casts Negative LPF (Negative); Crystals Negative HPF (Negative); Epithelial Cells Rare HPF (Negative); Mucus Trace (Negative); WBC 0-2 HPF (0-5)
[2025-02-13 13:30] LABS: Troponin I 12 ng/L (<or=51)
[2025-02-13] MEDS: Potassium Chloride 20 MEQ TABCR 40 MEQ PO (13:33)
--- NOTE | 2025-02-13 14:37 | DI.VRAD_ITS ---
Addendum created by Derek Pollock MD on 02/13/2025 2:46:39 PM EDT: Addendum: There is a 2 mm nonobstructing calcification in the inferior pole of the right kidney. Initial report created on 02/13/2025 2:36:44 PM EDT: PROCEDURE INFORMATION: Exam: CT Abdomen And Pelvis With Contrast Exam date and time: 02/13/2025 1:11 PM Age: 64 years old Clinical indication: Abdominal pain TECHNIQUE: Imaging protocol: Computed tomography of the abdomen and pelvis with contrast. Contrast material: OMNIPAQUE 350; Contrast volume: 75 ml; Contrast route: INTRAVENOUS (IV); COMPARISON: No relevant prior studies available. FINDINGS: Lungs: There is very minimal dependent atelectasis in both lung bases. Heart: The heart is not enlarged. Liver: There is redemonstration of multiple low-density lesions in the liver consistent with cysts. The largest measures 19 mm in the inferior right hepatic lobe. Gallbladder and biliary ducts: There has been a prior cholecystectomy. Since the prior examination of September 18, 2020 there is new mild intrahepatic biliary dilatation. The extrahepatic common duct measures up to 16 mm. No obvious common duct stones are evident. Pancreas: The pancreas shows no mass or inflammatory process. Spleen: The spleen is not enlarged. No focal lesion. Adrenal glands: The adrenal glands are unremarkable. Kidneys and ureters: The kidneys are unobstructed. Both contain subcentimeter cysts that are too small to accurately characterize but are likely cysts and unchanged. Stomach and bowel: There is a small hiatal hernia. There is no small bowel obstruction. There is diffuse abnormal thickening of the descending colon from the splenic flexure to the sigmoid colon. This likely represents a area of colitis. No mass lesion or mechanical obstruction is evident. There is mild surrounding stranding. No diverticula are evident in this area. Appendix: The appendix is normal Intraperitoneal space: No free air or free fluid Vasculature: The abdominal aorta is of normal caliber. Lymph nodes: No abnormal para-aortic adenopathy. Urinary bladder: The bladder is decompressed. No filling defects identified. Reproductive: There has been a prior hysterectomy. Bones/joints: There are mild diffuse degenerative changes of the lumbar spine without acute bony change. Soft tissues: There is subtle increased soft tissue density in the right perineum which may represent inflammation. (series 8, image 101), No abscess identified. Clinical correlation is needed . IMPRESSION: 1. Diffuse abnormal thickening of the descending colon from the splenic flexure to the sigmoid colon with surrounding inflammatory change consistent with colitis. No abscess or perforation identified. 2. Questionable small focus of inflammation in the right perineum between the anus and vagina. Clinical correlation is needed. 3. Prior cholecystectomy with mild interval increase in intrahepatic and extrahepatic biliary dilatation. No common duct stones identified. Dictated and Authenticated by: Derek Pollock MD. Orderin WoodsonAmado Breaux MD
[2025-02-13 14:43] LABS: Lactate 0.9 mmol/L (<or=2.0)
== END 2025-02-13 15:03 | disposition home or self-care (01) ==
PROVIDERS: Emergency Provider Emergency Medicine; PCP Physician Assistant Medical
DX: K52.9 Noninfective gastroenteritis and colitis, unspecified (principal); R00.0 Tachycardia, unspecified; I10 Essential (primary) hypertension; Z90.49 Acquired absence of other specified parts of digestive tract; Z90.710 Acquired absence of both cervix and uterus; Z87.891 Personal history of nicotine dependence
CPT/HCPCS: 36415; 80053; 83690; 93005; 99285; 74177; 81003; 81015; 83605; 83735; 84484; 85025; 93010; J3490

== ENCOUNTER 2025-02-23 18:39 | Outpatient (REF) | payer MEDICARE, SELFPAY ==
[2025-02-23 21:29] LABS: Anion Gap 6.9 mmol/L (3-11); BUN 18 mg/dL (7-18); CO2 31.1 mmol/L (21.0-32.0); CREATININE 0.8 mg/dL (0.55-1.02); Calcium 9.7 mg/dL (8.5-10.1); Chloride 103 mmol/L (98-107); Estimated GFR 81.21 (mL/min/1.73m2); Glucose 110 mg/dL (74-106); Potassium 4.3 mmol/L (3.5-5.1); Sodium 141 mmol/L (136-145)
== END 2025-02-23 18:40 | disposition home or self-care (01) ==
LOC: NCHCN 18:39
PROVIDERS: PCP Physician Assistant Medical; Visit Provider Physician Assistant Medical
DX: E87.6 Hypokalemia (principal)
CPT/HCPCS: 80048; 83735

== ENCOUNTER 2025-06-07 19:37 | Outpatient (REF) | payer MEDICARE, SELFPAY ==
[2025-06-07 20:30] LABS: ALT 21 U/L (14-59); AST 14 U/L (15-37)
== END 2025-06-07 19:38 | disposition home or self-care (01) ==
LOC: NCHCN 19:37
PROVIDERS: PCP Physician Assistant Medical; Visit Provider Physician Assistant Medical
DX: Z51.81 Encounter for therapeutic drug level monitoring (principal)
CPT/HCPCS: 84450; 84460